=== PATIENT | female | born 1950 | race Caucasian/White ===

== ENCOUNTER 2019-10-08 04:27 | Inpatient (IN) ==
[2019-10-08] MEDS ORDERED: LORazepam 2 MG/ML VIAL (IM USE) ONE (04:35)
[2019-10-08] MEDS ORDERED: SODIUM CHLORIDE 0.9% 1000ML 1,000 ML IV ONE (04:39)
--- NOTE | 2019-10-08 04:45 | Emergency Department Note ---
Impression & Plan Breast cancer metastasized to brain, Complex partial status epilepticus, Brain edema ED Provider Note Name: SHERMAN LAND Age: 69 Sex: F Arrives Via: Ambulance Informant: Patient, EMS, Nursing ED Provider: Jv Florian MD Chief Complaint: Seizure Impression: Complex partial status epilepticus Breast Cancer Metastasized to brain Brain Edema Medical Decision Making: Very pleasant 69 yr old female arrives with several hours left leg seizing with mild headache. H/o breast CA with met to brain and resultant seizures. Brain radiation followed by keppra and decadron and seizures had stopped for the last month. They were attempting to wean down decadron over last week and she started having seizure last night. 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 She is completely A&O though clearly having partial complex seizure left leg. Given IV ativan with resolution of seizures. A bit somnolent following this but still interacting well. No evidence infection. CT head with improved size mass though some localized edema/mass effect. No midline shift. No neuro deficits. Reviewed with [facility] oncology who agree with IV steroids and monitoring here, possibly adding/changing Keppra. Hospitalist comfortable with this plan. Givne prolonged seizure she is status but she has completely resolved without further seizure at this time and I do not feel she needs emergent EEG monitoring. Prior Medical Record and Triage/Nursing Notes reviewed by Me Additional history obtained from EMS Differentials:Brain mass, Brain bleed, Edema, Infection, dehydration, metabolic abnormality, hypo/hyperglycemia, electrolyte disturbance, anemia, hypoxia, cardiac sources, intracerebral event, toxicologic, neurologic, as well as other pathologies. Vital Signs: reviewed and remarkable for wnl Interventions: saline lock, nss bolus 1 L IV, Ativan 2mg IV Labs:Reviewed and remarkable for no significant abnormalities Imaging:X ray results are stated below per my interpretation: Chest: 1 view: No infiltrate, no effusion, normal cardiac border. [facility] Radiologist interpretation reviewed by me: CT head wo con: improved size right brain mass with increased localized mass. no midline shift EKG:Per My Interpretation: Indication Seizure: AV Paced 67 bpm, qtc 511. No Ectopy. No Ischemia. Compared to EKG 08/04/19, no significant changes. Cardiac/Tele Monitoring: Cardiac Monitoring: An Order was placed for continuous cardiac monitoring. The monitor shows a rate of 60 with a normal sinus rhythm. Consults:Dr Aliya Gutierrez Oncology and Dr Nell Gutierrez Hospitalist Plan: Disposition:Hospitalization. Condition: Fair Blood pressure:Normal.No Referral necessary Prescriptions:none History of Present Illness:69 / F arrives for evaluation of seizure. Patient with history metastatic breast ca to brain with several focal seizures over last few months. Tonight with onset headache and left leg twitching at 1:30am. After 5 minutes she took extra dose of decadron and keppra and seizure seemed to ease up. However shaking has once again returned. She is now having continues left leg twitching for well over an hours associated with periodic twitching of left side, not involving left arm nor head/neck. She notes headache has improved. No vision changes nor other symptoms. Denies cp, sob, back pain, nausea, vomiting, nor other symptoms. Recent MRI brain revealed improving brain lesion and thus they have been decreasing her Decadron dose over last week. She denies change in appetite. No drugs, etoh, smoking. No falls nor head injuries. Deneis fevers, urinary symptoms, cough nor infectious symptoms. ROS: See above HPI for pertinent positives & negatives. A total of 10 systems reviewed and were otherwise negative. 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 EYES: No scleral icterus, unremarkable pupils. ENT: Mucous membranes dry, no nasal congestion. NECK: No masses appreciated, nomeningismus, trachea is midline. RESPIRATORY: No dyspnea. Clear to auscultation and equal bilaterally. No wheeze, no rhonchi. CARDIOVASCULAR: Regular rate and rhythm.No murmurs, rubs, gallops appreciated. GASTROINTESTINAL: Abdomen soft, non-tender, no peritonitis.Bowel sounds positive.No masses appreciated. BACK: No midline tenderness, no CVA tenderness EXTREMITIES: Normal motion all extremities, no cyanosis, no edema. NEUROLOGIC: focal seizing of left leg with periodic twitching of left flank. Leg extended and internally rotated with plantar flexed toes. Alert and oriented, no acute motor or sensory deficits, no focal weakness, cranial nerves grossly intact. SKIN: No rash, no jaundice, no diaphoresis. PSYCH: Appropriate GCS: 15 ED Course: Times/Reassessments: Multiple, resolution of seizure and no further headache. Neuro intact. Agrees to hospitalization Jv Florian MD Past Med/Surg History Medical History (Updated 10/09/19 @ 18:38 by Shakir Sosa MD) Breast cancer (Inactive) "s/p left mastectomy and chemotherapy" GERD (gastroesophageal reflux disease) (Inactive) H/O radioactive iodine thyroid ablation Hypothyroidism (Inactive) Pleural effusion Pneumothorax Second degree heart block Surgical History (Updated 07/25/19 @ 08:40 by Kristie Paz, MICHELLE) H/O left mastectomy (Inactive) "10/16/11 with sentinel lymph node bx" History of esophagogastroduodenoscopy (EGD) (Inactive) History of hysteroscopy (Inactive) S/P cholecystectomy (Inactive) Family History (Updated 07/25/19 @ 08:46 by Kristie Paz, MICHELLE) Mother , age 87 bowel blockage and heart diease No problems noted. Father , age 81 unknown type of cancer No problems noted. Brother No problems noted. Brother No problems noted. Sister No problems noted. Sister Cancer skin cancer Daughter No problems noted. Daughter No problems noted. 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 Other Information That Helps Us Care for You: No Feels Safe at Home: Yes Safety Concerns: Feels Safe At This Time Smoking Status: Never smoker Second Hand Exposure: No ; Hx Alcohol Use: No Hx Substance Use: No Childhood Exposure to Second-Hand Smoke: Yes caffeine: Yes (3 cups per day green tea 3 times per week) during the past year weight has: decreased > 10 lbs Dental Care, Regularly: Yes Physical Activity Frequency: Daily Physical Activity Frequency Comment: daily walks Seatbelt Use: always Sunscreen Use: Yes Allergies Allergies Allergy/AdvReac Type Severity Reaction Status Date / Time No Known Allergies Allergy Verified 10/08/19 05:38 Home Meds Home Medications Medication Instructions Recorded Confirmed calcium carbonate-vitamin D3 1 tab PO BID 07/10/19 10/08/19 [Calcium 500 With D] levothyroxine 100 mcg PO QAM 07/10/19 10/08/19 abemaciclib 150 mg tablet 150 mg PO BID 07/25/19 10/08/19 denosumab 120 mg/1.7 mL (70 mg/mL) 120 mg SQ MONTHLY ml 07/25/19 10/08/19 subcutaneous solution letrozole 2.5 mg tablet 2.5 mg PO DAILY 07/25/19 10/08/19 fluticasone propionate 50 1 sprays INTRANASAL DAILY ml 08/12/19 10/08/19 mcg/actuation nasal spray,suspension K-Phos Original 1,000 mg PO DAILY 10/08/19 10/08/19 Previous Rx's Medication Instructions Recorded dexamethasone 4 mg PO TID #60 tab 10/10/19 levetiracetam [Keppra] 1,500 mg PO BID #180 tab 10/10/19 pantoprazole [Protonix] 40 mg PO DAILY #30 tab 10/10/19 potassium chloride [Klor-Con M10] 20 meq PO DAILY #14 tab 10/10/19 Results & Data (ED) Vital Signs Vital Signs - 24 hr 10/08/19 04:36 10/08/19 05:12 Temperature 36.5 C Temperature Source Oral Pulse Rate 66 Pulse Rate [Apical] 96 H Respiratory Rate 18 18 Respiratory Effort / Characteristics Non-Labored Respiratory Depth Normal Normal Blood Pressure 148/79 H Blood Pressure [Right Arm] 124/79 Blood Pressure Mean 102 Blood Pressure Mean [Right Arm] 94 Pulse Oximetry 99 99 Oxygen Delivery Method Room Air Room Air Sepsis Recent Fever Within 48 Hours No Sepsis New/Unexplained Change in Mental Status No Sepsis Action Taken by Nursing No Action Required Laboratory Data Result diagrams: 10/09/19 05:30 10/10/19 08:55 Lab Results 10/08/19 10/08/19 Range/Units 04:40 04:40 WBC 7.01 (4.8-10.8) K/uL RBC 4.05 L (4.2-5.4) M/uL Hgb 12.9 (12.0-16.0) g/dL Hct 37.4 (37-47) % MCV 92.3 (80-100) fL MCH 31.9 (25-34) pg MCHC 34.5 (32-36) g/dL RDW Std Deviation 70.5 H (36.4-46.3) fL RDW Coeff of Mayuri 20.9 H (11.5-14.5) % Plt Count 201 (130-400) K/uL MPV 8.5 (7.4-10.4) fL Immature Gran % (Auto) 0.3 % Neut % (Auto) 72.8 % Lymph % (Auto) 19.8 % [place] % (Auto) 5.6 % Eos % (Auto) 1.1 % Baso % (Auto) 0.4 % Immature Gran # (Auto) 0.02 (0.00-0.02) K/uL Neut # (Auto) 5.10 (1.4-6.5) K/uL Lymph # (Auto) 1.39 (1.2-3.4) K/uL [place] # (Auto) 0.39 (0.11-0.59) K/uL Eos # (Auto) 0.08 (0-0.5) K/uL Baso # (Auto) 0.03 (0-0.2) K/uL Anisocytosis Present Sodium 137 (136-145) mmol/L Potassium 3.4 L (3.5-5.1) mmol/L Chloride 105 (98-107) mmol/L Carbon Dioxide 28 (21-32) mmol/L Anion Gap 4.0 (3-11) BUN 14 (7-18) mg/dl Creatinine 0.85 (0.6-1.2) mg/dl Est Cr Clr Drug Dosing 53.1 ml/min Est GFR ( Amer) 82.2 Est GFR (Non-Af Amer) 70.9 BUN/Creatinine Ratio 17.0 (10-20) Glucose 129 H (70-99) mg/dl Calcium 9.2 (8.5-10.1) mg/dl Magnesium 2.2 (1.8-2.4) mg/dl Total Creatine Kinase 75 (26-192) U/L Administered Medications Discontinued Medications Acetaminophen (Tylenol) 650 mg PO Q4H PRN PRN Reason: Pain or Fever Stop: 11/07/19 08:16 Last Admin: 10/09/19 15:21 Dose: 650 mg Documented by: [id number] Dexamethasone (Decadron) 4 mg PO Q8 SON Stop: 11/07/19 15:59 Last Admin: 10/10/19 14:28 Dose: 4 mg Documented by: [id number] Admin: 10/10/19 06:12 Dose: 4 mg Documented by: [id number] Admin: 10/09/19 21:25 Dose: 4 mg Documented by: [id number] Admin: 10/09/19 14:43 Dose: 4 mg Documented by: [id number] Admin: 10/09/19 05:39 Dose: 4 mg Documented by: [id number] Admin: 10/08/19 19:48 Dose: 4 mg Documented by: [id number] Admin: 10/08/19 16:16 Dose: 4 mg Documented by: [id number] Dexamethasone Sodium Phosphate (Decadron Pf) 10 mg IV NOW ONE Stop: 10/08/19 05:46 Last Admin: 10/08/19 05:57 Dose: 10 mg Documented by: [id number] Fluticasone Propionate (Flonase) 1 sprays NA DAILY [facility] Stop: 11/07/19 08:59 Last Admin: 10/10/19 08:01 Dose: 1 sprays Documented by: [id number] Admin: 10/09/19 09:10 Dose: 1 sprays Documented by: [id number] Admin: 10/08/19 08:58 Dose: 1 sprays Documented by: [id number] Sodium Chloride (Nss 1000ml) 1,000 mls @ 999 mls/hr IV .Q1H1M ONE Stop: 10/08/19 05:39 Last Infusion: 10/08/19 05:39 Dose: 0 mls/hr Documented by: [id number] Admin: 10/08/19 04:38 Dose: 999 mls/hr Documented by: [id number] Sodium Chloride (Nss 1000ml) 1,000 mls @ 80 mls/hr IV .[id number] SON Stop: 11/07/19 08:16 Last Infusion: 10/09/19 18:57 Dose: 0 mls/hr Documented by: [id number] Admin: 10/09/19 09:14 Dose: 80 mls/hr Documented by: [id number] Infusion: 10/09/19 08:20 Dose: 80 mls/hr Documented by: [id number] Admin: 10/08/19 19:50 Dose: 80 mls/hr Documented by: [id number] Infusion: 10/08/19 19:50 Dose: 80 mls/hr Documented by: [id number] Admin: 10/08/19 09:05 Dose: 80 mls/hr Documented by: [id number] Levetiracetam 1,000 mg/ Sodium (Chloride) 110 mls @ 440 mls/hr IV BID SON Stop: 11/07/19 08:44 Last Infusion: 10/08/19 10:07 Dose: 0 mls/hr Documented by: [id number] Admin: 10/08/19 09:18 Dose: 440 mls/hr Documented by: [id number] Dexamethasone Sodium Phosphate (4 mg/ Syringe) 1 mls @ 1 mls/min IV Q6H SON Stop: 11/07/19 08:59 Last Admin: 10/08/19 09:18 Dose: 1 mls/min Documented by: [id number] Potassium Chloride (K Leon / Wtr) 10 meq in 100 mls @ 100 mls/hr IV Q1H SON Stop: 10/08/19 10:59 Last Infusion: 10/08/19 13:19 Dose: 0 mls/hr Documented by: [id number] Admin: 10/08/19 11:10 Dose: 100 mls/hr Documented by: [id number] Infusion: 10/08/19 10:18 Dose: 100 mls/hr Documented by: [id number] Admin: 10/08/19 09:18 Dose: 100 mls/hr Documented by: [id number] Letrozole (Femara) 2.5 mg PO DAILY SON Stop: 11/07/19 08:59 Last Admin: 10/08/19 08:58 Dose: 2.5 mg Documented by: [id number] Cosigned by: [id number] Letrozole (Femara) 2.5 mg PO DAILY SON Stop: 11/07/19 08:59 Last Admin: 10/10/19 08:01 Dose: 2.5 mg Documented by: [id number] Cosigned by: [id number] Admin: 10/09/19 09:10 Dose: 2.5 mg Documented by: [id number] Cosigned by: [id number] Levetiracetam (Keppra) 1,500 mg PO BID SON Stop: 11/07/19 20:59 Last Admin: 10/10/19 08:01 Dose: 1,500 mg Documented by: [id number] Admin: 10/09/19 20:35 Dose: 1,500 mg Documented by: [id number] Admin: 10/09/19 09:10 Dose: 1,500 mg Documented by: [id number] Admin: 10/08/19 19:48 Dose: 1,500 mg Documented by: [id number] Levothyroxine Sodium (Synthroid) 100 mcg PO DAILYBB [facility] Stop: 11/07/19 08:59 Last Admin: 10/10/19 05:52 Dose: 100 mcg Documented by: [id number] Admin: 10/09/19 05:39 Dose: 100 mcg Documented by: [id number] Admin: 10/08/19 08:57 Dose: 100 mcg Documented by: [id number] Lorazepam (Ativan) Confirm Administered Dose 2 mg .ROUTE .STK-MED ONE Stop: 10/08/19 04:36 Last Admin: 10/08/19 04:36 Dose: 2 mg Documented by: [id number] Magnesium Oxide (Mag-Ox) 400 mg PO BID [facility] Stop: 11/08/19 12:59 Last Admin: 10/10/19 08:01 Dose: 400 mg Documented by: [id number] Admin: 10/09/19 20:35 Dose: 400 mg Documented by: [id number] Admin: 10/09/19 13:43 Dose: 400 mg Documented by: [id number] Miscellaneous (Order Awaiting Action) 1 ea N/A QS [facility] Stop: 11/07/19 08:34 Last Admin: 10/09/19 09:16 Dose: Not Given Documented by: [id number] Admin: 10/08/19 22:59 Dose: Not Given Documented by: [id number] Admin: 10/08/19 17:34 Dose: 1 ea Documented by: [id number] Admin: 10/08/19 13:43 Dose: Not Given Documented by: [id number] Miscellaneous (Order Awaiting Action) 1 ea N/A QS [facility] Stop: 11/07/19 08:59 Last Admin: 10/10/19 00:08 Dose: Not Given Documented by: [id number] Admin: 10/09/19 16:46 Dose: Not Given Documented by: [id number] Admin: 10/09/19 09:15 Dose: Not Given Documented by: [id number] Admin: 10/08/19 22:59 Dose: Not Given Documented by: [id number] Admin: 10/08/19 16:20 Dose: Not Given Documented by: [id number] Multivitamins/Minerals (Caltrate Plus) 1 tab PO BID SON; Protocol Stop: 11/07/19 08:59 Last Admin: 10/10/19 08:00 Dose: 1 tab Documented by: [id number] Admin: 10/09/19 20:35 Dose: 1 tab Documented by: [id number] Admin: 10/09/19 09:08 Dose: 1 tab Documented by: [id number] Admin: 10/08/19 19:48 Dose: 1 tab Documented by: [id number] Admin: 10/08/19 08:56 Dose: 1 tab Documented by: [id number] Verzenio ( Abemaciclib) 150mg - Patient's Own Med 1 ea PO BID SON; Protocol Stop: 11/07/19 12:44 Last Admin: 10/10/19 08:02 Dose: 150 mg Documented by: [id number] Admin: 10/09/19 20:35 Dose: 1 mg Documented by: [id number] Admin: 10/09/19 09:07 Dose: 150 mg Documented by: [id number] Admin: 10/08/19 17:35 Dose: Not Given Documented by: [id number] Admin: 10/08/19 13:21 Dose: 150 mg Documented by: [id number] K-Phos Original ~ Non-Formulary Patient's Own Med 2 ea PO DAILY SON Stop: 11/09/19 12:59 Last Admin: 10/10/19 14:28 Dose: 2 tabs Documented by: [id number] Potassium Chloride (Klor-Con M20) 40 meq PO ONE ONE Stop: 10/08/19 09:01 Last Admin: 10/08/19 09:17 Dose: 40 meq Documented by: [id number] Potassium Chloride (Klor-Con M20) 20 meq PO NOW STA Stop: 10/09/19 13:01 Last Admin: 10/09/19 13:43 Dose: 20 meq Documented by: [id number] Potassium Chloride (Klor-Con M20) 40 meq PO NOW STA Stop: 10/10/19 11:16 Last Admin: 10/10/19 12:47 Dose: 40 meq Documented by: [id number] Discharge Plan Visit Data *Final* Discharge Date/Time: 10/08/19 07:45 Chief Complaint: Seizure Stated Complaint: SEIZURES/HEADACHE ED Provider: Jv Florian Discharge Problem: Breast cancer metastasized to brain, Complex partial status epilepticus, Brain edema Patient Disposition: Admitted As Inpatient Discharge Instructions Interventions: ED Discharge Assessment Last Done: 10/08/19 07:45 Discharge Problem: Breast cancer metastasized to brain Qualifiers: Laterality: right Qualified Code(s): C50.911 - Malignant neoplasm of unspecified site of right female breast Complex partial status epilepticus Qualifiers: Epilepsy type: partial symptomatic Intractability: not intractable Qualified Code(s): G40.201 - Localization-related (focal) (partial) symptomatic epilepsy and epileptic syndromes with complex partial seizures, not intractable, with status epilepticus
[2019-10-08 04:54] LABS: Basophils # (auto) 0.03 K/uL (0-0.2); Basophils % (auto) 0.4 %; Eosinophils # (auto) 0.08 K/uL (0-0.5); Eosinophils % (auto) 1.1 %; Hematocrit (blood only) 37.4 % (37-47); Hemoglobin 12.9 g/dL (12.0-16.0); Immature Granulocytes # (auto) 0.02 K/uL (0.00-0.02); Immature Granulocytes % (auto) 0.3 %; Lymphocytes # (auto) 1.39 K/uL (1.2-3.4); Lymphocytes % (auto) 19.8 %; Mean Corpuscular Hemoglobin 31.9 pg (25-34); Mean Corpuscular Hgb Conc 34.5 g/dL (32-36); Mean Corpuscular Volume 92.3 fL (80-100); Mean Platelet Volume 8.5 fL (7.4-10.4); Monocytes # (auto) 0.39 K/uL (0.11-0.59); Monocytes % (auto) 5.6 %; Neutrophils % (auto) 72.8 %; Platelet Count 201 K/uL (130-400); RDW Coefficient of Variation 20.9 % (11.5-14.5); RDW Standard Deviation 70.5 fL (36.4-46.3); Red Blood Count 4.05 M/uL (4.2-5.4); White Blood Count 7.01 K/uL (4.8-10.8)
[2019-10-08 05:12] LABS: Calcium 9.2 mg/dl (8.5-10.1); Creatinine Clr Calc Pharmacy 53.1 ml/min; Est GFR (African American) 82.2; Est GFR (Non-African American) 70.9; Magnesium 2.2 mg/dl (1.8-2.4); Potassium 3.4 mmol/L (3.5-5.1)
[2019-10-08 05:29] LABS: Anisocytosis Present
[2019-10-08] MEDS ORDERED: DEXAMETHASONE **PF** INJ 10 MG/ML VIAL IV ONE (05:45)
--- NOTE | 2019-10-08 06:54 | CT Scan Report ---
CT head/brain wo con CLINICAL HISTORY: 69 years-old Female presenting with focal left leg seizure, headache, known brain m et. TECHNIQUE: Multidetector CT imaging of the head was performed without the use of intravenous contrast . IV contrast: None. One or more dose lowering techniques were used consistent with the principles of ALARA (as low as reasonably achievable), including automatic exposure control, mA or kV adjustment t o individual patient size, and/or use of iterative reconstruction. COMPARISON: MRI brain from 09/22/[address] from 07/10/2019. CT DOSE (mGy.cm): The estimated cumulative dose is 537.48 mGy.cm. FINDINGS: Motion [employer] Cartoonist topogram: Unremarkable. Ventricles and sulci normal in size. No hemorrhage. Heterogeneously hyperdense 22 mm lesion at the ri ght frontoparietal vertex with surrounding hypoattenuation within the white matter suggesting vasogen ic edema. The degree of vasogenic edema may be mildly increased. The lesion is essentially unchanged in size previously measuring 23 mm in July though possibly slightly less dense on the current exa m. Mild regional mass effect. No acute territorial infarct. No midline shift. No extra-axial fluid co llection. Paranasal sinuses and mastoid air cells clear. Calvarium intact. IMPRESSION: 1. Stable or near stable appearance of the right frontoparietal vertex hyperdense lesion with surrou nding vasogenic edema. Edema may be mildly increased. The density suggesting a hemorrhagic lesion. No new lesion. 2. No acute intracranial pathology. ACT 112: Negative or not required by law. Electronically signed by: Jacky Hernández M.D. 10/08/2019 6:53 AM
[2019-10-08] MEDS ORDERED: ACETAMINOPHEN 325 MG TAB PO PRN (08:17)
[2019-10-08] MEDS ORDERED: NITROGLYCERIN SL 0.4 MG/TAB TAB SL PRN (08:17)
[2019-10-08] MEDS ORDERED: DEXAMETHASONE SOD INJ 4 MG/ML VIAL IV SCH (08:17)
[2019-10-08] MEDS ORDERED: LORazepam 1 MG/2 ML VIAL IV PRN (08:17)
[2019-10-08] MEDS ORDERED: ONDANSETRON INJ 2 MG/ML 2 ML VIAL IV PRN (08:17)
[2019-10-08] MEDS ORDERED: POLYETHYLENE (MIRALAX) 17 GM PACK PO PRN (08:17)
[2019-10-08] MEDS ORDERED: levETIRAcetam 1,000 MG in 0.9 % SODIUM CHLORIDE 100 ML IV SCH (08:45)
[2019-10-08] MEDS: CALCIUM 600MG + VIT D 400 IU TAB PO SCH ×2 (08:56→19:48)
[2019-10-08] MEDS: LEVOTHYROXINE SODIUM 100 MCG TABLET PO SCH (08:57)
[2019-10-08] MEDS: FLUTICASONE PROPIONATE NA SPR 16 GM BTL SCH (08:58)
[2019-10-08] MEDS ORDERED: LETROZOLE 2.5 MG TAB PO SCH (09:00)
[2019-10-08] MEDS ORDERED: POTASSIUM CHLORIDE 20 MEQ TABCR PO ONE (09:00)
[2019-10-08] MEDS ORDERED: CALCIUM 600MG + VIT D 400 IU TAB PO SCH ×2 (09:00→13:00)
[2019-10-08] MEDS ORDERED: POTASSIUM PHOSPHATE MONOBASIC 500 MG TAB PO SCH (09:00)
[2019-10-08] MEDS ORDERED: DEXAMETHASONE SOD PHOSPHATE 4 MG in SYRINGE 0 ML IV SCH (09:00)
[2019-10-08] MEDS: SODIUM CHLORIDE 0.9% 1000ML 1,000 ML IV SCH ×2 (09:05→19:50)
[2019-10-08] MEDS: POTASSIUM CHLORIDE / WTR 10 MEQ/100 ML PLCT IV SCH ×2 (09:18→11:10)
--- NOTE | 2019-10-08 09:21 | History and Physical Report ---
DATE OF ADMISSION: 10/08/2019 CHIEF COMPLAINT: Seizures. HISTORY OF PRESENT ILLNESS: This is a 69-year-old female with past medical history significant for metastatic breast cancer, history of complete heart block status post pacemaker, history of angina, posterior vitreous detachment, pernicious anemia, who lives at home with , presents for focal seizures. The patient noticed in the night her left lower extremity was shaking for sometime, it stopped and again after sometime it restarted and seemed to go away, but again it started and continues to shake, which prompted her to come to the ER. She started with these seizures since July when they found her to have brain mets. She was treated with Decadron and when the Decadron was tapered down in September, again the seizures came back and she was back on Decadron 4 mg b.i.d., but recent MRI scan showed brain mass has decreased in size, so Decadron was cut back to 2 mg b.i.d., which caused again seizures today tonight. ER physician talked to environmental aid hematology/oncology and they recommended to give IV steroids and monitor her in the hospital. She received a dose of Decadron in the ER, currently resting comfortably. The patient denies any loss of consciousness. Denies any headache, no dizziness, no blurred vision, no earache, no runny nose, no sore throat, no difficulty swallowing. No cough, no chest pain or shortness of breath, no nausea, no abdominal pain. Normal bowel and bladder movements. Appetite is okay. Ambulates okay, otherwise. ALLERGIES: No known drug allergies. PAST MEDICAL HISTORY: As mentioned above. PAST SURGICAL HISTORY: Breast lesion excision, bunion correction, colonoscopy, coronary angiogram, hysteroscopy with biopsy, polypectomy, laser trabeculoplasty, left simple mastectomy, pacemaker insertion, cholecystectomy, left retinal treatment. MEDICATIONS: The patient is on abemaciclib 150 mg p.o. b.i.d., calcium with vitamin D 1 tablet b.i.d., dexamethasone 2 mg p.o. b.i.d., Flonase 1 spray intranasally daily, letrozole 2.5 mg p.o. daily, Keppra 1000 mg p.o. b.i.d., levothyroxine 100 mg p.o. a.m., potassium [id number] p.o. daily. FAMILY HISTORY: Significant for mother had cancer. Father had blood disorder, cancer, glaucoma. SOCIAL HISTORY: , lives with her . No smoking, alcohol rarely. No drug use. REVIEW OF SYMPTOMS: As per HPI. Rest of review of symptoms negative. PHYSICAL EXAMINATION: GENERAL: The patient is of moderate build, not in acute distress. VITAL SIGNS: Temperature 36.5, pulse 96, respiratory rate 18, blood pressure 124/79, oxygen 99% on room air. HEENT: No pallor, no icterus. Pupils equal, round, reactive to light. NECK: No JVD, no neck masses. CARDIOVASCULAR: S1, S2 heard, regular rate and rhythm, no murmur, no gallop. RESPIRATORY SYSTEM: Normal AP diameter. No accessory muscle use. No wheezing, no crackles. ABDOMEN: Soft, bowel sounds present, nontender. No distention. CENTRAL NERVOUS SYSTEM: Cranial nerves II-XII grossly intact. Nonfocal. EXTREMITIES: No edema, no erythema. LABORATORY DATA: WBC 7, hemoglobin 12.9, hematocrit 37.4, platelets 201. Sodium 137, potassium 3.4, chloride 105, bicarbonate 28, BUN 14, creatinine 0.8, serum glucose 129, calcium 9.2, magnesium 2.2, total creatine kinase 75. IMAGING: CT of the head, preliminary report shows 2.1 cm density in the superior right calvarium along the right frontal lobe cortex with surrounding edema, the tumor is smaller than previous when it measured 2.5 cm. The amount of surrounding edema is slightly increased. There is some local mass effect without midline shift, no hemorrhage and no lesion identified. ASSESSMENT AND PLAN: This is a 69-year-old female with metastatic breast cancer, presents with focal seizures. 1. Focal seizures secondary to brain metastasis and increased edema. Due to the size of the brain metastasis decreased recently based on the MRI finding, Decadron was decreased from 4 mg to 2 mg b.i.d. In September also when she was tapered off Decadron, she had a seizure. on Keppra 1000mg po bid t home. Currently, after receiving 10 mg of Decadron, the seizures stopped in the Emergency Room. We will place her on IV Decadron 4 mg every 6 hours, place her on IV Keppra 1000 mg b.i.d. Monitor in telemetry floor. IV Ativan for breakthrough seizures and consult neurology and radiation oncology. Closely monitor. 2. Breast cancer. Continue home medications. 3. Hypothyroidism. Continue Synthroid. 4. History of complete heart block status post pacemaker. 5. Deep venous thrombosis prophylaxis, sequential compression devices. DISPOSITION: Monitor in the tele floor. Expect discharge home and follow with family doctor. Level 1 full code. MTDD
--- NOTE | 2019-10-08 09:33 | Electrocardiogram Report ---
Test Reason : Blood Pressure : / mmHG Vent. Rate : 067 BPM Atrial Rate : 061 BPM P-R Int : 218 ms QRS Dur : 154 ms QT Int : 484 ms P-R-T Axes : 056 -59 086 degrees QTc Int : 511 ms Poor data quality, interpretation may be adversely affected AV dual-paced rhythm Abnormal ECG When compared with ECG of 10-JUL-2019 21:58, Vent. rate has decreased BY 38 BPM Confirmed by Panda Roberts ([id number]) on 10/08/2019 9:33:18 AM Referred By: REFERRED SELF Confirmed By:Panda Roberts
--- NOTE | 2019-10-08 09:38 | Communication Note ---
Date of Service: October 08, 2019 I have reviewed the chart the imaging studies and the history as outlined as I have just received a neurologic consultation on Mrs. Oswald who is 69 years old and has known metastatic breast CA with a frontal lesion with surrounding vasogenic edema that has been very sensitive to withdrawal from Decadron in the sense that attempts to withdraw at home uniformly produce breakthrough focal motor seizures and she now presents with a similar syndrome, has received high dose of Decadron at the suggestions of radiation oncology and is now seizure- free. She is on Keppra thousand milligrams twice a day and has normal renal function I would recommend that her Keppra dose be raised to 1250 mg twice a day after determining a Keppra level and that her Decadron dose be managed by radiation oncology I really do not think neurology needs to be involved in her inpatient management at this point but certainly could see her on an outpatient basis if radiation oncology would feel more comfortable with us doing this I would be happy to discuss this case further with her attending physician and will be in the hospital later this afternoon to make brief visits to other patients and will be willing to see her then r and discuss management if this is felt to be necessary on an acute basis There is no value in performing EEG at this time as diagnosis is straightforward and any findings on the EEG positive or negative would not change our approach Juventino Hill MD
--- NOTE | 2019-10-08 13:12 | Radiation OncologyConsultation ---
Date of Consultation October 08, 2019 Assessment & Plan (1) Breast cancer metastasized to brain: Assessment: Ms. Oswald is a 69-year-old female with a previous history of locally advanced left breast cancer treated with left mastectomy and axillary lymph node dissection (2011) followed by adjuvant chemotherapy and tamoxifen. The patient was found to have metastatic disease involving a solitary lesion in the brain. The patient underwent stereotactic radiosurgery which completed in August 2019. She received 2400 cGy in 3 fractions of 800 cGy per fraction. The patient is currently receiving letrozole and abemaciclib underneath the supervision of Dr. Vahe Kay. The patient has been having issues with seizures and has been on Keppra and Decadron in the outpatient setting. The patient has been following with neurology and medical oncology regarding this issue. The patient did suffer seizures and was admitted to the hospital. Neurology has given recommendations including increasing Keppra. I am now seeing the patient in consultation. Recommendation: 1. From radiation oncology perspective, continue routine imaging protocol of MRI of the brain every 3 months. I did review the imaging studies with radiology and there is no need for further scans to be done during this admission unless the patient's symptoms change dramatically and it is warranted by primary team. 2. Defer Keppra and dexamethasone to neurology in the outpatient setting. I spoke with Dr. Kay from medical oncology and the consensus is to allow 1 provider to manage both medications given the fact that the patient does have a history of seizure activity. Plan: 1. We will plan to coordinate MRI of the brain and follow-up on the patient's discharge from the hospital. It should be scheduled for mid December based on data from previous based on date from previous MRI. Please have the patient call our office when she is discharged. [phone]. 2. Recommend the primary team make sure the patient has follow-up with neurology in the outpatient setting. 3. Continue follow-up with medical oncology. 4. Continue follow-up with all the providers. 5. Patient and family encouraged to call us with any further questions or concerns. Laterality: right Qualified Code(s): C50.911 - Malignant neoplasm of unspecified site of right female breast; C79.31 - Secondary malignant neoplasm of brain Present on Admission?: Yes History of Present Illness Attending Physician: Shakir Sosa MD History of Present Illness 2012. Status post left mastectomy and left axillary lymph node dissection for breast cancer. Original pathology reveals 3 cm primary tumor, 3/8 lymph nodes positive for metastatic disease with close margins. Estrogen receptor positive, progesterone receptor positive and HER-2 negative. 2011. Status post 6 cycles of TAC chemotherapy. 2012. Status post tamoxifen for 5 years. 07/10/2019. Patient presents with seizure and emergency room department. Patient transferred to [facility] for further work-up and evaluation. 07/11/2019. MRI brain. IMPRESSION: 2.5 cm mass with surrounding edema in the right parietal lobe just behind the central sulcus. This is consistent with primary or metastatic neoplasm. Small foci of T2/FLAIR hyperintensity in the right frontal centrum semiovale and left periatrial white matter of unknown significance. Otherwise unremarkable MRI of brain with no additional lesions seen. 07/12/2019. Left pleural fluid. Metastatic carcinoma, compatible with breast primary. 07/18/2019. Medical oncology follow-up with Dr. Vahe Kay. Dr. Kay has recommended continuation of anti-hormonal therapy utilizing Femara and Abemaciclib. Dr. Kay is also recommended Xgeva. Dr. Kay is also recommended radiation oncology consultation for treatment for brain metastasis. The patient will remain on Decadron 4 mg p.o. twice daily. PET/CT also recommended. 07/21/2019. PET/CT. IMPRESSION: Hypermetabolic hypodense left upper lobe mass compatible with malignancy. Hypermetabolic bilateral mediastinal, supraclavicle and hilar lymph nodes are most suspicious for percy metastasis. Additional metastatic foci include multiple osseous lesions as described above and presumably hypermetabolic periportal lymph nodes. Moderate size left pleural effusion with component of loculation is suspicious for malignant effusion. 08/12/2019. Status post completion of radiation therapy to the brain with SBRT. She received 2400 cGy. 3 fractions, 800 cGy per fraction. 08/20/2019. Medical oncology follow-up with Dr. Kay. Dr. Kay has recommended a restaging PET/CT scan in October 2019 and a MRI brain in November 2019. Dr. Kay has recommended continuation of current medications including letrozole and abemaciclib. Has recommended the patient continue on Decadron and Keppra. 09/22/2019. MRI brain. IMPRESSION: 1. Slight interval decreased size of the intra-axial mass at the right frontoparietal vertex now measuring 21 x 19 x 22 mm. Persistent similar enhancement pattern suggests residual viable disease. No additional lesion. 09/23/2019. Neurology telemedicine visit with Dr. Dye. Dr. Dye has recommended Keppra 1000 mg twice daily and continuation of Decadron. 10/08/2019. Patient admitted to hospital due to seizures. 10/08/2019. CT of head without contrast. IMPRESSION: 1. Stable or near stable ap pearance of the right frontoparietal vertex hyperdense lesion with surrounding vasogenic edema. Edema may be mildly increased. The density suggesting a hemorrhagic lesion. No new lesion. 2. No acute intracranial pathology. 10/08/2019. Neurology communication from Dr. Hill. Dr. Hill has recommended outpatient neurology management and continuation of current medications and increasing Keppra to 1215 mg twice daily. Currently, the patient is doing better in the hospital. She does still have some tingling sensation in her left lower extremity but her seizures have resolved. Allergies Allergy/AdvReac Type Severity Reaction Status Date / Time No Known Allergies Allergy Verified 10/08/19 05:38 Home Medications Home Medications Medication Instructions Recorded Confirmed Type calcium carbonate-vitamin D3 1 tab PO BID 07/10/19 10/08/19 History [Calcium 500 With D] levothyroxine 100 mcg PO QAM 07/10/19 10/08/19 History abemaciclib 150 mg tablet 150 mg PO BID 07/25/19 10/08/19 History denosumab 120 mg/1.7 mL (70 mg/mL) 120 mg SQ MONTHLY ml 07/25/19 10/08/19 History subcutaneous solution letrozole 2.5 mg tablet 2.5 mg PO DAILY 07/25/19 10/08/19 History fluticasone propionate 50 1 sprays INTRANASAL DAILY ml 08/12/19 10/08/19 Histo ry mcg/actuation nasal spray,suspension dexamethasone 2 mg PO BID 10/08/19 10/08/19 History levetiracetam 1,000 mg PO BID 10/08/19 10/08/19 History potassium phosphate, monobasic 1,000 mg PO DAILY 10/08/19 10/08/19 History [K-Phos Original] Patient History Medical History (Updated 10/08/19 @ 05:58 by Jv Florian MD) Breast cancer (Inactive) "s/p left mastectomy and chemotherapy" GERD (gastroesophageal reflux disease) (Inactive) H/O radioactive iodine thyroid ablation Hypothyroidism (Inactive) Pleural effusion Pneumothorax Second degree heart block Surgical History (Updated 07/25/19 @ 08:40 by Kristie Paz, RN) H/O left mastectomy (Inactive) "10/16/11 with sentinel lymph node bx" History of esophagogastroduodenoscopy (EGD) (Inactive) History of hysteroscopy (Inactive) S/P cholecystectomy (Inactive) Family History (Updated 07/25/19 @ 08:46 by Kristie Paz, RN) Mother , age 87 bowel blockage and heart diease No problems noted. Father , age 81 unknown type of cancer No problems noted. Brother No problems noted. Brother No problems noted. Sister No problems noted. Sister Cancer skin cancer Daughter No problems noted. Daughter No problems noted. 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 Other Information That Helps Us Care for You: No Feels Safe at Home: Yes Safety Concerns: Feels Safe At This Time Smoking Status: Never smoker Second Hand Exposure: No ; Hx Alcohol Use: No Hx Substance Use: No Childhood Exposure to Second-Hand Smoke: Yes caffeine: Yes (3 cups per day green tea 3 times per week) during the past year weight has: decreased > 10 lbs Dental Care, Regularly: Yes Physical Activity Frequency: Daily Physical Activity Frequency Comment: daily walks Seatbelt Use: always Sunscreen Use: Yes Review of Systems Review of Systems: All systems reviewed & are unremarkable except as noted in HPI & below Physical Exam Constitutional: WD/WN, vitals as above well developed and well nourished Eyes: PERRL, conjunctivae normal, anicteric sclerae ENMT: external ear and nose normal, oropharynx normal Neck: trachea midline, no thyromegaly Respiratory: normal respiratory effort, lungs clear to auscultation Cardiovascular: RRR, no murmur, no edema Gastrointestinal (Abdomen): normal bowel sounds, soft, nontender, no hepatosplenomegaly Musculoskeletal: no cyanosis or clubbing, extremities motor strength 5/5 Skin: no rashes, warm and dry Neurologic: patellar DTR's 2+ bilat, sensation intact and PERRL, EOMI, accommodation nl, no face palsy, no dysarthria Psychiatric: A+Ox3, euthymic affect Time Spent Attending I spent 10 minutes in preparation for this consultation including reviewing all the clinical records, reviewing laboratory studies, pathology reports and imaging results. I spent 10 minutes with direct face to face interaction with the patient and/or family including performing a physical exam and answering all questions. I spent 5 minutes documenting this patient's visit. I spent 5 speaking with the following providers regarding this patient's care: Radiology, Dr. Hernández.
[2019-10-08] MEDS: VERZENIO 150 MG PO SCH ×2 (13:21→17:35)
[2019-10-08] MEDS: dexAMETHasone 4 MG TAB PO SCH ×2 (16:16→19:48)
--- NOTE | 2019-10-08 17:22 | Communication Note ---
Date of Service: October 08, 2019 I saw Kayli zuniga. She was eating supper was bright active alert talked about her left leg feeling a little unstable and describes some periodic tremulousness and it but no overt seizure activity. She has been evaluated by Dr. Sandra in our office by telephone recently and the recommendations were to bump the Keppra up to 1500 mg twice a day in the ev ent that she would have a breakthrough seizure as the Decadron was dropped and my recommendations to move up to 1250 mg twice a day on my prior note should be ignored and Dr. Sandra's recommendations followed She is being managed by radiation oncology and medical oncology for the Decadron and will be seeing Dr. Sandra in follow-up in several months time. I had suggested that we obtain a baseline Keppra level and this is been done and then I think we should have another Keppra level done in about 10 days and this sent off to Dr. Sandra for review just to be sure we do not push the Keppra into a more toxic range For now I am going to sign off the case as I suspect she will continue to improve and I hope she is ready for discharge tomorrow I have reviewed my recommendations several times today with Dr. Nikolai Hill MD
[2019-10-08] MEDS: levETIRAcetam 500 MG TAB PO SCH (19:48)
--- NOTE | 2019-10-08 19:52 | Communication Note ---
Date of Service: October 08, 2019 resting in bed, comfortable no recurrence of L LE focal seizure since admission communicated with Dr. Hill, recommend to increase Keppra to 1500mg BID discussed with Dr. Vickie Kay, will increase Decadron PO to 4mg q8h then taper weekly Shakir Sosa MD
[2019-10-09] MEDS: dexAMETHasone 4 MG TAB PO SCH ×3 (05:39→21:25)
[2019-10-09] MEDS: LEVOTHYROXINE SODIUM 100 MCG TABLET PO SCH (05:39)
[2019-10-09 05:50] LABS: Hematocrit (blood only) 35.9 % (37-47); Hemoglobin 12.2 g/dL (12.0-16.0); Immature Granulocytes # (auto) 0.03 K/uL (0.00-0.02); Immature Granulocytes % (auto) 0.4 %; Lymphocytes # (auto) 0.68 K/uL (1.2-3.4); Lymphocytes % (auto) 9.9 %; Mean Corpuscular Hemoglobin 31.5 pg (25-34); Mean Corpuscular Volume 92.8 fL (80-100); Mean Platelet Volume 8.5 fL (7.4-10.4); Monocytes # (auto) 0.32 K/uL (0.11-0.59); Monocytes % (auto) 4.6 %; Neutrophils # (auto) 5.86 K/uL (1.4-6.5); Neutrophils % (auto) 85.1 %; Platelet Count 213 K/uL (130-400); RDW Coefficient of Variation 21.2 % (11.5-14.5); RDW Standard Deviation 72.1 fL (36.4-46.3); Red Blood Count 3.87 M/uL (4.2-5.4); White Blood Count 6.89 K/uL (4.8-10.8)
[2019-10-09 06:16] LABS: Calcium 8.4 mg/dl (8.5-10.1); Creatinine Clr Calc Pharmacy 66.9 ml/min; Est GFR (African American) 104.4; Est GFR (Non-African American) 90.1; Magnesium 2.1 mg/dl (1.8-2.4); Potassium 3.6 mmol/L (3.5-5.1)
[2019-10-09 06:22] LABS: Polychromasia 1+
[2019-10-09] MEDS: VERZENIO 150 MG PO SCH ×2 (09:07→20:35)
[2019-10-09] MEDS: CALCIUM 600MG + VIT D 400 IU TAB PO SCH ×2 (09:08→20:35)
[2019-10-09] MEDS: LETROZOLE 2.5 MG TAB PO SCH (09:10)
[2019-10-09] MEDS: FLUTICASONE PROPIONATE NA SPR 16 GM BTL SCH (09:10)
[2019-10-09] MEDS: levETIRAcetam 500 MG TAB PO SCH ×2 (09:10→20:35)
[2019-10-09] MEDS: SODIUM CHLORIDE 0.9% 1000ML 1,000 ML IV SCH (09:14)
[2019-10-09 10:38] LABS: Estimated Average Glucose 120 mg/dl; Hemoglobin A1C 5.8 % (4.5-5.6)
--- NOTE | 2019-10-09 12:58 | Hospitalist Progress Note ---
Date of Service October 09, 2019 Assessment & Plan (1) Focal seizures: 69 year old female with Breast CA with Mets, Heart Block s/p PM, presenting with focal seizures. 1. Focal seizures secondary to brain metastasis and increased edema. CT head: IMPRESSION: 1. Stable or near stable appearance of the right frontoparietal vertex hyperdense lesion with surrounding vasogenic edema. Edema may be mildly increased. The density suggesting a hemorrhagic lesion. No new lesion. 2. No acute intracranial pathology. -- Keppra increased to 1500mg BID Decadron also increased to 4mg q8h -- (+) recurrences early AM discussed with Dr. Hill, maintain above doses for now will monitor closely s/p Mechanical Fall -- happened after standing up after using the toilet no LOC -- CT head: no acute injury -- denies any other pain her body -- PT/OT eval fall precautions 2. Breast cancer. Continue home medications. 3. Hypothyroidism. Continue Synthroid. 4. History of complete heart block status post pacemaker. 5. Deep venous thrombosis prophylaxis, sequential compression devices. PT/OT eval pending Admission and Anticipated Discharge Date Admission Date: October 08, 2019 Subjective ff up for focal seizures seen resting in bed, comfortable not in distress reports recurrence of LLE focal seizure at least 3x since early AM, lasted for about 3-5 minutes, less intense associated with mild headache- resolved denies other symptoms Review of Systems Review of Systems: All systems reviewed & are unremarkable except as noted in HPI & below Physical Exam Physical Exam: General- oriented x 3, not in distress, speaks in sentences with no effort or accessory muscle use Eyes- anicteric Neck- no JVD Lungs- clear breath sounds bilaterally, no rales/wheezes Heart- normal rate, regular rhythm; no murmurs Abdomen- normal bowel sounds, nondistended, soft, nontender Extremities- no pretibial edema, no calf tenderness Neuro- alert, oriented x 3; no gross focal neurologic deficits Skin- warm & dry Results & Data Results & Data ([facility]) Vital Signs (Past 12 Hours) Vital Signs Temp Pulse Resp BP Pulse Ox 10/09/19 11:11 36.8 C 81 17 131/84 98 10/09/19 07:08 36.6 C 86 18 140/80 97 10/09/19 03:26 36.5 C 77 16 127/78 97 Laboratory Results Laboratory Results - last 24 hr 10/09/19 10/09/19 10/09/19 05:30 05:30 05:30 WBC 6.89 RBC 3.87 L Hgb 12.2 Hct 35.9 L MCV 92.8 MCH 31.5 MCHC 34.0 RDW Std Deviation 72.1 H RDW Coeff of Mayuri 21.2 H Plt Count 213 MPV 8.5 Immature Gran % (Auto) 0.4 Neut % (Auto) 85.1 Lymph % (Auto) 9.9 Giles % (Auto) 4.6 Eos % (Auto) 0.0 Baso % (Auto) 0.0 Immature Gran # (Auto) 0.03 H Neut # (Auto) 5.86 Lymph # (Auto) 0.68 L Giles # (Auto) 0.32 Eos # (Auto) 0.00 Baso # (Auto) 0.00 Polychromasia 1+ Sodium 134 L Potassium 3.6 Chloride 107 Carbon Dioxide 21 Anion Gap 6.0 BUN 14 Creatinine 0.69 Est Cr Clr Drug Dosing 66.9 Est GFR ( Amer) 104.4 Est GFR (Non-Af Amer) 90.1 BUN/Creatinine Ratio 20.0 Glucose 132 H Estimat Average Glucose 120 Hemoglobin A1c 5.8 H Calcium 8.4 L Magnesium 2.1
[2019-10-09] MEDS ORDERED: POTASSIUM CHLORIDE 20 MEQ TABCR PO STA (13:00)
[2019-10-09] MEDS: MAGNESIUM OXIDE 400 MG TAB PO SCH ×2 (13:43→20:35)
--- NOTE | 2019-10-09 15:19 | CT Scan Report ---
CT head/brain wo con CLINICAL HISTORY: Head trauma. Head pain. NO INTRACRANIAL METASTASIS. COMPARISON STUDY: 10/08/2019 TECHNIQUE: Axial CT of the brain is performed from the vertex to the skull base. IV contrast was not administered for this examination. A dose lowering technique was utilized adhering to the principles of ALARA. CT DOSE: 537.48 mGy.cm FINDINGS: There is a 16 mm slightly hyperdense mass within the right frontoparietal vertex with surrounding vas ogenic edema. There is no evidence of acute hemorrhage. There is no midline shift. There is no CT bradly dence of acute cortical infarction. There are minimal white matter hypodensities likely on a small vessel basis. There is no evidence of pathologic ventricular dilatation. There is no evidence of acute sinusitis IMPRESSION: 1. No acute intracranial findings 2. Slight interval decrease in the size of the right frontal parietal vertex mass with surrounding va sogenic edema 3. No evidence of acute intracranial injury. ACT 112: Negative or not required by law. Electronically signed by: Melvin Butler M.D. 10/09/2019 3:17 PM
--- NOTE | 2019-10-09 18:35 | Communication Note ---
Date of Service: Oct 09 2019 informed me that Mrs. Oswald has had several brief focal motor seizures this morning and I suggested that he continue the Keppra 1500 mg twice a day for for another 24 hours. It may take some time for the Keppra level to reach an appropriate point and the effect of Decadron will need more time to combat the peritumoral edema and hopefully result in better seizure control. These type of focal seizures may prove to be very difficult to manage totally but if they continue in this particular case the choices are to either add another anticonvulsant or push monotherapy little harder and move the Keppra up to 1750 mg twice a day as Dr. Delgado will be assuming the neurology service tomorrow and I would suggest that if this focal motor seizure activity continues he be contacted for advice. HE may prefer to add a second anticonvulsant such as Depakote or even carbamazepine derivative or conceivably Vimpat rather than increasing the Keppra Juventino Hill MD
[2019-10-10] MEDS: LEVOTHYROXINE SODIUM 100 MCG TABLET PO SCH (05:52)
[2019-10-10] MEDS: dexAMETHasone 4 MG TAB PO SCH ×2 (06:12→14:28)
[2019-10-10] MEDS: CALCIUM 600MG + VIT D 400 IU TAB PO SCH (08:00)
[2019-10-10] MEDS: levETIRAcetam 500 MG TAB PO SCH (08:01)
[2019-10-10] MEDS: FLUTICASONE PROPIONATE NA SPR 16 GM BTL SCH (08:01)
[2019-10-10] MEDS: MAGNESIUM OXIDE 400 MG TAB PO SCH (08:01)
[2019-10-10] MEDS: LETROZOLE 2.5 MG TAB PO SCH (08:01)
[2019-10-10] MEDS: VERZENIO 150 MG PO SCH (08:02)
[2019-10-10 09:41] LABS: Potassium 3.4 mmol/L (3.5-5.1)
[2019-10-10 09:42] LABS: Magnesium 2.3 mg/dl (1.8-2.4)
[2019-10-10] MEDS ORDERED: POTASSIUM CHLORIDE 20 MEQ TABCR PO STA (11:15)
--- NOTE | 2019-10-10 11:59 | Hospitalist Progress Note ---
Date of Service October 10, 2019 Assessment & Plan (1) Focal seizures: 69 year old female with Breast CA with Mets, Heart Block s/p PM, presenting with focal seizures. 1. Focal seizures secondary to brain metastasis and increased edema. CT head: IMPRESSION: 1. Stable or near stable appearance of the right frontoparietal vertex hyperdense lesion with surrounding vasogenic edema. Edema may be mildly increased. The density suggesting a hemorrhagic lesion. No new lesion. 2. No acute intracranial pathology. -- Keppra increased to 1500mg BID Decadron also increased to 4mg q8h -- no recurrence since yesterday afternoon LLE with some numbness Neuro re-eval today pending s/p Mechanical Fall -- happened after standing up after using the toilet 10/09/19 no LOC -- CT head: no acute injury -- denies any other pain her body -- PT/OT eval: 25/12 care or Rehab- patient prefers to come home, very supportive fall precautions 2. Breast cancer. Continue home medications. 3. Hypothyroidism. Continue Synthroid. 4. History of complete heart block status post pacemaker. 5. Deep venous thrombosis prophylaxis, sequential compression devices. PT/OT eval: 25/12 care or Rehab- patient prefers to come home, very supportive Disposition possible d/c home today with home health services when cleared by Neuro Admission and Anticipated Discharge Date Admission Date: October 08, 2019 Subjective ff up for focal seizures seen resting in bed, sitting up comfortable, in good spirits states she feels better today no focal seizures since yesterday afternoon no headache does report some numbness and some loss of coordination with left lower leg no chest pain, dyspnea, dizziness ambulating to the bathroom ok as per patient no other symptoms would like to be discharged home today if possible Review of Systems Review of Systems: All systems reviewed & are unremarkable except as noted in HPI & below Physical Exam Physical Exam: General- oriented x 3, not in distress, speaks in sentences with no effort or accessory muscle use Eyes- anicteric Neck- no JVD Lungs- clear breath sounds bilaterally, no crackles no wheezing Heart- normal rate, regular rhythm; no murmurs Abdomen- normal bowel sounds, nondistended, soft, nontender Extremities- no pretibial edema, no calf tenderness Neuro- alert, oriented x 3; sensation on the left lower le%, no gross focal neurologic deficits Skin- warm & dry Results & Data Results & Data ([facility]) Vital Signs (Past 12 Hours) Vital Signs Temp Pulse Pulse Resp BP Pulse Ox 10/10/19 11:23 36.4 C L 76 18 129/81 97 10/10/19 07:11 36.9 C 77 18 143/85 H 97 10/10/19 07:04 77 10/10/19 04:01 36.5 C 68 18 133/84 97 Laboratory Results Laboratory Results - last 24 hr 10/10/19 08:55 Potassium 3.4 L Magnesium 2.3
[2019-10-10] MEDS ORDERED: [UNRECOGNIZED DRUG - OTHER] PO SCH (13:00)
[2019-10-10] MEDS ORDERED: POT PHOSPHATE MONOBASIC W/ SOD TAB PO SCH (13:00)
[2019-10-10 15:03] VITALS: BP 129/81; PULSE 93; TEMP 97.5; O2SAT 97
--- NOTE | 2019-10-10 16:17 | Discharge Summary ---
Date of Service October 10, 2019 Admission HPI Per Admitting Provider HISTORY OF PRESENT ILLNESS: This is a 69-year-old female with past medical history significant for metastatic breast cancer, history of complete heart block status post pacemaker, history of angina, posterior vitreous detachment, pernicious anemia, who lives at home with , presents for focal seizures. The patient noticed in the night her left lower extremity was shaking for sometime, it stopped and again after sometime it restarted and seemed to go away, but again it started and continues to shake, which prompted her to come to the ER. She started with these seizures since July when they found her to have brain mets. She was treated with Decadron and when the Decadron was tapered down in September, again the seizures came back and she was back on Decadron 4 mg b.i.d., but recent MRI scan showed brain mass has decreased in size, so Decadron was cut back to 2 mg b.i.d., which caused again seizures today tonight. 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 She received a dose of Decadron in the ER, currently resting comfortably. The patient denies any loss of consciousness. Denies any headache, no dizziness, no blurred vision, no earache, no runny nose, no sore throat, no difficulty swallowing. No cough, no chest pain or shortness of breath, no nausea, no abdominal pain. Normal bowel and bladder movements. Appetite is okay. Ambulates okay, otherwise. Admission Exam Per Admitting Provider GENERAL: The patient is of moderate build, not in acute distress. VITAL SIGNS: Temperature 36.5, pulse 96, respiratory rate 18, blood pressure 124/79, oxygen 99% on room air. HEENT: No pallor, no icterus. Pupils equal, round, reactive to light. NECK: No JVD, no neck masses. CARDIOVASCULAR: S1, S2 heard, regular rate and rhythm, no murmur, no gallop. RESPIRATORY SYSTEM: Normal AP diameter. No accessory muscle use. No wheezing, no crackles. ABDOMEN: Soft, bowel sounds present, nontender. No distention. CENTRAL NERVOUS SYSTEM: Cranial nerves II-XII grossly intact. Nonfocal. EXTREMITIES: No edema, no erythema. Principal Diagnosis BREAKTHROUGH FOCAL SEIZURES, BREAST CANCER WITH BRAIN METASTASES Discharge Exam General- oriented x 3, not in distress, speaks in sentences with no effort or accessory muscle use Eyes- anicteric Neck- no JVD Lungs- clear breath sounds bilaterally, no crackles no wheezing Heart- normal rate, regular rhythm; no murmurs Abdomen- normal bowel sounds, nondistended, soft, nontender Extremities- no pretibial edema, no calf tenderness Neuro- alert, oriented x 3; sensation on the left lower le%, no gross focal neurologic deficits Skin- warm & dry Discharge Data Allergies Allergy/AdvReac Type Severity Reaction Status Date / Time No Known Allergies Allergy Verified 10/08/19 05:38 Consultations 10/08/19 05:49 ED Decision to Admit Stat 10/08/19 08:17 Consult Case Management - Discharge Planning Routine Consult Neurology Routine Consult Radiation Oncology Routine Ordered Studies 10/08/19 04:38 CT head/brain wo con Urgent Ventricles and sulci normal in size. No hemorrhage. Heterogeneously hyperdense 22 mm lesion at the right frontoparietal vertex with surrounding hypoattenuation within the white matter suggesting vasogenic edema. The degree of vasogenic edema may be mildly increased. The lesion is essentially unchanged in size previously measuring 23 mm in July though possibly slightly less dense on the current exam. Mild regional mass effect. No acute territorial infarct. No midline shift. No extra-axial fluid collection. Paranasal sinuses and mastoid air cells clear. Calvarium intact. IMPRESSION: 1. Stable or near stable appearance of the right frontoparietal vertex hyperdense lesion with surrounding vasogenic edema. Edema may be mildly increased. The density suggesting a hemorrhagic lesion. No new lesion. 2. No acute intracranial pathology. 10/09/19 14:31 CT head/brain wo con Stat There is a 16 mm slightly hyperdense mass within the right frontoparietal vertex with surrounding vasogenic edema. There is no evidence of acute hemorrhage. There is no midline shift. There is no CT evidence of acute cortical infarction. There are minimal white matter hypodensities likely on a small vessel basis. There is no evidence of pathologic ventricular dilatation. There is no evidence of acute sinusitis IMPRESSION: 1. No acute intracranial findings 2. Slight interval decrease in the size of the right frontal parietal vertex mass with surrounding vasogenic edema 3. No evidence of acute intracranial injury. Hospital Course (1) Focal seizures: 69 year old female with Breast CA with Mets, Heart Block s/p PM, presenting with focal seizures. Focal seizures secondary to brain metastasis and increased edema. CT head: IMPRESSION: 1. Stable or near stable appearance of the right frontoparietal vertex hyperdense lesion with surrounding vasogenic edema. Edema may be mildly increased. The density suggesting a hemorrhagic lesion. No new lesion. 2. No acute intracranial pathology. -- evaluated by Neurologist Dr. Hill and Rad Onco Dr. Vickie Kay -- Keppra increased to 1500mg BID (from 1,000mg BID) Decadron also increased to 4mg q8h (from 2mg BID) -- focal seizures improved, then resolved during admission -- discharge on: Keppra 1,500mg BID, then ff up with Neuro via Telemedicine on 10/14/19 Decadron 4mg TID x 1 week, then 4mg BID, then further dosing per Dr. Carmen Kay on ff up within 1-2 weeks s/p Mechanical Fall -- happened after standing up after using the toilet 10/09/19 no loss of consciousness -- repeat CT head: no acute injury -- denies any other pain -- PT/OT eval: 25/12 care or Rehab- patient prefers to come home, very supportive discussed risks of not undergoing inpatient rehab or home PT/OT including injuries, falls, and she is understanding and accepting advised to always ambulate carefully, always use the walker, and continue PT/OT exercises at home Mild Hypokalemia -- K 3.4 -- K 20meq daily x 1 week repeat on ff up with PCP and monitor regularly -- also on K phos and Mg supplement Breast cancer. Continue home medications. Hypothyroidism. Continue Synthroid. History of complete heart block status post pacemaker. no issues Disposition d/c home ff up with PCP Dr. Katlin Kay next week 10/16/19 ff up with Neuro via Telemedicine 10/14/19 ff up with Oncologist Dr. Carmen Kay in 1-2 weeks Total Time Total Time Spent Total Time Spent (In Minutes): 65 minutes Discharge Plan Discharge Items Patient Disposition: Home - Self-Care Reason For Visit: SEIZURE Discharge Diagnosis: FOCAL SEIZURE Activity: Resume your previous activity Activity Comment: RESUME ACTIVITY GRADUALLY TOLERATED, ALWAYS AMBULATE CAREFULLY W/ WALKER Lifting: Wait until after follow-up appointment Exercise/Sports: Wait until after follow-up appointment Driving/Machine Use: NO DRIVING UNTIL RE-EVALUATED AND ALLOWED BY PRIMARY CARE PHYSICIAN NEXT WEEK Non-emergency contact: Primary Care Provider and Neurologist Call non-emergency contact if: you have any medication questions, your symptoms worsen and you have a fever Follow-up/Referrals: Katlin Kay MD [Primary Care Provider] - 10/16/19 8:20 am Kj Dey MD [Physician] - Diet: Heart Healthy Addtl Attending Provider Instructions: PLEASE REVIEW YOUR NEW MEDICATION LIST AND FOLLOW INSTRUCTIONS CAREFULLY. MEDICATION CHANGES: KEPPRA INCREASED TO 1,500MG TWICE A DAY DECADRON INCREASED TO 4MG THREE TIMES A DAY X 1 WEEK, THEN 4MG TWICE A DAY, FURTHER INSTRUCTIONS C/O NEUROLOGIST (ALWAYS TAKE DECADRON WITH A FULL STOMACH) START POTASSIUM SUPPLEMENT ONCE A DAY X 1 WEEK START PROTONIX ONCE A DAY TO PREVENT STOMACH ULCER/GASTRITIS INCLUDE FOOD HIGH IN POTASSIUM CONTENT IN YOUR DAILY DIET INCLUDING BANANAS, TOMATOES, ORANGES, ETC. CALL YOUR PRIMARY CARE PHYSICIAN OR NEUROLOGIST IF WITH RECURRENCE OF LEG SHAKING. IF LEG SHAKING IS SEVERE, RETURN TO ER IMMEDIATELY OR CALL 911. FOLLOW UP WITH PRIMARY CARE PROVIDER NEXT WEEK OUTLINED ABOVE. NEUROLOGY PA KJ KUHN WILL FOLLOW UP WITH YOU BY CALLING YOU ON OCTOBER 14, 2019 AT 1:00PM [facility] OF DR. CARMEN KAY (ONCOLOGIST) WILL CALL YOU FOR FOLLOW UP WITHIN 1-2 WEEKS. Pending Studies at Discharge: No Stand-Alone Forms: My [facility] French Girls, Smoking Cessation Medications and DC Order Prescriptions: New levetiracetam [Keppra] 500 mg Tablet 1,500 mg PO BID Qty: 180 RF: 2 dexamethasone 4 mg Tablet 4 mg PO TID Qty: 60 RF: 2 potassium chloride [Klor-Con M10] 10 mEq tablet,ER particles/crystals 20 meq PO DAILY Qty: 14 RF: 0 pantoprazole [Protonix] 40 mg tablet,delayed release (DR/EC) 40 mg PO DAILY Qty: 30 RF: 0 Continued letrozole 2.5 mg tablet 2.5 mg PO DAILY RF: 0 Verzenio 150 mg tablet 150 mg PO BID RF: 0 Xgeva 120 mg/1.7 mL (70 mg/mL) solution 120 mg SQ MONTHLY RF: 0 levothyroxine 100 mcg Tablet 100 mcg PO QAM RF: 0 calcium carbonate-vitamin D3 [Calcium 500 With D] 500 mg(1,250mg) -400 unit Tablet 1 tab PO BID RF: 0 fluticasone propionate 50 mcg/actuation spray,suspension 1 sprays INTRANASAL DAILY RF: 0 K-Phos Original 500 mg tablet,soluble 1,000 mg PO DAILY RF: 0 Discontinued dexamethasone 2 mg tablet 2 mg PO BID RF: 0 levetiracetam 1,000 mg tablet 1,000 mg PO BID RF: 0 Discharge Orders: Discharge Order (Routine); Ordered 10/10/19 Ordered By: Shakir Sosa Admission Data Admit Date/Time: 10/08/19 06:27 Attending Provider: Shakir Sosa Admit Provider: Dave Camejo Primary Care Provider: Katlin Kay Other Providers: Dave Camejo ; Kj Kuhn ; Juventino Hill ; Kj Dye ; Temo Delgado ; Vickie Kay ; Erik Jones Other Interventions: Discharge Summary Assessment (RN) Last Done: 10/10/19 15:00
== END 2019-10-10 16:19 | disposition home or self-care (01) | DRG 100 ==
LOC: ED 04:27 → 2S 06:27 → SUATTDRO 06:27 → 2S 07:45

== ENCOUNTER 2020-10-06 09:23 | Inpatient (IN) ==
--- NOTE | 2020-10-06 10:28 | Emergency Department Note ---
Impression & Plan SOB (shortness of breath), Breast cancer, Pleural effusion on left ED Provider Note INFORMANT: Patient ED PROVIDER(S): Juventino Clements MD CHIEF COMPLAINT: SOB PLAN: Disposition: admitted Condition: Good Outpatient prescription management: none Referral: None MEDICAL DECISION MAKING: Patient presented because of shortness of breath. She was concerned about a recurrent effusion. She has had pleural effusions drained on both sides. Chest x-ray shows a large left pleural effusion. The patient's blood work was unremarkable except she does have mild hyponatremia. The patient will need further management in hospital. [facility] The patient was evaluated in the ER admitted for further management. Triage Nursing notes reviewed and agree them. Vital Signs: reviewed and remarkable for no significant abnormalities Differential diagnosis: Recurrent effusion, Reactive airway disease, pneumonia, pneumothorax, COPD, CHF, infections, cardiac ischemia, pulmonary embolism, musculoskeletal, gastrointestinal, as well as other pathologies. Diagnostics interpreted by me: ECG: Atrial sensed V-paced rhythm at 90. Prolonged AV conduction. No ST elevation or depression. Cardiac Monitoring: Cardiac monitoring ordered by me: The patient was placed on continuous cardiac monitoring and observed. It revealed a paced rhythm at 98 BPM> Imaging studies: Chest x-ray reveals a large left-sided pleural effusion with white out of the left hemithorax. I refer you to the EMR for further details. HPI: The patient is a 70 year old female who presents to the Emergency Room with complaints of SOB. This started weeks ago and is worsening over the last 7 days or so. The patient also notes the following associated symptoms, slight cough. The patient has found no relieving factors. Current pain is rated as 0/10. Hx of thoracentesis and metastatic breast CA. Pt denies LOC, headache, fevers, chills, diaphoresis, visual changes, neck pain, chest pain, nausea, vomiting, abdominal pain, back pain, melena, hematochezia, urinary symptoms, numbness, weakness, lymphadenopathy, rash, or other complaints. ROS: See above HPI for pertinent positives & negatives. A total of 10 systems reviewed and were otherwise negative. PAST MEDICAL HISTORY:See Below , breast CA PAST SURGICAL HISTORY:See Below,pacer FAMILY HISTORY:See Below SOCIAL HISTORY:See Below, retired HOME MEDICATIONS:See Below ALLERGIES:See Below VITALS:See Below PHYSICAL EXAMINATION: GENERAL: Awake, alert, dyspneic-appearing, in no distress HENT: Normocephalic, atraumatic. Oropharynx unremarkable. EYES: Normal conjunctiva. Sclera non-icteric. NECK: Inspection normal. Non-tender. Supple. No nuchal rigidity. FROM. No masses. RESPIRATORY: Diminished on the left. No wheezes. No rales. Increased respiratory effort. CARDIAC: Normal rate. Normal rhythm. No murmurs. No rubs. Extremities warm and well perfused. Pulses equal. No JVD. GI: Soft, non-distended. No tenderness to palpation. No rebound or guarding. No masses. RECTAL: Deferred. MUSCULOSKELETAL: Atraumatic. Chest examination reveals no tenderness. The back is symmetrical on inspection without obvious abnormality. There is no CVA tenderness to palpation. No joint edema. LOWER EXTREMITIES: Calves are equal size bilaterally and non-tender. No edema. No discoloration. NEURO: Normal sensorium. No sensory or motor deficits noted. SKIN: No rash or jaundice noted. Juventino Clements MD Past Med/Surg History Medical History (Updated 10/06/20 @ 18:51 by Juventino Clements MD) Brain edema Breast cancer "s/p left mastectomy and chemotherapy" Complex partial status epilepticus Focal seizures GERD (gastroesophageal reflux disease) H/O radioactive iodine thyroid ablation Hypothyroidism Pacemaker Since 2014 Pleural effusion Pneumothorax Second degree heart block Surgical History H/O left mastectomy "10/16/11 with sentinel lymph node bx" History of esophagogastroduodenoscopy (EGD) History of hysteroscopy S/P cholecystectomy Family History Mother , age 87 bowel blockage and heart diease No problems noted. Father , age 81 unknown type of cancer No problems noted. Brother No problems noted. Brother No problems noted. Sister No problems noted. Sister Cancer skin cancer Daughter No problems noted. Daughter No problems noted. 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 Feels Safe at Home: Yes Childhood Exposure to Second-Hand Smoke: Yes caffeine: Yes (3 cups per day green tea 3 times per week) during the past year weight has: decreased > 10 lbs Dental Care, Regularly: Yes Physical Activity Frequency: Daily Physical Activity Frequency Comment: daily walks Seatbelt Use: always Sunscreen Use: Yes Assistive Devices: Glasses and Walker Allergies Allergies Allergy/AdvReac Type Severity Reaction Status Date / Time No Known Allergies Allergy Verified 10/06/20 12:18 Home Meds Home Medications Medication Instructions Recorded Confirmed calcium carbonate-vitamin D3 1 tab PO BID 07/10/19 10/06/20 [Calcium 500 With D] levothyroxine 100 mcg PO QAM 07/10/19 10/06/20 denosumab 120 mg/1.7 mL (70 mg/mL) 120 mg SQ MONTHLY ml 07/25/19 10/06/20 subcutaneous solution fluticasone propionate 50 1 sprays INTRANASAL QAM ml 08/12/19 10/06/20 mcg/actuation nasal spray,suspension lacosamide 100 mg tablet 200 mg PO BID 10/23/19 10/06/20 levetiracetam 1,000 mg tablet 1,000 mg PO BID 10/23/19 10/06/20 levetiracetam 750 mg tablet 750 mg PO BID tab 10/23/19 10/06/20 potassium phosphate, monobasic 500 500 mg PO BID tab 01/14/20 10/06/20 mg soluble tablet Results & Data (ED) Vital Signs Vital Signs - 24 hr 10/06/20 09:30 10/06/20 10:35 Temperature 37.0 C Temperature Source Skin Pulse Rate 60 Pulse Rhythm Regular Pulse Strength Normal Respiratory Rate 24 Respiratory Effort / Characteristics Non-Labored Respiratory Depth Normal Respiratory Pattern Regular Blood Pressure 149/91 H Blood Pressure Mean 110 Pulse Oximetry 100 96 Oxygen Delivery Method Room Air Room Air Sepsis Recent Fever Within 48 Hours No Sepsis New/Unexplained Change in Mental Status N/A Sepsis Action Taken by Nursing No Action Required Laboratory Data Result diagrams: 10/06/20 10:30 10/06/20 10:30 Lab Results 10/06/20 10/06/20 10/06/20 Range/Units 10:30 10:30 10:30 WBC 3.95 L (4.8-10.8) K/uL RBC 3.95 L (4.2-5.4) M/uL Hgb 12.4 (12.0-16.0) g/dL Hct 35.4 L (37-47) % MCV 89.6 (80-100) fL MCH 31.4 (25-34) pg MCHC 35.0 (32-36) g/dL RDW Std Deviation 43.5 (36.4-46.3) fL RDW Coeff of Mayuri 13.3 (11.5-14.5) % Plt Count 374 (130-400) K/uL MPV 8.6 (7.4-10.4) fL Immature Gran % (Auto) 0.3 % Neut % (Auto) 71.1 % Lymph % (Auto) 13.4 % [place] % (Auto) 12.7 % Eos % (Auto) 1.5 % Baso % (Auto) 1.0 % Neut # (Auto) 2.81 (1.4-6.5) K/uL Lymph # (Auto) 0.53 L (1.2-3.4) K/uL [place] # (Auto) 0.50 (0.11-0.59) K/uL Eos # (Auto) 0.06 (0-0.5) K/uL Baso # (Auto) 0.04 (0-0.2) K/uL Immature Gran # (Auto) 0.01 (0.00-0.02) K/uL PT (9.0-12.0) Seconds INR (0.9-1.1) Sodium 129 L (136-145) mmol/L Potassium 3.3 L (3.5-5.1) mmol/L Chloride 93 L (98-107) mmol/L Carbon Dioxide 27 (21-32) mmol/L Anion Gap 9.0 (3-11) BUN 7 (7-18) mg/dl Creatinine 0.51 L (0.6-1.2) mg/dl Est Cr Clr Drug Dosing 87.3 ml/min Est GFR ( Amer) 114.5 Est GFR (Non-Af Amer) 98.8 BUN/Creatinine Ratio 13.8 (10-20) Glucose 103 H (70-99) mg/dl Osmolality (280-300) mOsm/kg Calcium 9.4 (8.5-10.1) mg/dl Total Bilirubin 0.3 (0.2-1) mg/dl AST 27 (15-37) U/L ALT 19 (12-78) U/L Alkaline Phosphatase 92 (45-117) U/L Troponin I < 0.015 (0-0.045) ng/ml NT-Pro-B Natriuret Pep 264 (0-900) pg/ml Total Protein 7.6 (6.4-8.2) gm/dl Albumin 3.2 L (3.4-5.0) gm/dl Globulin 4.4 H (2.5-4.0) gm/dl Albumin/Globulin Ratio 0.7 L (0.9-2) COVID-19 Eval Order CovFluRsv at [facility] SARS-CoV-2 (PCR) (Negative) Influenza Type A (PCR) (Neg) Influenza Type B (PCR) (Neg) RSV (RT-PCR) (Neg) 10/06/20 10/06/20 10/06/20 Range/Units 10:30 10:30 10:30 WBC (4.8-10.8) K/uL RBC (4.2-5.4) M/uL Hgb (12.0-16.0) g/dL Hct (37-47) % MCV (80-100) fL MCH (25-34) pg MCHC (32-36) g/dL RDW Std Deviation (36.4-46.3) fL RDW Coeff of Mayuri (11.5-14.5) % Plt Count (130-400) K/uL MPV (7.4-10.4) fL Immature Gran % (Auto) % Neut % (Auto) % Lymph % (Auto) % [place] % (Auto) % Eos % (Auto) % Baso % (Auto) % Neut # (Auto) (1.4-6.5) K/uL Lymph # (Auto) (1.2-3.4) K/uL [place] # (Auto) (0.11-0.59) K/uL Eos # (Auto) (0-0.5) K/uL Baso # (Auto) (0-0.2) K/uL Immature Gran # (Auto) (0.00-0.02) K/uL PT 10.6 (9.0-12.0) Seconds INR 1.0 (0.9-1.1) Sodium (136-145) mmol/L Potassium (3.5-5.1) mmol/L Chloride (98-107) mmol/L Carbon Dioxide (21-32) mmol/L Anion Gap (3-11) BUN (7-18) mg/dl Creatinine (0.6-1.2) mg/dl Est Cr Clr Drug Dosing ml/min Est GFR ( Amer) Est GFR (Non-Af Amer) BUN/Creatinine Ratio (10-20) Glucose (70-99) mg/dl Osmolality 265 L (280-300) mOsm/kg Calcium (8.5-10.1) mg/dl Total Bilirubin (0.2-1) mg/dl AST (15-37) U/L ALT (12-78) U/L Alkaline Phosphatase (45-117) U/L Troponin I (0-0.045) ng/ml NT-Pro-B Natriuret Pep (0-900) pg/ml Total Protein (6.4-8.2) gm/dl Albumin (3.4-5.0) gm/dl Globulin (2.5-4.0) gm/dl Albumin/Globulin Ratio (0.9-2) COVID-19 Eval Order SARS-CoV-2 (PCR) NEGATIVE (Negative) Influenza Type A (PCR) Negative (Neg) Influenza Type B (PCR) Negative (Neg) RSV (RT-PCR) Negative (Neg) Administered Medications Discontinued Medications Ioversol (Optiray 350 500ml) 120 ml IV ONCE ONE Stop: 10/06/20 13:57 Last Admin: 10/06/20 13:57 Dose: 120 ml Documented by: [id number] Labetalol HCl (Labetalol Hcl Iv 5 Mg/Ml 20ml) 5 mg IV NOW STA Stop: 10/06/20 13:45 Last Admin: 10/06/20 14:11 Dose: 5 mg Documented by: [id number] Cosigned by: [id number] Potassium Chloride (Potassium Chloride Crtab 20 Meq Tabcr) 40 meq PO NOW STA Stop: 10/06/20 13:09 Last Admin: 10/06/20 13:34 Dose: 40 meq Documented by: [id number] Imaging Data Radiologist's Impression: Chest X-Ray 10/06/20 09:40 SINGLE VIEW CHEST CLINICAL HISTORY: Dyspnea. FINDINGS: 2 AP, portable, upright chest radiographs are compared to study dated 02/27/2016. Correlation is made with PET/CT dated 11/03/2019. A 2-lead cardiac pacemaker is unchanged in position. There is complete opacification of the left hemithorax, likely representing atelectasis of the left lung and pleural effusion. There is associated leftward shift of the mediastinum. The cardiomediastinal silhouette is obscured. There is trace pleural effusion at the right lung base with right basilar atelectasis. No pneumothorax is seen. The skeletal structures are osteopenic. There are healed bilateral rib fractures. IMPRESSION: 1. There is complete opacification of the left hemithorax. This likely represents atelectasis of the left lung and pleural effusion, and this has significantly progressed as compared to the 11/03/2019 PET examination. 2. There is a small right pleural effusion with right basilar atelectasis ACT 112: Negative or not required by law. Electronically signed by: Mitchel Keith M.D. 10/06/2020 10:56 AM Discharge Plan Visit Data Chief Complaint: Shortness of Breath/Dyspnea Stated Complaint: SOB ED Provider: Juventino Clements Discharge Problem: SOB (shortness of breath), Breast cancer, Pleural effusion on left Patient Disposition: Admitted As Inpatient Discharge Instructions Interventions: ED Discharge Assessment Last Done: 10/06/20 14:49
[2020-10-06 10:43] LABS: Basophils # (auto) 0.04 K/uL (0-0.2); Eosinophils # (auto) 0.06 K/uL (0-0.5); Eosinophils % (auto) 1.5 %; Hematocrit (blood only) 35.4 % (37-47); Hemoglobin 12.4 g/dL (12.0-16.0); Immature Granulocytes # (auto) 0.01 K/uL (0.00-0.02); Immature Granulocytes % (auto) 0.3 %; Lymphocytes # (auto) 0.53 K/uL (1.2-3.4); Lymphocytes % (auto) 13.4 %; Mean Corpuscular Hemoglobin 31.4 pg (25-34); Mean Corpuscular Volume 89.6 fL (80-100); Mean Platelet Volume 8.6 fL (7.4-10.4); Monocytes % (auto) 12.7 %; Neutrophils # (auto) 2.81 K/uL (1.4-6.5); Neutrophils % (auto) 71.1 %; Platelet Count 374 K/uL (130-400); RDW Coefficient of Variation 13.3 % (11.5-14.5); RDW Standard Deviation 43.5 fL (36.4-46.3); Red Blood Count 3.95 M/uL (4.2-5.4); White Blood Count 3.95 K/uL (4.8-10.8)
--- NOTE | 2020-10-06 10:57 | XRay Report ---
SINGLE VIEW CHEST CLINICAL HISTORY: Dyspnea. FINDINGS: 2 AP, portable, upright chest radiographs are compared to study dated 02/27/2016. Correlatio n is made with PET/CT dated 11/03/2019. A 2-lead cardiac pacemaker is unchanged in position. There is c omplete opacification of the left hemithorax, likely representing atelectasis of the left lung and pl eural effusion. There is associated leftward shift of the mediastinum. The cardiomediastinal silhouet te is obscured. There is trace pleural effusion at the right lung base with right basilar atelectasis . No pneumothorax is seen. The skeletal structures are osteopenic. There are healed bilateral rib fra ctures. IMPRESSION: 1. There is complete opacification of the left hemithorax. This likely represents atelectasis of the left lung and pleural effusion, and this has significantly progressed as compared to the 11/03/2019 PET examination. 2. There is a small right pleural effusion with right basilar atelectasis ACT 112: Negative or not required by law. Electronically signed by: Mitchel Keiht M.D. 10/06/2020 10:56 AM
[2020-10-06 11:00] LABS: Alanine Aminotransferase 19 U/L (12-78); Albumin Level 3.2 gm/dl (3.4-5.0); Aspartate Aminotransferase 27 U/L (15-37); BUN Creatinine Ratio 13.8 (10-20); Blood Urea Nitrogen 7 mg/dl (7-18); Calcium 9.4 mg/dl (8.5-10.1); Carbon Dioxide 27 mmol/L (21-32); Chloride 93 mmol/L (98-107); Creatinine Clr Calc Pharmacy 87.3 ml/min; Est GFR (African American) 114.5; Est GFR (Non-African American) 98.8; Glucose 103 mg/dl (70-99); Potassium 3.3 mmol/L (3.5-5.1); Sodium 129 mmol/L (136-145)
[2020-10-06 11:04] LABS: Albumin Globulin Ratio 0.7 (0.9-2); Alkaline Phosphatase 92 U/L (45-117); Bilirubin,Total 0.3 mg/dl (0.2-1); Globulin 4.4 gm/dl (2.5-4.0); NT Pro B Type Natriuretic Pept 264 pg/ml (0-900); Total Protein 7.6 gm/dl (6.4-8.2); Troponin I < 0.015 ng/ml (0-0.045)
--- NOTE | 2020-10-06 11:37 | Electrocardiogram Report ---
Test Reason : Blood Pressure : / mmHG Vent. Rate : 090 BPM Atrial Rate : 090 BPM P-R Int : 218 ms QRS Dur : 136 ms QT Int : 404 ms P-R-T Axes : 069 -56 104 degrees QTc Int : 494 ms Atrial-sensed ventricular-paced rhythm with prolonged AV conduction Abnormal ECG When compared with ECG of 08-OCT-2019 04:37, Vent. rate has increased BY 23 BPM Confirmed by Niko Sierra ([id number]) on 10/06/2020 11:37:19 AM Referred By: Confirmed By:Niko Sierra
[2020-10-06 12:00] LABS: Influenza A virus by PCR Negative (Neg); Influenza B virus by PCR Negative (Neg); RSV by PCR Negative (Neg); SARS CoV2 RNA(COVID-19) InHosp NEGATIVE (Negative)
--- NOTE | 2020-10-06 12:28 | History & Physical Report ---
Date of Service October 06, 2020 Assessment & Plan (1) SOB (shortness of breath): (2) Malignant pleural effusion: (3) Breast cancer: This is a 70-year-old female who has significant past medical history for left breast CA initially diagnosed in 2011 now with recurrence in 2019 bony metastasis and brain mets. She initially underwent adjuvant chemotherapy as well as 5 years of hormonal treatment with tamoxifen. In 07/2019 she had recurrent disease of right parietal region requiring SBRT. On 02/01/2020 she also had a recurrence with a malignant left pleural effusion requiring Pleurx catheter placement. This was removed on 05/2020. In 07/2020 she was found to have increased metastatic lesion of right frontoparietal region requiring neurosurgical intervention at [facility]. She follows with Dr. Kay hematology oncology. She is currently on treatment regimen of Xeloda and Xgeva. 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 She was seen and evaluated in clinic today and complained of increasing shortness of breath. On 09/02/2020 at [facility] she underwent right lung thoracentesis which was positive for malignant effusion as well. Due to concern for recurrence of effusion she was referred to ED. L Breast ca with mets to bone, brain and pleural with recurrent pleural effusions. Also pt with known mets to L lateral chest wall subcutaneous tissues. Most recent effusion on R s/p thoracentesis on 09/[address] Muhammad - graciela garcia. admit to PCU consult Pulm Dr Harvey for thoracentesis, pleurex placement pt will need close follow up with [facility] @ [facility] Dr. Muhammad obtain CTA chest given LUE r/o PE supplemental O2 as needed Hypokalemia replace with 40meq KCL Chronic Hyponatremia Na 129, at baseline 129-131 obtain serum/urine osm, na likely in setting of brain mets/SIADH consider FR Seizure d/o in setting of brain mets s/p neurosurgical intervention 07/25 to brain mets continue vimpat/keppra, no recent seizure follows [facility] Neurology (4) Edema of left upper extremity: obtain LUE doppler (5) Hypothyroidism: continue levothyroxine (6) Pacemaker: hx of CHB s/p ppm ecg paced rhythm recent interrogation 07/25 DVT ppx: SCD/TEDS for now, hold chemical prophylaxis in setting of likely thoracentesis Dispo: PCU PCP: Tawanna Kay FULL CODE Pt was seen and evaluated in collaboration with Dr. Estevez, please see addendum History of Present Illness Chief Complaint: SOB; referred by heme/onc. Primary Care Provider: Katlin Kay MD This is a 70-year-old female who has significant past medical history for left breast CA initially diagnosed in 2011 now with recurrence in 2019 bony metastasis and brain mets. She initially underwent adjuvant chemotherapy as well as 5 years of hormonal treatment with tamoxifen. In 07/2019 she had recurrent disease of right parietal region requiring SBRT. On 02/01/2020 she also had a recurrence with a malignant left pleural effusion requiring Pleurx catheter placement. This was removed on 05/2020. In 07/2020 she was found to have increased metastatic lesion of right frontoparietal region requiring neurosurgical intervention at [facility]. She follows with Dr. Kay hematology oncology. She is currently on treatment regimen of Xeloda and Xgeva. 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 She was seen and evaluated in clinic today and complained of increasing shortness of breath. On 09/02/2020 at [facility] she underwent right lung thoracentesis which was positive for malignant effusion as well. Due to concern for recurrence of effusion she was referred to ED. She also has new onset left upper extremity swelling. Patient complains of increasing shortness of breath over the past week. Because of prior pleural effusion she admits to chronic shortness of breath but this has significantly worsened. She complains of shortness of breath with exertion as well as conversation. At rest she has been more shortness of breath. She also complains of a moist cough and sinus drainage. She denies fever, chills, sweats, lightheadedness, dizziness, chest pain, palpitations, nausea, vomiting, abdominal pain, dysuria, increased urgency or frequency with urination, melena or hematochezia. She overall has decreased appetite and admits to approximately 5 pound weight loss. She lives at home with her . Her primary residential advisor is Dr. Muhammad of [place]. In ED patient made hemodynamically stable saturating 95% on room air. Lab work notable for hyponatremia 129, K3.3, BUN 7, creatinine 0.51, glucose 103. Her COVID-19 influenza swab was negative. Chest x-ray reveals complete opacification of left thorax. Allergies Allergy/AdvReac Type Severity Reaction Status Date / Time No Known Allergies Allergy Verified 10/06/20 12:18 Home Medications Medication Instructions Recorded Confirmed Type calcium carbonate-vitamin D3 1 tab PO BID 07/10/19 10/06/20 History [Calcium 500 With D] levothyroxine 100 mcg PO QAM 07/10/19 10/06/20 History denosumab 120 mg/1.7 mL (70 mg/mL) 120 mg SQ MONTHLY ml 07/25/19 10/06/20 History subcutaneous solution fluticasone propionate 50 1 sprays INTRANASAL QAM ml 08/12/19 10/06/20 History mcg/actuation nasal spray,suspension lacosamide 100 mg tablet 200 mg PO BID 10/23/19 10/06/20 History levetiracetam 1,000 mg tablet 1,000 mg PO BID 10/23/19 10/06/20 History levetiracetam 750 mg tablet 750 mg PO BID tab 10/23/19 10/06/20 History potassium phosphate, monobasic 500 500 mg PO BID tab 01/14/20 10/06/20 History mg soluble tablet Past Med/Surg History Medical History (Updated 10/08/20 @ 09:49 by Cyndi Gann MD, PhD) Brain edema Breast cancer "s/p left mastectomy and chemotherapy" Complex partial status epilepticus Focal seizures GERD (gastroesophageal reflux disease) H/O radioactive iodine thyroid ablation Hypothyroidism Pacemaker Since 2014 Pleural effusion Pneumothorax Second degree heart block Surgical History H/O left mastectomy "10/16/11 with sentinel lymph node bx" History of esophagogastroduodenoscopy (EGD) History of hysteroscopy S/P cholecystectomy Family History Mother , age 87 bowel blockage and heart diease No problems noted. Father , age 81 unknown type of cancer No problems noted. Brother No problems noted. Brother No problems noted. Sister No problems noted. Sister Cancer skin cancer Daughter No problems noted. Daughter No problems noted. 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 Feels Safe at Home: Yes Childhood Exposure to Second-Hand Smoke: Yes caffeine: Yes (3 cups per day green tea 3 times per week) during the past year weight has: decreased > 10 lbs Dental Care, Regularly: Yes Physical Activity Frequency: Daily Physical Activity Frequency Comment: daily walks Seatbelt Use: always Sunscreen Use: Yes Assistive Devices: None Review of Systems Review of Systems: All systems reviewed & are unremarkable except as noted in HPI & below Physical Exam Physical Exam: Constitutional: WD/WN, F, dyspneic with conversation, vitals as above, NAD, sitting up in bed, pleasant Head: Normocephalic, Atraumatic Eyes: PERRL, conjunctivae normal, anicteric sclerae ENMT: external ear and nose normal, oropharynx normal Neck: trachea midline, no thyromegaly normal visual inspection Respiratory: normal respiratory effort, lungs clear to auscultation, no wheeze, rales, rhonchi. Normal insp/exp effort, no accessory muscle use Cardiovascular: tachycardic rate or reg rhythm, no murmur, LUE edema Vessels: no JVD or carotid bruit Chest: normal inspection of chest Abdomen: normal bowel sounds, soft, nontender, no hepatosplenomegaly Musculoskeletal: no cyanosis or clubbing, extremities motor strength 5/5 Skin: no rashes, warm and dry normal turgor Neurologic: PERRL, EOMI, accommodation nl, no face palsy, no dysarthria CN's II-XI intact bilaterally and moves all extremities Psychiatric: A+Ox3, euthymic affect Lymphatic: no cervical or axillary lymphadenopathy : deferred Results & Data Results & Data ([facility]) Vital Signs (Past 12 Hours) Vital Signs Temp Pulse Resp BP Pulse Ox 10/06/20 10:35 96 10/06/20 09:30 37.0 C 60 24 149/91 H 100 Diagnostic Findings Chest X-Ray 10/06/20 09:40 SINGLE VIEW CHEST CLINICAL HISTORY: Dyspnea. FINDINGS: 2 AP, portable, upright chest radiographs are compared to study dated 02/27/2016. Correlation is made with PET/CT dated 11/03/2019. A 2-lead cardiac pacemaker is unchanged in position. There is complete opacification of the left hemithorax, likely representing atelectasis of the left lung and pleural effusion. There is associated leftward shift of the mediastinum. The cardiomediastinal silhouette is obscured. There is trace pleural effusion at the right lung base with right basilar atelectasis. No pneumothorax is seen. The skeletal structures are osteopenic. There are healed bilateral rib fractures. IMPRESSION: 1. There is complete opacification of the left hemithorax. This likely represents atelectasis of the left lung and pleural effusion, and this has significantly progressed as compared to the 11/03/2019 PET examination. 2. There is a small right pleural effusion with right basilar atelectasis ACT 112: Negative or not required by law. Electronically signed by: Mitchel Keith M.D. 10/06/2020 10:56 AM ECG Rate (beats per minute): 90 COVID-19 Results Results COVID-19 Adm Lab Results: RBC 3.89 M/uL (4.2-5.4) L 10/08/20 WBC 6.64 K/uL (4.8-10.8) 10/08/20 Hgb 12.2 g/dL (12.0-16.0) 10/08/20 Hct 35.1 % (37-47) L 10/08/20 Plt Count 414 K/uL (130-400) H 10/08/20 Neutrophils (%) (Auto) 69.3 % 10/07/20 Lymphocytes (%) (Auto) 9.6 % 10/07/20 Monocytes # (Auto) 0.85 K/uL (0.11-0.59) H 10/07/20 Eosinophils # (Auto) 0.07 K/uL (0-0.5) 10/07/20 Immature Granulocyte % (Auto) 0.2 % 10/07/20 Neutrophils # (Auto) 3.18 K/uL (1.4-6.5) 10/07/20 Lymphocytes # (Auto) 0.44 K/uL (1.2-3.4) L 10/07/20 Monocytes # (Auto) 0.85 K/uL (0.11-0.59) H 10/07/20 Eosinophils # (Auto) 0.07 K/uL (0-0.5) 10/07/20 Basophils # (Auto) 0.04 K/uL (0-0.2) 10/07/20 Immature Granulocyte # (Auto) 0.01 K/uL (0.00-0.02) 10/07/20 Na 132 mmol/L (136-145) L 10/08/20 K 3.4 mmol/L (3.5-5.1) L 10/08/20 Cl 99 mmol/L (98-107) 10/08/20 CO2 25 mmol/L (21-32) 10/08/20 Anion Gap 8.0 (3-11) 10/08/20 BUN 9 mg/dl (7-18) 10/08/20 Creatinine 0.53 mg/dl (0.6-1.2) L 10/08/20 BUN/Creatinine Ratio 16.3 (10-20) 10/08/20 Glucose Level 103 mg/dl (70-99) H 10/08/20 Ca 8.8 mg/dl (8.5-10.1) 10/08/20 Phosphorus Level 2.8 mg/dl (2.5-4.9) 10/07/20 Total Bilirubin 0.3 mg/dl (0.2-1) 10/06/20 AST/SGOT 27 U/L (15-37) 10/06/20 ALT/SGPT 19 U/L (12-78) 10/06/20 Alkaline Phosphatase 92 U/L (45-117) 10/06/20 Total Protein 7.6 gm/dl (6.4-8.2) 10/06/20 Albumin 3.2 gm/dl (3.4-5.0) L 10/06/20 Globulin 4.4 gm/dl (2.5-4.0) H 10/06/20 Albumin/Globulin Ratio 0.7 (0.9-2) L 10/06/20 Troponin I < 0.015 ng/ml (0-0.045) 10/06/20 TM-Wrl-O-Type Natriuretic Pep 264 pg/ml (0-900) 10/06/20 INR 1.0 (0.9-1.1) 10/06/20 COVID-19 PCR NEGATIVE (Negative) 10/06/20 Influenza Virus Type A (PCR) Negative (Neg) 10/06/20 Influenza Virus Type B (PCR) Negative (Neg) 10/06/20 Chest X-Ray 10/07/20 Code Status & VTE Plan Code Status Full Code VTE Prophylaxis Plan VTE Prophylaxis will be ordered: Yes Supervising Physician Co-Signing Physician Notes 70 yo unfortunate female with hx of metastatic breast ca -mets to brain , lungs , malignant pleural effusion -sent from Heme Onc office as pt was experiencing worsening of SOB Imaging of chest in ED shows -progression of pleural effusion with dense /complete etelactasis of left lung case D/w Pulm and heme onc : pt may benefit with Bronch to assess for extrinsic tumor compression causing L lung atelectasis over all prognosis remains very poor Palliative care consulted Hyponatremia : acute on chronic possible SIADH? metastatic CA ordered for fluid restriction follow BMP Nephrology consulted Jacquelin Estevez MD
[2020-10-06 13:05] LABS: Prothrombin Time 10.6 Seconds (9.0-12.0)
[2020-10-06] MEDS ORDERED: POTASSIUM CHLORIDE CRTAB 20 MEQ TABCR PO STA (13:08)
[2020-10-06] MEDS ORDERED: LABETALOL HCL IV 5 MG/ML 20ML IV STA (13:44)
[2020-10-06] MEDS ORDERED: OPTIRAY 350 500ml IV ONE (13:56)
--- NOTE | 2020-10-06 14:20 | CT Scan Report ---
CT ANGIOGRAPHY OF THE CHEST, PULMONARY EMBOLUS PROTOCOL CLINICAL HISTORY: Shortness of breath. Cough. Metastatic breast cancer. COMPARISON STUDY: Chest radiograph February 29, 2016 and October 06, 2020 at 10:36 AM. PET/CT November 02. TECHNIQUE: Following IV administration of 120 mL of Optiray, helical axial images of the chest were o btained utilizing the pulmonary embolus protocol. Maximal intensity projections and sagittal and cor onal reformats were viewed on an independent 3D workstation. IV contrast was administered without co mplication. Automated exposure control was utilized for the study. A dose lowering technique was ut ilized adhering to the principles of ALARA. CT DOSE: 331.51 mGy.cm FINDINGS: No pulmonary emboli are identified. A dual-lead left subclavian pacemaker is in place. Not e is made of complete atelectasis of the left lung, as shown on prior radiograph. This obscures the l eft upper lobe is a calcified mass-like lesion shown on PET/CT of November 03, 2019. A moderate left pleur al effusion is noted with pleural thickening. A large right pleural effusion is present. There is no pneumothorax. Mild ground glass opacities within the right lung are noted. There is no thoracic aorti c dissection. Numerous skeletal metastases are noted. These have progressed since PET/CT of November 02 020. There is anasarca. Patient is status post left mastectomy. IMPRESSION: 1. No pulmonary emboli identified. 2. Complete left lung atelectasis, significantly increased since PET/CT of November 03, 2019. Moderate lef t pleural effusion with pleural thickening which suggests a malignant effusion. 3. Large right pleural effusion. 4. Progression of multiple skeletal metastases since prior PET/CT. 5. Anasarca. Possible mild pulmonary edema within the right lung. ACT 112: Negative or not required by law. Electronically signed by: Kg Beth M.D. 10/06/2020 2:19 PM
--- NOTE | 2020-10-06 15:06 | Pulmonary Consultation ---
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 Her chest x-ray now demonstrates complete atelectasis of the left lung whereas prior imaging reports from [facility] indicate only partial atelectasis including the left upper lobe and portions of the left lower lobe. I suspect that the previously noted endobronchial abnormality described on bronchoscopy from [facility] 03/2020 has progressed and has now resulted in complete lung atelectasis. I performed a limited thoracic ultrasound in the emergency room which did not demonstrate a large amount of left-sided pleural fluid. However significant mediastinal shift was noted with cardiac structures being shifted into the pleural space. This was confirmed on the CT scan. She does have a right-sided effusion which is actually larger than the left however she did not achieve much in the way of symptomatic improvement when that was drained. I suspect that her shortness of breath is related to lung atelectasis with shunt physiology. Recommendations: 1. Left lung atelectasis: Suspect an endobronchial lesion. The small pleural effusion noted on the left is secondary to atelectasis of the lung and drainage of that would not likely offer her any clinical benefit as the lung is unable to expand. I am not sure that we have good treatment options for her lung atelectasis at this point in time. I offered her bronchoscopy to better assess the airways. We could consider focal radiation therapy however given the fact that portions of that long of been down for over 6 months, it is unlikely that we will be able to reaerated or make any significant improvement. Given the description of extrinsic compression, and the distal nature of the airways, I do not think she is a candidate for stenting or endobronchial therapy and regardless, those interventions are not available here and she would need to be transferred to [facility]. After careful consideration, the patient would like to hold off on bronchoscopy until she is able to speak with her oncologist. Given the fact that her CT scan currently shows progression of her skeletal metastases, palliative care consultation would be appropriate. 2. Right pleural effusion: I also offered the patient the opportunity to undergo Pleurx catheter placement on the right or repeat thoracentesis. I am not optimistic this will significantly improve her symptoms that she did not feel better after the thoracentesis on the last round. Again she would like to hold off on additional procedures until she has been able to visit with her medical oncologist. 3. Continue supplemental oxygen titrated to keep saturations at or above 88%. 4. The patient asked about whether or not she needs to be admitted to the hospital. If she would like to decline bronchoscopy or thoracentesis, I think it is reasonable to dismiss her and she can follow-up with her supervisor tumblers in [place]. If the patient elects to undergo procedures, I would be happy to schedule her for repeat bronchoscopy as well as a thoracentesis depending on her preference. The above recommendations and plan were extensively discussed with the patient as well as with the admitting service. At this point in time pulmonary will standby until the patient has an opportunity to discuss with her medical team and decide which interventions if any are appropriate. Feel free to contact us if we can be of additional assistance. History of Present Illness History of Present Illness Asked by hospitalist to evaluate this patient with an abnormal chest radiograph and shortness of breath. History is obtained from review the electronic medical record as well as discussion with the patient. The patient is a 70-year-old female with a history of metastatic breast cancer. She was diagnosed in October 2011 and unfortunately developed recurrent disease. In July 2019 she was noted to have a malignant left effusion as well as brain mets. She completed radiation therapy. She had a Pleurx catheter placed by the supervisor tumblers in [place] in January 2020. The catheter remained in place until May 2020 when it was removed due to decreasing effusion. The patient underwent bronchoscopy by the pulmonology group in [place] in March. She was found to have a partially obstructing left endobronchial lesion. This appeared to occlude the upper lobe as well as portions of the lower lobe. It does not appear that she received any radiation therapy at that time. Patient was seen back by the [place] supervisor tumblers about a month ago with a right pleural effusion which was sampled. She did not notice any significant improvement in her respiratory status after that effusion was sampled. Patient was reportedly seen in clinic with complaints of shortness of breath and referred to the emergency room for additional evaluation. Allergies Allergy/AdvReac Type Severity Reaction Status Date / Time No Known Allergies Allergy Verified 10/06/20 12:18 Home Medications Medication Instructions Recorded Confirmed Type calcium carbonate-vitamin D3 1 tab PO BID 07/10/19 10/06/20 History [Calcium 500 With D] levothyroxine 100 mcg PO QAM 07/10/19 10/06/20 History denosumab 120 mg/1.7 mL (70 mg/mL) 120 mg SQ MONTHLY ml 07/25/19 10/06/20 History subcutaneous solution fluticasone propionate 50 1 sprays INTRANASAL QAM ml 08/12/19 10/06/20 History mcg/actuation nasal spray,suspension lacosamide 100 mg tablet 200 mg PO BID 10/23/19 10/06/20 History levetiracetam 1,000 mg tablet 1,000 mg PO BID 10/23/19 10/06/20 History levetiracetam 750 mg tablet 750 mg PO BID tab 10/23/19 10/06/20 History potassium phosphate, monobasic 500 500 mg PO BID tab 01/14/20 10/06/20 History mg soluble tablet Patient History Medical History (Updated 10/06/20 @ 15:01 by Duane Harvey MD) Brain edema Breast cancer "s/p left mastectomy and chemotherapy" Complex partial status epilepticus Focal seizures GERD (gastroesophageal reflux disease) H/O radioactive iodine thyroid ablation Hypothyroidism Pacemaker Since 2014 Pleural effusion Pneumothorax Second degree heart block Surgical History H/O left mastectomy "10/16/11 with sentinel lymph node bx" History of esophagogastroduodenoscopy (EGD) History of hysteroscopy S/P cholecystectomy Family History Mother , age 87 bowel blockage and heart diease No problems noted. Father , age 81 unknown type of cancer No problems noted. Brother No problems noted. Brother No problems noted. Sister No problems noted. Sister Cancer skin cancer Daughter No problems noted. Daughter No problems noted. 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 I have no additions or deletions Physical Exam 2 Constitutional: + frail appearing Neck: trachea midline, no thyromegaly Respiratory: + labored breathing Decreased breath sounds at the bilateral lung bases, more prominent up on the left. No wheezing Cardiovascular: RRR, no murmur, no edema Gastrointestinal (Abdomen): normal bowel sounds, soft, nontender, no hepatosplenomegaly Musculoskeletal: Extremities: extremities normal to inspection Skin: no rashes, warm and dry Neurologic: Nonfocal exam Lymphatic: no cervical lymphadenopathy Results & Data Results & Data ([facility]) Vital Signs (Past 12 Hours) Vital Signs Temp Pulse Resp BP Pulse Ox 10/06/20 14:40 95 H 24 154/120 H 95 10/06/20 14:35 83 24 143/101 H 94 10/06/20 14:30 85 22 139/99 96 10/06/20 14:25 85 22 133/102 H 95 10/06/20 14:20 83 25 H 133/96 96 10/06/20 14:16 95 H 23 150/109 H 96 10/06/20 13:00 88 21 174/108 H 96 10/06/20 12:24 89 26 H 161/108 H 95 10/06/20 10:35 96 10/06/20 09:30 37.0 C 60 24 149/91 H 100 Laboratory Results 10/06/20 10:30 10/06/20 10:30 INR normal Diagnostic Findings CT imaging independently reviewed. CT ANGIOGRAPHY OF THE CHEST, PULMONARY EMBOLUS PROTOCOL CLINICAL HISTORY: Shortness of breath. Cough. Metastatic breast cancer. COMPARISON STUDY: Chest radiograph February 29, 2016 and October 06, 2020 at 10:36 AM. PET/CT November 03, 2019. TECHNIQUE: Following IV administration of 120 mL of Optiray, helical axial images of the chest were obtained utilizing the pulmonary embolus protocol. Maximal intensity projections and sagittal and coronal reformats were viewed on an independent 3D workstation. IV contrast was administered without complicatio n. Automated exposure control was utilized for the study. A dose lowering technique was utilized adhering to the principles of ALARA. CT DOSE: 331.51 mGy.cm FINDINGS: No pulmonary emboli are identified. A dual-lead left subclavian pacemaker is in place. Note is made of complete atelectasis of the left lung, as shown on prior radiograph. This obscures the left upper lobe is a calcified mass-like lesion shown on PET/CT of November 03, 2019. A moderate left pleural effusion is noted with pleural thickening. A large right pleural effusion is present. There is no pneumothorax. Mild ground glass opacities within the right lung are noted. There is no thoracic aortic dissection. Numerous skeletal metastases are noted. These have progressed since PET/CT of November 03, 2019. There is anasarca. Patient is status post left mastectomy. IMPRESSION: 1. No pulmonary emboli identified. 2. Complete left lung atelectasis, significantly increased since PET/CT of November 03, 2019. Moderate left pleural effusion with pleural thickening which suggests a malignant effusion. 3. Large right pleural effusion. 4. Progression of multiple skeletal metastases since prior PET/CT. 5. Anasarca. Possible mild pulmonary edema within the right lung. PG Care Time/CCT Total # of Minutes Spent Total Time Spent with Patient: Total time spent is greater than 50% in coordination of care (as documented) at patient's floor/unit and/or counseling patient: Coding Level of Care Code 22774 Inpt Consult Level 5 Diagnoses Malignant pleural effusion J91.0 Atelectasis of left lung J98.11 Hypoxemia R09.02 Time Spent (min) 65
--- NOTE | 2020-10-06 15:35 | Ultrasound Report ---
ULTRASOUND LEFT UPPER EXTREMITY VENOUS CLINICAL HISTORY: Left upper extremity swelling. COMPARISON STUDY: No priors.. TECHNIQUE: Real-time, grayscale, and color Doppler sonography of the deep veins of the left upper ext remity is performed. Compression and augmentation were utilized. FINDINGS: There is no sonographic evidence of deep venous thrombosis identified in the left upper ext remity. The left internal jugular, axillary, and brachial veins are patent and normally compressible. Normal venous waveforms and augmentation are seen within the left subclavian vein. The cephalic and basilic veins are clear. The visualized radial and ulnar veins are patent. IMPRESSION: There is no sonographic evidence of deep venous thrombosis identified in the left upper e xtremity. ACT 112: Negative or not required by law. Electronically signed by: Mitchel Keith M.D. 10/06/2020 3:33 PM
[2020-10-06] MEDS ORDERED: ALUMINUM/MAGNESIUM SUSP 30 ML UDC PO PRN (15:43)
[2020-10-06] MEDS ORDERED: ACETAMINOPHEN 325 MG TAB PO PRN (15:43)
[2020-10-06] MEDS ORDERED: MAGNESIUM HYDROXIDE SUSP 30 ML UDC PO PRN (15:43)
[2020-10-06] MEDS ORDERED: POLYETHYLENE (MIRALAX) 17 GM PACK PO PRN (15:43)
[2020-10-06] MEDS ORDERED: ONDANSETRON INJ 2 MG/ML 2 ML VIAL IV PRN (15:43)
[2020-10-06] MEDS ORDERED: Nursing to Pharmacy Communication SCH (18:45)
[2020-10-06] MEDS: levETIRAcetam 500 MG TAB PO SCH (19:48)
[2020-10-06] MEDS: LACOSAMIDE 50 MG TABLET PO SCH (19:48)
[2020-10-06] MEDS: levETIRAcetam 250 MG TAB PO SCH (19:48)
[2020-10-06 20:47] LABS: BUN Creatinine Ratio 12.6 (10-20); Calcium 8.6 mg/dl (8.5-10.1); Creatinine Clr Calc Pharmacy 76.8 ml/min; Est GFR (African American) 109.8; Est GFR (Non-African American) 94.7; Potassium 3.4 mmol/L (3.5-5.1)
[2020-10-06] MEDS: CALCIUM 600MG + VIT D 400 IU TAB PO SCH (20:57)
[2020-10-06] MEDS ORDERED: levETIRAcetam 500 MG TAB PO SCH (21:00)
[2020-10-06] MEDS ORDERED: LACOSAMIDE 50 MG TABLET PO SCH (21:00)
[2020-10-06] MEDS ORDERED: levETIRAcetam 250 MG TAB PO SCH (21:00)
[2020-10-06] MEDS ORDERED: POTASSIUM PHOSPHATE MONOBASIC 500 MG TAB PO SCH (21:00)
[2020-10-06] MEDS: ENOXAPARIN INJ 40 MG/0.4 ML SYR SQ SCH (23:25)
[2020-10-06] MEDS: POT PHOSPHATE MONOBASIC W/ SOD TAB PO SCH (23:26)
[2020-10-07] MEDS: LEVOTHYROXINE SODIUM 100 MCG TABLET PO SCH (05:14)
[2020-10-07 07:06] LABS: Basophils # (auto) 0.04 K/uL (0-0.2); Basophils % (auto) 0.9 %; Eosinophils # (auto) 0.07 K/uL (0-0.5); Eosinophils % (auto) 1.5 %; Hematocrit (blood only) 34.3 % (37-47); Hemoglobin 11.9 g/dL (12.0-16.0); Immature Granulocytes # (auto) 0.01 K/uL (0.00-0.02); Immature Granulocytes % (auto) 0.2 %; Lymphocytes # (auto) 0.44 K/uL (1.2-3.4); Lymphocytes % (auto) 9.6 %; Mean Corpuscular Hemoglobin 31.3 pg (25-34); Mean Corpuscular Hgb Conc 34.7 g/dL (32-36); Mean Corpuscular Volume 90.3 fL (80-100); Mean Platelet Volume 8.4 fL (7.4-10.4); Monocytes # (auto) 0.85 K/uL (0.11-0.59); Monocytes % (auto) 18.5 %; Neutrophils # (auto) 3.18 K/uL (1.4-6.5); Neutrophils % (auto) 69.3 %; Platelet Count 326 K/uL (130-400); RDW Coefficient of Variation 13.5 % (11.5-14.5); RDW Standard Deviation 43.4 fL (36.4-46.3); White Blood Count 4.59 K/uL (4.8-10.8)
[2020-10-07] MEDS: levETIRAcetam 500 MG TAB PO SCH ×2 (07:32→18:46)
[2020-10-07] MEDS: levETIRAcetam 250 MG TAB PO SCH ×2 (07:32→18:46)
--- NOTE | 2020-10-07 07:39 | XRay Report ---
SINGLE VIEW CHEST CLINICAL HISTORY: Malignant pleural effusion. FINDINGS: An AP, portable, upright chest radiograph is compared to chest x-ray and chest CT dated 10/06. A 2-lead cardiac pacemaker is unchanged in position. Again seen is complete opacification of the left hemithorax consistent with pleural effusion and atelectasis of the left lung. There is assoc iated leftward shift of the mediastinum. The cardiomediastinal silhouette is obscured. There is a sma ll right pleural effusion with right basilar atelectasis. No pneumothorax is seen. The skeletal struc tures are osteopenic. There are healed bilateral rib fractures. IMPRESSION: 1. Again seen is complete opacification of the left hemithorax consistent with atelectasis of the lef t lung and pleural effusion. This is unchanged from yesterday. 2. Persistent right right pleural effusion with right basilar atelectasis ACT 112: Negative or not required by law. Electronically signed by: Mitchel Keith M.D. 10/07/2020 7:37 AM
[2020-10-07 07:41] LABS: BUN Creatinine Ratio 15.1 (10-20); Calcium 8.3 mg/dl (8.5-10.1); Creatinine Clr Calc Pharmacy 103.6 ml/min; Est GFR (African American) 121.1; Est GFR (Non-African American) 104.5; Magnesium 2.4 mg/dl (1.8-2.4); Phosphorus 2.8 mg/dl (2.5-4.9); Potassium 3.3 mmol/L (3.5-5.1)
[2020-10-07] MEDS: LACOSAMIDE 50 MG TABLET PO SCH ×2 (07:52→18:46)
[2020-10-07] MEDS: POT PHOSPHATE MONOBASIC W/ SOD TAB PO SCH ×2 (07:53→21:00)
[2020-10-07] MEDS: CALCIUM 600MG + VIT D 400 IU TAB PO SCH ×2 (07:54→21:01)
[2020-10-07] MEDS: FLUTICASONE PROPIONATE NA SPR 16 GM BTL SCH (07:54)
[2020-10-07] MEDS ORDERED: POTASSIUM CHLORIDE CRTAB 20 MEQ TABCR PO ONE (09:45)
[2020-10-07] MEDS ORDERED: fentaNYL citrate 100 MCG/2 ML VIAL ONE (10:54)
[2020-10-07] MEDS ORDERED: MIDAZOLAM HCL 5 MG/ML 1 ML VIAL ONE (10:54)
--- NOTE | 2020-10-07 11:30 | Pre Anesthesia Assessment ---
Date of Service October 07, 2020 Pre Sedation Assessment Vital Signs Temp Pulse Pulse Resp BP BP Pulse Ox 10/07/20 07:20 36.5 C 91 H 17 129/83 95 10/07/20 03:26 36.2 C L 97 H 16 127/87 93 10/07/20 00:00 88 10/06/20 23:13 36.4 C L 97 H 19 148/94 H 96 10/06/20 19:24 36.3 C L 96 H 22 133/85 95 10/06/20 16:25 97 H 10/06/20 15:48 36.5 C 100 H 22 151/95 H 93 10/06/20 14:40 95 H 24 154/120 H 95 10/06/20 14:35 83 24 143/101 H 94 10/06/20 14:30 85 22 139/99 96 10/06/20 14:25 85 22 133/102 H 95 10/06/20 14:20 83 25 H 133/96 96 10/06/20 14:16 95 H 23 150/109 H 96 10/06/20 13:00 88 21 174/108 H 96 10/06/20 12:24 89 26 H 161/108 H 95 Pre-Sedation Airway Assessment Smoking Status: Never smoker Hx Sleep Apnea: No Short, Thick Neck: No Thyromental Distance: < 3.5 Finger Breadths Oral Cavity: + WNL Mallampati Class: II ASA: ASA3 NPO Status Date of Last Intake of Fluids: 10/07/20 Time of Last Intake of Fluids: 00:00 Last Oral Intake of Fluids Comment: atleast since midnight, sips with meds this am Date of Last Intake of Solid Food: 10/07/20 Time of Last Intake of Solid Foods: 00:00 Last Intake of Solids Comment: atleast since midnight, dinner last night Notes The planned sedation has been discussed with the patient. Informed Consent was obtained. I have identified the patient, determined the appropriateness of sedation and have assessed the patient immediately prior to the procedure. All medicine(s) and interventions are by my order.
--- NOTE | 2020-10-07 11:34 | Pulmonology Progress Note ---
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 Her chest x-ray now demonstrates complete atelectasis of the left lung whereas prior imaging reports from [facility] indicate only partial atelectasis including the left upper lobe and portions of the left lower lobe. I suspect that the previously noted endobronchial abnormality described on bronchoscopy from [facility] 03/2020 has progressed and has now resulted in complete lung atelectasis. I performed a limited thoracic ultrasound in the emergency room which did not demonstrate a large amount of left-sided pleural fluid. However significant mediastinal shift was noted with cardiac structures being shifted i nto the pleural space. This was confirmed on the CT scan. She does have a right-sided effusion which is actually larger than the left however she did not achieve much in the way of symptomatic improvement when that was drained. I suspect that her shortness of breath is related to lung atelectasis with shunt physiology. Recommendations: 1. Left lung atelectasis: Suspect an endobronchial lesion. The patient has elected to pursue a bronchoscopy to further evaluate her patency of her airway. I think this is reasonable. I did briefly review her films with radiation oncology and given the chronicity of her atelectasis, it is unlikely that we will have significant radiation oncology interventions. If the airway is patent, could consider brachytherapy. 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 2. Right pleural effusion: Patient did not have significant benefit from thoracentesis previously however her respiratory status has declined. We will repeat thoracentesis on the right to see if it offers her a clinical benefit. Depending on clinical response, consideration for placement of an indwelling tunneled Pleurx catheter may be appropriate. 3. Continue supplemental oxygen titrated to keep saturations at or above 88%. 4. Consultation with palliative care medicine is appropriate given the progression of the patient's disease. She would benefit from palliation of symptoms. We will follow up with patient's clinical response to thoracentesis and results of bronchoscopy. Additional management per primary admitting service Admission and Anticipated Discharge Date Admission Date: October 06, 2020 Subjective Patient seen and examined. Discussed with admitting hospitalist and with the patient at bedside. After careful consideration, she has elected to undergo additional investigative procedures including bronchoscopy and thoracentesis. She is n.p.o. She does not report any significant changes in her respiratory complaints. She continues to feel short of breath with any significant physical activity. She has persistent chest tightness in her left chest. No significant syncope presyncope or palpitations. Review of Systems Review of Systems: Unchanged from prior Physical Exam Constitutional: + frail appearing ENMT: Mallampati Class: II Neck: trachea midline, no thyromegaly Respiratory: + labored breathing Cardiovascular: RRR, no murmur, no edema Gastrointestinal (Abdomen): normal bowel sounds, soft, nontender, no hepatosplenomegaly Musculoskeletal: Extremities: extremities normal to inspection Skin: no rashes, warm and dry Lymphatic: no cervical lymphadenopathy Results & Data Results & Data ([facility]) Vital Signs (Past 12 Hours) Vital Signs Temp Pulse Pulse Resp BP Pulse Ox 10/07/20 07:20 36.5 C 91 H 17 129/83 95 10/07/20 03:26 36.2 C L 97 H 16 127/87 93 10/07/20 00:00 88 Laboratory Results 10/07/20 06:58 10/07/20 06:58 Diagnostic Findings No new imaging studies PG Care Time/CCT Total # of Minutes Spent Total Time Spent with Patient: Total time spent is greater than 50% in coordination of care (as documented) at patient's floor/unit and/or counseling patient: Coding Level of Care Code 35697 Subseq Hosp Care Lvl 3 Diagnoses Malignant pleural effusion J91.0 Atelectasis of left lung J98.11 Hypoxemia R09.02
--- NOTE | 2020-10-07 12:21 | Post Anesthesia Assessment ---
Date of Service October 07, 2020 Post Sedation Assessment Vital Signs Temp Pulse Pulse Resp BP BP Pulse Ox 10/07/20 12:00 114 H 18 154/94 H 96 10/07/20 11:55 104 H 18 154/100 H 96 10/07/20 11:50 110 H 18 164/102 H 99 10/07/20 11:45 98 H 18 136/85 100 10/07/20 11:40 103 H 18 138/86 100 10/07/20 11:35 105 H 18 137/90 100 10/07/20 11:30 108 H 18 148/88 H 100 10/07/20 07:20 36.5 C 91 H 17 129/83 95 10/07/20 03:26 36.2 C L 97 H 16 127/87 93 10/07/20 00:00 88 10/06/20 23:13 36.4 C L 97 H 19 148/94 H 96 10/06/20 19:24 36.3 C L 96 H 22 133/85 95 10/06/20 16:25 97 H 10/06/20 15:48 36.5 C 100 H 22 151/95 H 93 10/06/20 14:40 95 H 24 154/120 H 95 10/06/20 14:35 83 24 143/101 H 94 10/06/20 14:30 85 22 139/99 96 10/06/20 14:25 85 22 133/102 H 95 10/06/20 14:20 83 25 H 133/96 96 10/06/20 14:16 95 H 23 150/109 H 96 10/06/20 13:00 88 21 174/108 H 96 10/06/20 12:24 89 26 H 161/108 H 95 Discharge Sedation Level of Care: Fast Track Phase II Post Sedation Plan On clinical assessment, the patient appears to have tolerated the sedation without complications. Patient is recovering as anticipated. Patient will continue to be monitored by nursing and may be discharged when sedation discharge criteria are met per below protocol. Upon Completions of procedure up to 15 minutes continue every 5 minute vital signs and the P.A.R. score; then discharge to a Phase I or Fast Track to Phase II per the following guidelines: * Discharge Patient to appropriate Phase II area if PAR is 8 or greater or return to pre- procedure baseline. The post - procedure orders will be as directed. * If PAR score is less than 8 or not return to pre-procedure baseline then patient will follow Phase I monitoring till PAR is reached for Phase II. The Phase I may be done in procedure room or may call to secure a Phase I area. * If naloxone or flumazenil are used for reversal, hold in Phase I for continued monitoring from when last reversal dose was given for a minimum of 60 minutes or longer pending the nurse and/or physician discretion of patient condition before discharge to Phase II. Please call the Sedation Physician to re-evaluate and complete post-note for discharge to Phase II area. Do NOT discharge from procedure sedation or Phase 1 until post- sedation evaluation note is complete by procedure /sedation MD Sedation Discharge Instructions to be given to the patient at discharge to home.
--- NOTE | 2020-10-07 12:40 | Procedure Note ---
Procedure Note Date of Service October 07, 2020 Procedure: Fiberoptic bronchoscopy Conscious sedation Provider: Duane Harvey MD Consent: Signed by patient and timeout verified prior to procedure. Sedation start: 1138 Sedation end: 1225 Conscious sedation: 87.5 mcg fentanyl, 2.5 mg Versed, topical lidocaine per RT per Procedure: Patient was brought to the bronchoscopy suite. Consent was verified. Appropriate radiographic studies had been reviewed prior to the procedure. Standard monitoring was applied. Oxygen was administered. After topical anesthesia of the airways per respiratory therapy protocol, the fiberoptic scope was advanced through the right nares. Oropharynx was unremarkable. Vocal cords were visualized and were normal in function and appearance. Topical anesthesia of the cords was achieved with instillation of lidocaine through the scope. Scope was then passed through the vocal cords. The trachea was midline. Main james was splayed. Anesthesia of the lower airways was achieved with instillation of lidocaine through the scope. A sequential and systematic examination of the lower airways was conducted. The right-sided airways were widely patent and the mucosa appeared normal. The left mainstem bronchus had a significant clear secretions present which were aspirated free. Once I was able to see into the airway the left mainstem bronchus appeared patent however there was significant submucosal tram tracking evident extending down into the lower airways. The mucosa had a very nodular de nsity within about 1 cm of the takeoff to the left mainstem. The left upper lobe was significantly friable and submucosally occluded without evidence of a clear endobronchial lesion. The mucosal abnormality extended into the left lower lobe as well. The mucosa was easily friable and bled with any significant manipulation. With saline injection, we were able to slightly open up the left lower lobe bronchus however I was unable to pass the scope distally. As the patient has known widely metastatic cancer and the mucosa was extremely friable, biopsies were not conducted. The bronchoscope was then removed from the airways. The patient tolerated the procedure well without obvious complication. Patient was returned to the recovery room. Impression: 1. Left upper lobe and left lower lobe occlusion secondary to extrinsic submucosal compression. No clear endobronchial lesion identified. This is consistent with prior bronchoscopy which demonstrated malignancy. It has progressed based on review of prior report. 2. Right-sided airways were unremarkable. Coding CPT Codes Pulmonary/Thoracic - Pulmonary and Thoracic: 50981 Dx bronchoscopy/wash ([id number]) Sedation/Anesthesia - Sedation/Anesthesia: 37336 Mod Sedation by the same physician;Init15 Min Child Age 5 & Up ([id number]) Sedation/Anesthesia - Sedation/Anesthesia: 40098 Mod Sedation by the same physician; Ea [id number] Minutes ([id number]) [facility] [place] Codes (Charges) Pulmonary/Thoracic Procedure 1: Pulmonary and Thoracic: 35889 Dx bronchoscopy/wash Sedation/Anesthesia Procedure 2: Sedation/Anesthesia: 23666 Mod Sedation by the same physician;Init15 Min Child Age 5 & Up Total Sedation Time (minutes): 42 Procedure 3: Sedation/Anesthesia: 05793 Mod Sedation by the same physician; Ea [id number] Minutes Total Sedation Time (minutes): 42
--- NOTE | 2020-10-07 12:41 | Procedure Note ---
Procedure Note Date of Service October 07, 2020 Procedure: therapeutic ultrasound-guided catheter thoracentesis Speech Language Pathologist: Dr. Duane Harvey Indication: Pleural effusion Consent: Signed by patient and verified with timeout prior to procedure Anesthesia: 8 mL's 1% lidocaine without epinephrine local. Procedure: Consent was verified and timeout performed. Appropriate imaging studies were reviewed prior to the procedure. Patient was placed in a seated position and limited thoracic ultrasound was performed of the right chest. See separate imaging. Site appropriate for thoracentesis was selected. The skin was prepped and draped in normal sterile fashion. Lidocaine was used for local analgesia. Fluid was aspirated via the finder needle. A small skin kenrick was made with the scalpel and the catheter over the needle apparatus was advanced over the rib into the pleural space. Using the syringe one-way valve system, a total of 1600 mL's of clear yellow fluid was removed. Procedure was terminated due to inability to withdraw any additional fluid. The catheter was removed and observed to be intact. A sterile dressing was applied. Post procedure chest x- ray was ordered. Follow-up ultrasound after conclusion of the procedure demonstrated trivial residual pleural fluid with persistent lung sliding noted Fluid was not sent as previous samples have demonstrated malignancy and the procedure was performed for therapeutic intervention only The patient tolerated the procedure well without obvious complication Coding CPT Codes Pulmonary/Thoracic - Pulmonary and Thoracic: 60842 Thoracentesis w imaging ([id number]) [facility] [place] Procedure Codes (Charges) Pulmonary/Thoracic Procedure 1: Pulmonary and Thoracic: 95686 Thoracentesis w imaging
--- NOTE | 2020-10-07 12:51 | XRay Report ---
XR chest 1V portable CLINICAL HISTORY: S/P Thoracentesis COMPARISON STUDY: 10/07/2020 FINDINGS: There is persistent complete opacification of left hemithorax suggesting complete left lung atelectasis. There may be associated pleural effusion. There is interval decrease in the size the ri ght pleural effusion status post thoracentesis. There is no pneumothorax. There is no focal parenchym al consolidation the right. There is an old right-sided rib deformity. This may be pathologic.[ IMPRESSION: 1. Persistent complete opacification of left hemithorax with cardiomediastinal shift to the left 2. Marked interval decrease in the size of the right pleural effusion. No evidence of pneumothorax ACT 112: Negative or not required by law. Electronically signed by: Melvin Butler M.D. 10/07/2020 12:49 PM
--- NOTE | 2020-10-07 17:09 | Hospitalist Progress Note ---
Date of Service October 07, 2020 Assessment & Plan (1) SOB (shortness of breath): (2) Malignant pleural effusion: (3) Breast cancer: Patient is a 70 yr female with H/O Left breast CA initially diagnosed in 2011 now with recurrence in 2019 bony metastasis and brain mets, recurrent malignant pleural effusion, presents with history of worsening dyspnea on minimal exertion. Malignant pleural effusion Left lung atelectasis Hypoxia secondary to above CXR:Persistent complete opacification of left hemithorax with cardiomediastinal shift to the left. Marked interval decrease in the size of the right pleural effusion. No evidence of pneumothorax 10/07/20: S/P Bronchoscopy:Left upper lobe and left lower lobe occlusion secondary to extrinsic submucosal compression. No clear endobronchial lesion identified. This is consistent with prior bronchoscopy which demonstrated malignancy. It has progressed based on review of prior report. Right-sided airways were unremarkable. 10/07/20:thoracentesis: 1600ml of clear yellow fluid was removed. Appreciate Pulmonology Help Continue supplemental oxygen to maintain sats >88% May need 2 Step prior to discharge Consider palliative care evaluation if patient agrees Hypokalemia Replace electrolytes as needed Chronic Hyponatremia Sodium:129>133>135 Continue fluid restriction Seizure disorder In setting of brain mets s/p neurosurgical intervention 07/25 to brain mets continue vimpat/keppra Follows with [facility] Neurology Metastatic Breast Cancer Left breast CA initially diagnosed in 2011 Recurrence in 2019 bony metastasis and brain mets. Completed Adjuvant chemotherapy and 5 yr hormonal treatment with tamoxifen S/P SBRT in 07/2019Jan 2020: Malignant left pleural effusion requiring Pleurx catheter placement. 07/2020: Increased metastatic lesion of right frontoparietal region requiring neurosurgical intervention at [facility] Follows with [facility] Oncology Currently on Xeloda and Xgeva Continue Keppra and Vimpat for seizure prophylaxis (4) Edema of left upper extremity: Doppler: There is no sonographic evidence of deep venous thrombosis identified in the left upper extremity. (5) Hypothyroidism: continue levothyroxine (6) Pacemaker: s/p ppm recent interrogation 07/25 DVT Px: Lovenox SQ CODE STATUS l FULL CODE Admission and Anticipated Discharge Date Admission Date: October 06, 2020 Subjective Patient is seen and examined at bedside States having dyspnea on minimal exertion Offers no other complaints Denies chest pain, dizziness, nausea, abdominal pain Review of Systems Review of Systems: All systems reviewed & are unremarkable except as noted in HPI & below Physical Exam Physical Exam: Physical Exam: Vitals signs as noted above General Appearance:Thin, frail, chronically ill-appearing Head: normocephalic, Atraumatic Eyes: normal inspection, EOMI Neck: supple, Trachea midline Respiratory/Chest:Absent breath sounds on left, Right CTA Cardiovascular: S1, S2, No murmur Abdomen/GI:Soft, Non tender, Bowel sounds present Extremities/Musculoskeletal:normal inspection, LUE edema Neurologic/Psych:AAOX3, grossly no focal neurological deficits Skin: normal color, warm Results & Data Results & Data ([facility]) Vital Signs (Past 12 Hours) Vital Signs Temp Pulse Pulse Resp BP Pulse Ox 10/07/20 16:34 85 10/07/20 14:30 91 H 113/74 95 10/07/20 14:00 84 107/71 95 10/07/20 13:30 85 105/71 100 10/07/20 13:00 36.9 C 92 H 18 100/67 98 10/07/20 12:45 83 18 99/69 L 100 10/07/20 12:40 100 H 18 97/65 L 100 10/07/20 12:35 90 18 104/65 100 10/07/20 12:30 93 H 18 101/62 100 10/07/20 12:25 95 H 18 101/64 100 10/07/20 12:20 114 H 18 103/71 98 10/07/20 12:15 102 H 18 106/65 99 10/07/20 12:10 101 H 18 129/70 97 10/07/20 12:05 105 H 18 138/82 96 10/07/20 12:00 114 H 18 154/94 H 96 10/07/20 11:55 104 H 18 154/100 H 96 10/07/20 11:50 110 H 18 164/102 H 99 10/07/20 11:45 98 H 18 136/85 100 10/07/20 11:40 103 H 18 138/86 100 10/07/20 11:35 105 H 18 137/90 100 10/07/20 11:30 108 H 18 148/88 H 100 10/07/20 07:20 36.5 C 91 H 17 129/83 95 Laboratory Results Short CBC 10/07/20 Range/Units 06:58 WBC 4.59 L (4.8-10.8) K/uL Hgb 11.9 L (12.0-16.0) g/dL Hct 34.3 L (37-47) % Plt Count 326 (130-400) K/uL BMP 10/06/20 10/07/20 20:18 06:58 Sodium 133 L 135 L Potassium 3.4 L 3.3 L Chloride 100 101 Carbon Dioxide 26 26 BUN 7 6 L Creatinine 0.58 L 0.43 L Glucose 126 H 101 H Calcium 8.6 8.3 L
--- NOTE | 2020-10-07 17:25 | Consultation Report ---
DATE OF CONSULTATION: 10/07/2020 NEPHROLOGY CONSULTATION NOTE REASON FOR CONSULT: Hyponatremia. HISTORY OF PRESENT ILLNESS: The patient is a 70-year-old female with metastatic breast cancer with mets to brain as well as lung, was admitted yesterday after she presented with shortness of breath. The patient has known mild hyponatremia and gets checked frequently by Dr. Kay, her oncologist. She had initial left breast cancer diagnosed in 2011 with recurrence in 2019 with bony metastasis as well as brain metastasis. She underwent bronchoscopy earlier today to have a definitive diagnosis of the pulmonary findings. Serum sodium was 129 on admission and she was kept on 1500 mL fluid restriction and with that serum sodium now is 135. Renal function is normal. She does not have any edema. Urine osmolality was 267, urine sodium 39. ALLERGIES: None. HOME MEDICATIONS: List was reviewed and includes calcium, thyroid medicine, Prolia subQ injection, fluticasone, lacosamide, Keppra, potassium phosphate. PAST MEDICAL AND SURGICAL HISTORY: History of breast cancer 2011 with metastasis to brain, bones and lung, status post pacemaker, hypothyroidism, history of radioactive iodine thyroid ablation, pleural effusion, pneumothorax, second-degree heart block. PAST SURGICAL HISTORY: Mastectomy, esophagogastroduodenoscopy, hysteroscopy, cholecystectomy. FAMILY HISTORY: Negative for renal disease or dialysis. SOCIAL HISTORY: She never smoked. She is . 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 She lives with her . No supplemental oxygen. REVIEW OF SYSTEMS: As detailed in HPI. Unless stated otherwise, 12 systems reviewed and negative. Positive review of system includes increasing weakness, fatigue, shortness of breath; however, no extra nausea, vomiting, diarrhea, chest pain. PHYSICAL EXAMINATION: GENERAL: Middle-aged white female who is not in any overt respiratory distress at this time. She is awake, alert, oriented x3. VITAL SIGNS: Blood pressure 113/74, pulse rate 91, temperature 36.9, 95% on room air. HEENT: Mucous membranes moist. NECK: Supple. CHEST: Bilateral clear to auscultation. Decreased breath sounds at the bases. CARDIOVASCULAR: S1, S2 regular. ABDOMEN: Soft, nontender. EXTREMITIES: Shows no edema. LABORATORY TESTS: Shows serum sodium 129 at the time of admission. This morning sodium is already up to 135, BUN is 6, creatinine 0.43. Serum osmolality 265. Urine osmolality 267, urine sodium 39. Chest x-ray, CT scan was reviewed in detail and shows some degree of pulmonary congestion as well as pleural effusion with possible metastatic lesions. ASSESSMENT AND PLAN: A 70-year-old female who appears to have metastatic breast cancer with metastasis to bones, brain and now lung, presenting with chronic hyponatremia. I have been consulted for hyponatremia. Hyponatremia. This is predominantly chronic as even as outpatient, she had somewhat low serum sodium. Given the current diagnosis of metastatic cancer, this has to be related with the diagnosis. Her urine osmolality is not super high, but it is still high for the context of hyponatremia. Regardless of the cause, serum sodium did improve with the fluid restriction and is now almost normal at 135. I would continue with the fluid restriction. She says it is very difficult to be on a 1500 mL fluid restriction and given her advanced nature of cancer, I think it is reasonable to be slightly more liberal. I would have no problem changing the fluid restriction to 1800 mL per day. Her oral intake of solid food is also low as signified by very low BUN, and somewhat low urine osmolality, so the etiology is a combination of syndrome of inappropriate antidiuretic hormone with low solute diet. Did advise her to have higher protein intake, but the hyponatremia problem is really not that severe in the big picture of her current situation, which seems very problematic with advanced metastatic cancer. At this point, there is no need to do frequent labs. We will do once daily labs and increase the fluid restriction to 1800 mL per day.
[2020-10-07] MEDS: ENOXAPARIN INJ 40 MG/0.4 ML SYR SQ SCH (21:01)
[2020-10-08] MEDS: LEVOTHYROXINE SODIUM 100 MCG TABLET PO SCH (06:01)
[2020-10-08 07:07] LABS: Hematocrit (blood only) 35.1 % (37-47); Hemoglobin 12.2 g/dL (12.0-16.0); Mean Corpuscular Hemoglobin 31.4 pg (25-34); Mean Corpuscular Hgb Conc 34.8 g/dL (32-36); Mean Corpuscular Volume 90.2 fL (80-100); Mean Platelet Volume 8.7 fL (7.4-10.4); Platelet Count 414 K/uL (130-400); RDW Coefficient of Variation 13.5 % (11.5-14.5); RDW Standard Deviation 43.5 fL (36.4-46.3); Red Blood Count 3.89 M/uL (4.2-5.4); White Blood Count 6.64 K/uL (4.8-10.8)
[2020-10-08 07:31] LABS: BUN Creatinine Ratio 16.3 (10-20); Calcium 8.8 mg/dl (8.5-10.1); Est GFR (African American) 113.1; Est GFR (Non-African American) 97.6; Potassium 3.4 mmol/L (3.5-5.1)
[2020-10-08 07:59] VITALS: O2SAT 96
[2020-10-08] MEDS: LACOSAMIDE 50 MG TABLET PO SCH (08:04)
[2020-10-08] MEDS: levETIRAcetam 250 MG TAB PO SCH (08:04)
[2020-10-08] MEDS: FLUTICASONE PROPIONATE NA SPR 16 GM BTL SCH (08:05)
[2020-10-08] MEDS: levETIRAcetam 500 MG TAB PO SCH (08:05)
[2020-10-08] MEDS: CALCIUM 600MG + VIT D 400 IU TAB PO SCH (08:05)
[2020-10-08] MEDS: POT PHOSPHATE MONOBASIC W/ SOD TAB PO SCH (08:06)
--- NOTE | 2020-10-08 09:29 | Pulmonology Progress Note ---
Date of Service October 08, 2020 Assessment & Plan (1) Malignant pleural effusion: (2) Atelectasis of left lung: (3) Hypoxemia: Impression: 70-year-old female with history of metastatic breast cancer involving bones of brain and lung now with progressive shortness of breath. Her chest x-ray now demonstrates complete atelectasis of the left lung whereas prior imaging reports from [facility] indicate only partial atelectasis including the left upper lobe and portions of the left lower lobe. I suspect that the previously noted endobronchial abnormality described on bronchoscopy from [facility] 03/2020 has progressed and has now resulted in complete lung atelectasis. I performed a limited thoracic ultrasound in the emergency room which did not demonstrate a large amount of left-sided pleural fluid. However significant mediastinal shift was noted with cardiac structures being shifted i nto the pleural space. This was confirmed on the CT scan. She does have a right-sided effusion which is actually larger than the left however she did not achieve much in the way of symptomatic improvement when that was drained. I suspect that her shortness of breath is related to lung atelectasis with shunt physiology. Recommendations: 1. Left lung atelectasis: Bronchoscopy reviewed with the patient. The left lung demonstrated significant extrinsic compression with submucosal involvement of likely tumor. It is not amenable to stenting or endobronchial therapies. If an updated PET scan shows a significant lesion which is PET avid, radiation therapy could be directed towards that lesion however given the chronicity of the atelectasis, it is unlikely that the lung will open back up at this point in time and likely represents drowned lung. Additional management per medical oncology and consideration for radiation oncology consultation if felt to be appropriate. 2. Right pleural effusion: Patient is clinically improved after drainage of the pleural fluid on the right. Would follow clinically at this point time. Long- term options would include serial thoracentesis or placement of a Pleurx catheter on that side. Rate of fluid reaccumulation would dictate interventions at this point time. She can follow-up with her women's swim coach in [facility] or if she elects to have the procedure done here, will be happy to accommodate her. 3. Continue supplemental oxygen titrated to keep saturations at or above 88%. 4. Consultation with palliative care medicine is appropriate given the progression of the patient's disease. She would benefit from palliation of symptoms. Patient can be dismissed from the hospital from a pulmonary perspective. Feel free to contact us if we can be of additional assistance. Admission and Anticipated Discharge Date Admission Date: October 06, 2020 Physical Exam Constitutional: no acute distress and not ill appearing ENMT: Mallampati Class: II Neck: trachea midline, no thyromegaly Respiratory: normal respiratory effort Absent breath sounds on the left. Thoracentesis site looks good Cardiovascular: RRR, no murmur, no edema Gastrointestinal (Abdomen): normal bowel sounds, soft, nontender, no hepatosplenomegaly Musculoskeletal: Extremities: extremities normal to inspection Skin: no rashes, warm and dry Lymphatic: no cervical lymphadenopathy Results & Data Results & Data ([facility]) Vital Signs (Past 12 Hours) Vital Signs Temp Pulse Resp BP Pulse Ox 10/08/20 07:59 37.2 C 104 H 18 121/75 96 10/08/20 03:17 36.5 C 102 H 14 131/81 97 10/07/20 23:08 36.7 C 107 H 18 123/78 98 Diagnostic Findings Post thoracentesis x-ray was reviewed. Resolution of the subpulmonic effusion on the right. No pneumothorax. Left lung remains atelectatic PG Care Time/CCT Total # of Minutes Spent Total Time Spent with Patient: Total time spent is greater than 50% in coordination of care (as documented) at patient's floor/unit and/or counseling patient: Coding Level of Care Code 43758 Subseq Hosp Care Lvl 2 Diagnoses Malignant pleural effusion J91.0 Atelectasis of left lung J98.11 Hypoxemia R09.02
--- NOTE | 2020-10-08 09:52 | Nephrology Progress Note ---
Date of Service October 08, 2020 Assessment & Plan (1) Chronic hyponatremia: chronic hyponatremia w/ SNa in 130s. doubt this has a role in her seizures. -maintain eukalemia >> gave 40 po K today -daily bmp while in house -continue FR 1.8L -no need for renal follow up in this context unless pt desires, so long as sodium is consistently > 130 Will sign off; pls call if ? Present on Admission?: Yes Admission and Anticipated Discharge Date Admission Date: October 06, 2020 Results & Data ([facility]) Vital Signs (Past 12 Hours) Vital Signs Temp Pulse Resp BP Pulse Ox 10/08/20 07:59 37.2 C 104 H 18 121/75 96 10/08/20 03:17 36.5 C 102 H 14 131/81 97 10/07/20 23:08 36.7 C 107 H 18 123/78 98 Laboratory Results 10/08/20 06:46 10/08/20 06:46
[2020-10-08] MEDS ORDERED: POTASSIUM CHLORIDE PWD 20 MEQ PACK PO ONE (10:14)
[2020-10-08 12:13] VITALS: BP 114/71; PULSE 80; TEMP 97.7
--- NOTE | 2020-10-08 13:12 | Hospitalist Progress Note ---
Date of Service October 08, 2020 Assessment & Plan (1) SOB (shortness of breath): (2) Malignant pleural effusion: (3) Breast cancer: Patient is a 70 yr female with H/O Left breast CA initially diagnosed in 2011 now with recurrence in 2019 bony metastasis and brain mets, recurrent malignant pleural effusion, presents with history of worsening dyspnea on minimal exertion. Malignant pleural effusion Left lung atelectasis Hypoxia secondary to above CXR:Persistent complete opacification of left hemithorax with cardiomediastinal shift to the left. Marked interval decrease in the size of the right pleural effusion. No evidence of pneumothorax 10/07/20: S/P Bronchoscopy:Left upper lobe and left lower lobe occlusion secondary to extrinsic submucosal compression. No clear endobronchial lesion identified. This is consistent with prior bronchoscopy which demonstrated malignancy. It has progressed based on review of prior report. Right-sided airways were unremarkable. 10/07/20:thoracentesis: 1600ml of clear yellow fluid was removed. Appreciate Pulmonology Help Saturating well on room air Patient prefers to have Pleurx catheter placed as outpatient Discussed with Oncology Patient currently not interested in getting palliative care involved. Advised to follow-up with oncology upon discharge. Chronic Hypokalemia Replace electrolytes as needed Chronic Hyponatremia Sodium:129>133>135 Continue fluid restriction Seizure disorder In setting of brain mets s/p neurosurgical intervention 07/25 to brain mets continue vimpat/keppra Follows with [facility] Neurology Metastatic Breast Cancer Left breast CA initially diagnosed in 2011 Recurrence in 2019 bony metastasis and brain mets. Completed Adjuvant chemotherapy and 5 yr hormonal treatment with tamoxifen S/P SBRT in 07/2019Jan 2020: Malignant left pleural effusion requiring Pleurx catheter placement. 07/2020: Increased metastatic lesion of right frontoparietal region requiring neurosurgical intervention at [facility] Follows with [facility] Oncology Currently on Xeloda and Xgeva Continue Keppra and Vimpat for seizure prophylaxis (4) Edema of left upper extremity: Doppler: There is no sonographic evidence of deep venous thrombosis identified in the left upper extremity. (5) Hypothyroidism: continue levothyroxine (6) Pacemaker: s/p ppm recent interrogation 07/25 DVT Px: Lovenox SQ CODE STATUS FULL CODE Disposition Plan to discharge home today. Admission and Anticipated Discharge Date Admission Date: October 06, 2020 Subjective Patient is seen and examined at bedside Denies any Dyspnea today Minimal discomfort at site of thoracentesis No other complaints Discussed with Pulmonology and Oncology today Denies chest pain, dizziness, nausea, abdominal pain Review of Systems Review of Systems: All systems reviewed & are unremarkable except as noted in HPI & below Physical Exam Physical Exam: Physical Exam: Vitals signs as noted above General Appearance:Thin, frail, chronically ill-appearing Head: normocephalic, Atraumatic Eyes: normal inspection, EOMI Neck: supple, Trachea midline Respiratory/Chest:Absent breath sounds on left, Right minimal crackles Cardiovascular: S1, S2, No murmur Abdomen/GI:Soft, Non tender, Bowel sounds present Extremities/Musculoskeletal:normal inspection, LUE edema Neurologic/Psych:AAOX3, grossly no focal neurological deficits Skin: normal color, warm Results & Data Results & Data ([facility]) Vital Signs (Past 12 Hours) Vital Signs Temp Pulse Resp BP Pulse Ox 10/08/20 12:00 36.5 C 80 16 114/71 96 10/08/20 07:59 37.2 C 104 H 18 121/75 96 10/08/20 03:17 36.5 C 102 H 14 131/81 97 Laboratory Results Short CBC 10/08/20 Range/Units 06:46 WBC 6.64 (4.8-10.8) K/uL Hgb 12.2 (12.0-16.0) g/dL Hct 35.1 L (37-47) % Plt Count 414 H (130-400) K/uL BMP 10/08/20 06:46 Sodium 132 L Potassium 3.4 L Chloride 99 Carbon Dioxide 25 BUN 9 Creatinine 0.53 L Glucose 103 H Calcium 8.8
--- NOTE | 2020-10-08 13:17 | Discharge Summary ---
Date of Service October 08, 2020 Admission HPI Per Admitting Provider This is a 70-year-old female who has significant past medical history for left breast CA initially diagnosed in 2011 now with recurrence in 2019 bony metastasis and brain mets. She initially underwent adjuvant chemotherapy as well as 5 years of hormonal treatment with tamoxifen. In 07/2019 she had recurrent disease of right parietal region requiring SBRT. On 02/01/2020 she also had a recurrence with a malignant left pleural effusion requiring Pleurx catheter placement. This was removed on 05/2020. In 07/2020 she was found to have increased metastatic lesion of right frontoparietal region requiring neurosurgical intervention at [facility]. She follows with Dr. Kay hematology oncology. She is currently on treatment regimen of Xeloda and Xgeva. 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 She was seen and evaluated in clinic today and complained of increasing shortness of breath. On 09/02/2020 at [facility] she underwent right lung thoracentesis which was positive for malignant effusion as well. Due to concern for recurrence of effusion she was referred to ED. She also has new onset left upper extremity swelling. Patient complains of increasing shortness of breath over the past week. Because of prior pleural effusion she admits to chronic shortness of breath but this has significantly worsened. She complains of shortness of breath with exertion as well as conversation. At rest she has been more shortness of breath. She also complains of a moist cough and sinus drainage. She denies fever, chills, sweats, lightheadedness, dizziness, chest pain, palpitations, nausea, vomiting, abdominal pain, dysuria, increased urgency or frequency with urination, melena or hematochezia. She overall has decreased appetite and admits to approximately 5 pound weight loss. She lives at home with her . Her primary rn rehab is Dr. Muhammad of [place]. In ED patient made hemodynamically stable saturating 95% on room air. Lab work notable for hyponatremia 129, K3.3, BUN 7, creatinine 0.51, glucose 103. Her COVID-19 influenza swab was negative. Chest x-ray reveals complete opacification of left thorax. Admission Exam Per Admitting Provider Physical Exam Physical Exam: Constitutional: WD/WN, F, dyspneic with conversation, vitals as above, NAD, sitting up in bed, pleasant Head: Normocephalic, Atraumatic Eyes: PERRL, conjunctivae normal, anicteric sclerae ENMT: external ear and nose normal, oropharynx normal Neck: trachea midline, no thyromegaly normal visual inspection Respiratory: normal respiratory effort, lungs clear to auscultation, no wheeze, rales, rhonchi. Normal insp/exp effort, no accessory muscle use Cardiovascular: tachycardic rate or reg rhythm, no murmur, LUE edema Vessels: no JVD or carotid bruit Chest: normal inspection of chest Abdomen: normal bowel sounds, soft, nontender, no hepatosplenomegaly Musculoskeletal: no cyanosis or clubbing, extremities motor strength 5/5 Skin: no rashes, warm and dry normal turgor Neurologic: PERRL, EOMI, accommodation nl, no face palsy, no dysarthria CN's II-XI intact bilaterally and moves all extremities Psychiatric: A+Ox3, euthymic affect Lymphatic: no cervical or axillary lymphadenopathy : deferred Principal Diagnosis Malignant pleural effusion Left lung atelectasis Hypoxia Hypokalemia Hyponatremia Discharge Data Allergies Allergy/AdvReac Type Severity Reaction Status Date / Time No Known Allergies Allergy Verified 10/06/20 12:18 Consultations 10/06/20 12:01 ED Decision to Admit Stat 10/06/20 12:24 Consult Pulmonology Routine 10/06/20 15:43 Consult Nephrology Routine Procedures Performed Operation Date: 10/07/20 11:30 <No data on this case meets the specified criteria> Operation Date: 10/07/20 12:00 Actual Procedures p Bronchoscopy(Bilateral) - Duane Harvey MD s Thoracentesis(Right) - Duane Harvey MD CXR:Persistent complete opacification of left hemithorax with cardiomediastinal shift to the left. Marked interval decrease in the size of the right pleural effusion. No evidence of pneumothorax 10/07/20: S/P Bronchoscopy:Left upper lobe and left lower lobe occlusion secondary to extrinsic submucosal compression. No clear endobronchial lesion identified. This is consistent with prior bronchoscopy which demonstrated malignancy. It has progressed based on review of prior report. Right-sided airways were unremarkable. 10/07/20:thoracentesis: 1600ml of clear yellow fluid was removed. Ordered Studies 10/06/20 12:51 CT angio chest PE protocol Stat US venous doppler UE LT Stat Hospital Course (1) SOB (shortness of breath): (2) Malignant pleural effusion: (3) Breast cancer: Patient is a 70 yr female with H/O Left breast CA initially diagnosed in 2011 now with recurrence in 2019 bony metastasis and brain mets, recurrent malignant pleural effusion, presents with history of worsening dyspnea on minimal exertion. Malignant pleural effusion Left lung atelectasis Hypoxia secondary to above CXR:Persistent complete opacification of left hemithorax with cardiomediastinal shift to the left. Marked interval decrease in the size of the right pleural effusion. No evidence of pneumothorax 10/07/20: S/P Bronchoscopy:Left upper lobe and left lower lobe occlusion secondary to extrinsic submucosal compression. No clear endobronchial lesion identified. This is consistent with prior bronchoscopy which demonstrated malignancy. It has progressed based on review of prior report. Right-sided airways were unremarkable. 10/07/20:thoracentesis: 1600ml of clear yellow fluid was removed. Appreciate Pulmonology Help Saturating well on room air Patient prefers to have Pleurx catheter placed as outpatient Discussed with Oncology Patient currently not interested in getting palliative care involved. Advised to follow-up with oncology upon discharge. Chronic Hypokalemia Replace electrolytes as needed Chronic Hyponatremia Sodium:129>133>135 Continue fluid restriction Seizure disorder In setting of brain mets s/p neurosurgical intervention 07/25 to brain mets continue vimpat/keppra Follows with [facility] Neurology Metastatic Breast Cancer Left breast CA initially diagnosed in 2011 Recurrence in 2019 bony metastasis and brain mets. Completed Adjuvant chemotherapy and 5 yr hormonal treatment with tamoxifen S/P SBRT in 07/2019Jan 2020: Malignant left pleural effusion requiring Pleurx catheter placement. 07/2020: Increased metastatic lesion of right frontoparietal region requiring neurosurgical intervention at [facility] Follows with [facility] Oncology Currently on Xeloda and Xgeva Continue Keppra and Vimpat for seizure prophylaxis (4) Edema of left upper extremity: Doppler: There is no sonographic evidence of deep venous thrombosis identified in the left upper extremity. (5) Hypothyroidism: continue levothyroxine (6) Pacemaker: s/p ppm recent interrogation 07/25 DVT Px: Lovenox SQ CODE STATUS FULL CODE Disposition Plan to discharge home today. Total Time Total Time Spent Total Time Spent (In Minutes): 43 minutes Total Time Includes: Examination of the Patient, Discharge Planning, Medication Reconciliation, Communication With Other Providers and Other Discharge Plan Discharge Items Patient Disposition: Home - Self-Care Reason For Visit: MALIGNANT L PLEURAL EFFUSION Discharge Diagnosis: Malignant pleural effusion Left lung atelectasis Hypoxia Hypokalemia Hyponatremia Activity: Per Instructions section Exercise/Sports: Wait until after follow-up appointment Non-emergency contact: Primary Care Provider, Oncologist and Quality Control Engineer Call non-emergency contact if: you have any medication questions, your symptoms worsen, your pain is not controlled, your pain is concerning for you and you have a fever Follow-up/Referrals: Ktalin Kay MD [Primary Care Provider] - Diet: Regular Fluids: 1800ml (7 cups) Addtl Attending Provider Instructions: Follow-up with your primary care physician Dr. Katlin Kay in 1 week Follow-up with your rn rehab in 2-3 weeks as advised for possible placement of Pleurx catheter Follow-up with your oncologist Dr. Vahe Kay as advised Seek immediate medical attention if your symptoms reoccur or worsen Please call if you have any questions or problems. You can reach a [facility] hospitalist on duty at [facility] 24 hours a day by calling [phone] Pending Studies at Discharge: No Stand-Alone Forms: My [facility], Smoking Cessation Medications and DC Order Prescriptions: Continued Xgeva 120 mg/1.7 mL (70 mg/mL) solution 120 mg SQ MONTHLY RF: 0 levetiracetam [Keppra] 1,000 mg tablet 1,000 mg PO BID RF: 0 levetiracetam [Keppra] 750 mg tablet 750 mg PO BID RF: 0 Vimpat 100 mg tablet 200 mg PO BID RF: 0 levothyroxine 100 mcg Tablet 100 mcg PO QAM RF: 0 calcium carbonate-vitamin D3 [Calcium 500 With D] 500 mg(1,250mg) -400 unit Tablet 1 tab PO BID RF: 0 fluticasone propionate 50 mcg/actuation spray,suspension 1 sprays INTRANASAL QAM RF: 0 K-Phos Original 500 mg tablet,soluble 500 mg PO BID RF: 0 Discharge Orders: Discharge Order (Routine); Ordered 10/08/20 Ordered By: Christiano Rose Admission Data Admit Date/Time: 10/06/20 12:24 Attending Provider: Christiano Rose Admit Provider: Jacquelin Estevez Primary Care Provider: Katlin Kay Other Providers: Duane Harvey ; Jacquelin Estevez ; Cyndi Gann ; Dhruv Gonzalez ; Paulette Lovett ; Anamika Timmons ; eGne Clayton ; Annalise Abreu Other Interventions: Discharge Summary Assessment (RN) Last Done: 10/08/20 13:18
== END 2020-10-08 13:50 | disposition home or self-care (01) | DRG 598 ==
LOC: ED 09:23 → 2S 12:24 → SUATTDRO 12:24 → 2S 14:49

== ENCOUNTER 2020-12-11 15:27 | Inpatient (IN) ==
--- NOTE | 2020-12-11 16:20 | Emergency Department Note ---
Impression & Plan Chronic hyponatremia, Breast cancer metastasized to brain, Atelectasis of left lung, Malignant pleural effusion ED Provider Note NAME: SHERMAN LAND AGE: 70 SEX: F ARRIVES VIA: Ambulance INFORMANT: Patient, ED PROVIDER(S): Chace Caldera MD CHIEF COMPLAINT: Hyponatremia. PLAN: Disposition: Admit MEDICAL DECISION MAKING: The patient is a pleasant 70-year-old woman with a past medical history of metastatic breast cancer with history of brain metastases, chronic hyponatremia, chronic malignant pleural effusion with indwelling right right Pleurx catheter for periodic drainage who presents emergency department referred by her outpatient providers after outpatient labs today showed severe hyponatremia with sodium of 111 which was decreased from 127 approximately 3 weeks ago. During this time, the patient reports she has felt fatigued weak and intermittently dizzy which they had attributed to the patient's Vimpat which the patient had re cently started for seizure prevention in setting of her brain metastases. The patient and her deny any acute confusion, vomiting, diarrhea or urinary symptoms. On arrival the patient is chronically ill-appearing but no acute distress, afebrile stable vital signs. She is alert and oriented and exhibits no focal neurologic deficits. She has generalized weakness in all extremities. She has dry cracked mucous membranes but does also exhibit evidence of third spacing with 2+ bilateral lower extremity pitting edema. Chest x-ray demonstrates right pleural effusion and chronic opacification of left lung field. WBC, hemoglobin within normal limits. Platelets 400K. Chemistry without m etabolic acidosis. Serum sodium was 113. Osmolality decreased at 237. Phosphorus 1.6 and electrolytes otherwise unremarkable. LFTs without significant abnormality. TSH is elevated at 38 however free T4 within normal limits. COVID-19 PCR was negative. The patient's profound hyponatremia she was ordered for initial treatment with 100 cc 3% normal saline. Given the patient is mentating at her baseline will defer repeat dosing pending trending sodium and per admitting team. The patient and her at bedside are in agreement with plan for admission. Case was discussed with Genie Nicholas, Matt PAC, with Dr. Herb Gutierrez hospitalist who will evaluate the patient for admission. Triage Nursing notes reviewed and agree them. Prior medical records reviewed Vital Signs: reviewed and remarkable for no significant abnormalities Differential diagnosis: Infection, dehydration, metabolic abnormality, hypo/hyperglycemia, electrolyte disturbance, anemia, hypoxia, cardiac sources, intracerebral event, toxicologic, neurologic, as well as other pathologies. ER treatment provided: See below. Diagnostics interpreted by me: ECG: Atrial sensed ventricular paced rhythm, no ectopy, 89 bpm, no overt acute ischemia. Cardiac Monitoring: An order for continuous cardiac monitoring was placed and demonstrated atrial sensed ventricular paced rhythm, 89 bpm, no ectopy. Laboratory studies: See below Imaging studies: See below Consultation(s): Case was discussed with Genie Nicholas, Matt PAC, with Dr. Herb Gutierrez hospitalist who will evaluate the patient for admission. HPI: The patient is a pleasant 70-year-old woman with a past medical history of metastatic breast cancer with history of brain metastases, chronic hyponatremia, chronic malignant pleural effusion with indwelling right right Pleurx catheter for periodic drainage who presents emergency department referred by her ou tpatient providers after outpatient labs today showed severe hyponatremia with sodium of 111 which was decreased from 127 approximately 3 weeks ago. During this time, the patient reports she has felt fatigued weak and intermittently dizzy which they had attributed to the patient's Vimpat which the patient had recently started for seizure prevention in setting of her brain metastases. The patient and her deny any acute confusion, vomiting, diarrhea or urinary symptoms. ROS: See above HPI for pertinent positives & negatives. A total of 10 systems reviewed and were otherwise negative. PAST MEDICAL HISTORY:See Below PAST SURGICAL HISTORY:See Below FAMILY HISTORY:See Below SOCIAL HISTORY:See Below HOME MEDICATIONS:See Below ALLERGIES:See Below VITALS:See Below PHYSICAL EXAMINATION: GENERAL: Awake, alert, fatigued, chronically ill-appearing, in no distress HENT: Normocephalic, atraumatic. Oropharynx with dry mucous membranes and otherwise unremarkable. EYES: Normal conjunctiva. Sclera non-icteric. NECK: Supple. No nuchal rigidity. FROM. No JVD. RESPIRATORY: Clear to auscultation. CARDIAC: Regular rate, normal rhythm. Extremities warm and well perfused. Pulses equal. ABDOMEN: Soft, non-distended. No tenderness to palpation. No rebound or guarding. No masses. RECTAL: Deferred. MUSCULOSKELETAL: Chest examination reveals no tenderness. The back is symmetrical on inspection without obvious abnormality. There is no CVA tenderness to palpation. No joint edema. LOWER EXTREMITIES: Calves are equal size bilaterally and non-tender. 2+ bilat eral lower extremity pitting edema. No discoloration. NEURO: Normal sensorium. No sensory or motor deficits noted. SKIN: No rash or jaundice noted. ED COURSE: Critical Care: I have personally spent greater than 35 minutes of critical care time in the direct management of this patient. This includes bedside care, interpretation of diagnostic studies, and testing, discussion with consultants, patient, and family members, and other required patient management activities. This 35 minutes is in excess of all separately billable procedures. Chace Caldera MD Past Med/Surg History Medical History Brain edema Breast cancer "s/p left mastectomy and chemotherapy" Complex partial status epilepticus Extremity edema Focal seizures GERD (gastroesophageal reflux disease) H/O radioactive iodine thyroid ablation Hypothyroidism Pacemaker Since 2014 Pleural effusion Pneumothorax Second degree heart block Surgical History H/O left mastectomy "10/16/11 with sentinel lymph node bx" History of esophagogastroduodenoscopy (EGD) History of hysteroscopy S/P cholecystectomy Family History Mother , age 87 bowel blockage and heart diease No problems noted. Father , age 81 unknown type of cancer No problems noted. Brother No problems noted. Brother No problems noted. Sister No problems noted. Sister Cancer skin cancer Daughter No problems noted. Daughter No problems noted. 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 Feels Safe at Home: Yes Childhood Exposure to Second-Hand Smoke: Yes caffeine: Yes (3 cups per day green tea 3 times per week) during the past year weight has: decreased > 10 lbs Dental Care, Regularly: Yes Physical Activity Frequency: Daily Physical Activity Frequency Comment: daily walks Seatbelt Use: always Sunscreen Use: Yes Assistive Devices: Walker Allergies Allergies Allergy/AdvReac Type Severity Reaction Status Date / Time No Known Allergies Allergy Verified 12/11/20 17:11 Home Meds Home Medications Medication Instructions Recorded Confirmed levothyroxine 100 mcg PO QAM 07/10/19 12/11/20 denosumab 120 mg/1.7 mL (70 mg/mL) 120 mg SQ MONTHLY ml 07/25/19 12/11/20 subcutaneous solution fluticasone propionate 50 1 sprays INTRANASAL QAM ml 08/12/19 12/11/20 mcg/actuation nasal spray,suspension potassium phosphate, monobasic 500 500 mg PO BID tab 01/14/20 12/11/20 mg soluble tablet capecitabine 500 mg tablet 500 mg PO BID tab 11/03/20 12/11/20 lacosamide [Vimpat] 150 mg PO QAM 12/11/20 12/11/20 lacosamide [Vimpat] 200 mg PO QPM 12/11/20 12/11/20 levetiracetam 1,700 mg PO BID 12/11/20 12/11/20 ondansetron 8 mg TRANSLINGUAL Q8H PRN 12/11/20 12/11/20 urea 1 applic TOPICAL BID 12/11/20 12/11/20 Results & Data (ED) Vital Signs Vital Signs - 24 hr 12/11/20 15:34 12/11/20 16:00 12/11/20 17:02 Temperature 36.5 C Temperature Source Oral Pulse Rate 88 89 89 Pulse Rate from SpO2 Sensor 89 90 88 Pulse Rhythm Regular Regular Pulse Strength Normal Respiratory Rate 18 15 20 Respiratory Effort / Characteristics Non-Labored Spontaneous Respiratory Depth Normal Respiratory Pattern Regular Blood Pressure 116/77 119/75 Blood Pressure Mean 90 89 Blood Pressure Position Sitting Pulse Oximetry 96 96 96 Oxygen Delivery Method Room Air Room Air Sepsis Recent Fever Within 48 Hours No Sepsis New/Unexplained Change in Mental Status No Sepsis Action Taken by Nursing No Action Required 12/11/20 17:10 12/11/20 17:20 12/11/20 17:30 Temperature Temperature Source Pulse Rate 92 H 91 H 89 Pulse Rate from SpO2 Sensor 92 H 91 H 89 Pulse Rhythm Pulse Strength Respiratory Rate 20 20 17 Respiratory Effort / Characteristics Respiratory Depth Respiratory Pattern Blood Pressure Blood Pressure Mean Blood Pressure Position Pulse Oximetry 96 96 96 Oxygen Delivery Method Sepsis Recent Fever Within 48 Hours Sepsis New/Unexplained Change in Mental Status Sepsis Action Taken by Nursing 12/11/20 17:40 12/11/20 17:50 12/11/20 18:00 Temperature Temperature Source Pulse Rate 88 90 91 H Pulse Rate from SpO2 Sensor 88 90 91 H Pulse Rhythm Pulse Strength Respiratory Rate 16 20 18 Respiratory Effort / Characteristics Respiratory Depth Respiratory Pattern Blood Pressure 118/72 Blood Pressure Mean 87 Blood Pressure Position Pulse Oximetry 96 97 96 Oxygen Delivery Method Sepsis Recent Fever Within 48 Hours Sepsis New/Unexplained Change in Mental Status Sepsis Action Taken by Nursing Laboratory Data Attestation: I reviewed the patient's lab results. Result diagrams: 12/11/20 16:47 12/12/20 00:42 Lab Results 12/11/20 12/11/20 12/11/20 Range/Units 16:47 16:47 16:55 WBC 6.76 (4.8-10.8) K/uL RBC 4.06 L (4.2-5.4) M/uL Hgb 12.0 (12.0-16.0) g/dL Hct 34.0 L (37-47) % MCV 83.7 (80-100) fL MCH 29.6 (25-34) pg MCHC 35.3 (32-36) g/dL RDW Std Deviation 55.8 H (36.4-46.3) fL RDW Coeff of Mayuri 19.2 H (11.5-14.5) % Plt Count 411 H (130-400) K/uL MPV 8.3 (7.4-10.4) fL Immature Gran % (Auto) 0.4 % Neut % (Auto) 83.2 % Lymph % (Auto) 5.8 % [place] % (Auto) 9.9 % Eos % (Auto) 0.6 % Baso % (Auto) 0.1 % Neut # (Auto) 5.62 (1.4-6.5) K/uL Lymph # (Auto) 0.39 L (1.2-3.4) K/uL [place] # (Auto) 0.67 H (0.11-0.59) K/uL Eos # (Auto) 0.04 (0-0.5) K/uL Baso # (Auto) 0.01 (0-0.2) K/uL Immature Gran # (Auto) 0.03 H (0.00-0.02) K/uL Sodium 113 L* (136-145) mmol/L Potassium 4.1 (3.5-5.1) mmol/L Chloride 78 L (98-107) mmol/L Carbon Dioxide 27 (21-32) mmol/L Anion Gap 9.0 (3-11) BUN 11 (7-18) mg/dl Creatinine 0.45 L (0.6-1.2) mg/dl Est Cr Clr Drug Dosing 99.0 ml/min Est GFR ( Amer) 119.3 ml/min Est GFR (Non-Af Amer) 103.0 ml/min BUN/Creatinine Ratio 25.3 H (10-20) Glucose 118 H (70-99) mg/dl Osmolality 237 L* (280-300) mOsm/kg Calcium 8.5 (8.5-10.1) mg/dl Phosphorus 1.6 L (2.5-4.9) mg/dl Magnesium 2.2 (1.8-2.4) mg/dl Total Bilirubin 0.3 (0.2-1) mg/dl Direct Bilirubin 0.1 (0-0.2) mg/dl AST 27 (15-37) U/L ALT 15 (12-78) U/L Alkaline Phosphatase 138 H (45-117) U/L Total Protein 6.5 (6.4-8.2) gm/dl Albumin 2.3 L (3.4-5.0) gm/dl Globulin 4.2 H (2.5-4.0) gm/dl Albumin/Globulin Ratio 0.5 L (0.9-2) Lipase 61 L (73-393) U/L TSH 38.300 H (0.300-4.500) uIu/ml Free T4 1.31 (0.8-1.6) ng/dl COVID-19 Eval Order SARS-CoV-2 (PCR) (Negative) 12/11/20 12/11/20 Range/Units 17:08 17:08 WBC (4.8-10.8) K/uL RBC (4.2-5.4) M/uL Hgb (12.0-16.0) g/dL Hct (37-47) % MCV (80-100) fL MCH (25-34) pg MCHC (32-36) g/dL RDW Std Deviation (36.4-46.3) fL RDW Coeff of Mayuri (11.5-14.5) % Plt Count (130-400) K/uL MPV (7.4-10.4) fL Immature Gran % (Auto) % Neut % (Auto) % Lymph % (Auto) % [place] % (Auto) % Eos % (Auto) % Baso % (Auto) % Neut # (Auto) (1.4-6.5) K/uL Lymph # (Auto) (1.2-3.4) K/uL [place] # (Auto) (0.11-0.59) K/uL Eos # (Auto) (0-0.5) K/uL Baso # (Auto) (0-0.2) K/uL Immature Gran # (Auto) (0.00-0.02) K/uL Sodium (136-145) mmol/L Potassium (3.5-5.1) mmol/L Chloride (98-107) mmol/L Carbon Dioxide (21-32) mmol/L Anion Gap (3-11) BUN (7-18) mg/dl Creatinine (0.6-1.2) mg/dl Est Cr Clr Drug Dosing ml/min Est GFR ( Amer) ml/min Est GFR (Non-Af Amer) ml/min BUN/Creatinine Ratio (10-20) Glucose (70-99) mg/dl Osmolality (280-300) mOsm/kg Calcium (8.5-10.1) mg/dl Phosphorus (2.5-4.9) mg/dl Magnesium (1.8-2.4) mg/dl Total Bilirubin (0.2-1) mg/dl Direct Bilirubin (0-0.2) mg/dl AST (15-37) U/L ALT (12-78) U/L Alkaline Phosphatase (45-117) U/L Total Protein (6.4-8.2) gm/dl Albumin (3.4-5.0) gm/dl Globulin (2.5-4.0) gm/dl Albumin/Globulin Ratio (0.9-2) Lipase (73-393) U/L TSH (0.300-4.500) uIu/ml Free T4 (0.8-1.6) ng/dl COVID-19 Eval Order Covid19 at [facility] SARS-CoV-2 (PCR) NEGATIVE (Negative) Administered Medications Lacosamide (Lacosamide 50 Mg Tablet) 200 mg PO QPM SON Stop: 01/10/21 20:59 Last Admin: 12/11/20 21:57 Dose: 200 mg Documented by: [id number] Levetiracetam (Levetiracetam Oral Soln 100mg/Ml) 1,700 mg PO BID SON Stop: 01/10/21 20:59 Last Admin: 12/11/20 21:55 Dose: 1,700 mg Documented by: [id number] Miscellaneous (*Urea 20% Cream*Order Awaiting Action) 1 ea N/A QS SON Stop: 01/11/21 00:00 Last Admin: 12/12/20 00:07 Dose: Not Given Documented by: [id number] Morphine Sulfate (Morphine Sulfate 4 Mg/Ml 1 Ml Carp\\Vial) 3 mg IV Q4H PRN PRN Reason: Pain Stop: 12/25/20 21:44 Last Admin: 12/11/20 21:54 Dose: 3 mg Documented by: [id number] Potassium Phosphate (Pot Phosphate Monobasic W/ Sod Tab) 2 tab PO BID SON Stop: 01/10/21 20:59 Last Admin: 12/11/20 21:58 Dose: 2 tab Documented by: [id number] Discontinued Medications Sodium Chloride (Hypertonic Saline 3%) 100 mls @ 600 mls/hr IV .Q10M ONE; Aryan col Stop: 12/11/20 17:54 Last Infusion: 12/11/20 18:05 Dose: 0 mls/hr Documented by: [id number] Cosigned by: [id number] Admin: 12/11/20 17:54 Dose: 600 mls/hr Documented by: [id number] Cosigned by: [id number] Sodium Chloride (Hypertonic Saline 3%) 150 mls @ 30 mls/hr IV .Q5H SON; Protocol Stop: 12/12/20 02:15 Last Admin: 12/12/20 03:04 Dose: Not Given Documented by: [id number] Infusion: 12/12/20 02:45 Dose: 0 mls/hr Documented by: [id number] Cosigned by: [id number] Admin: 12/11/20 22:38 Dose: 30 mls/hr Documented by: [id number] Cosigned by: [id number] Miscellaneous (Stop Order) 1 ea N/A TODAY@0215 ONE Stop: 12/12/20 02:16 Last Admin: 12/12/20 03:05 Dose: 1 ea Documented by: [id number] Morphine Sulfate (Morphine Sulfate 4 Mg/Ml 1 Ml Carp\\Vial) Confirm Administered Dose 4 mg .ROUTE .STK-MED ONE Stop: 12/11/20 21:50 Last Admin: 12/11/20 21:59 Dose: Not Given Documented by: [id number] Imaging Data Radiologist's Impression: Chest X-Ray 12/11/20 16:32 XR chest 1V portable CLINICAL HISTORY: weakness COMPARISON STUDY: October 07, 2020 FINDINGS: No pneumothorax. Stable complete opacification of the left hemithorax. Interval development of moderate right pleural effusion. Stable midline shift to the left. Atelectasis or infiltrate are seen at the right base and new since prior study. Cardiomediastinal silhouette is obscured. No significant pulmonary vascular congestion.. Osseous structures: unremarkable Stable position of left-sided sided double lead pacemaker. IMPRESSION: 1. Interval development of moderate right pleural effusion associated with atelectasis or infiltrate at the right base. 2. Redemonstration of complete opacification of the left hemithorax. ACT 112: Negative or not required by law. The above report was generated using voice recognition software. It may contain grammatical, syntax or spelling errors. Electronically signed by: Fiona Conner DO 12/11/2020 5:24 PM Discharge Plan Visit Data Chief Complaint: Abnormal Labs/Diagnostic Testing Stated Complaint: Abnormal labs ED Provider: Chace Caldera Discharge Problem: Chronic hyponatremia, Breast cancer metastasized to brain, Atelectasis of left lung, Malignant pleural effusion Patient Disposition: Admitted As Inpatient Discharge Instructions Interventions: ED Discharge Assessment Last Done: 12/11/20 19:58
[2020-12-11 17:05] LABS: Basophils # (auto) 0.01 K/uL (0-0.2); Basophils % (auto) 0.1 %; Eosinophils # (auto) 0.04 K/uL (0-0.5); Eosinophils % (auto) 0.6 %; Immature Granulocytes # (auto) 0.03 K/uL (0.00-0.02); Immature Granulocytes % (auto) 0.4 %; Lymphocytes # (auto) 0.39 K/uL (1.2-3.4); Lymphocytes % (auto) 5.8 %; Mean Corpuscular Hemoglobin 29.6 pg (25-34); Mean Corpuscular Hgb Conc 35.3 g/dL (32-36); Mean Corpuscular Volume 83.7 fL (80-100); Mean Platelet Volume 8.3 fL (7.4-10.4); Monocytes # (auto) 0.67 K/uL (0.11-0.59); Monocytes % (auto) 9.9 %; Neutrophils # (auto) 5.62 K/uL (1.4-6.5); Neutrophils % (auto) 83.2 %; Platelet Count 411 K/uL (130-400); RDW Coefficient of Variation 19.2 % (11.5-14.5); RDW Standard Deviation 55.8 fL (36.4-46.3); Red Blood Count 4.06 M/uL (4.2-5.4); White Blood Count 6.76 K/uL (4.8-10.8)
--- NOTE | 2020-12-11 17:26 | XRay Report ---
XR chest 1V portable CLINICAL HISTORY: weakness COMPARISON STUDY: October 07, 2020 FINDINGS: No pneumothorax. Stable complete opacification of the left hemithorax. Interval development of moderate right pleural effusion. Stable midline shift to the left. Atelectasis or infiltrate are seen at the right base and new since prior study. Cardiomediastinal silhouette is obscured. No significant pulmonary vascular congestion.. Osseous structures: unremarkable Stable position of left-sided sided double lead pacemaker. IMPRESSION: 1. Interval development of moderate right pleural effusion associated with atelectasis or infiltrate at the right base. 2. Redemonstration of complete opacification of the left hemithorax. ACT 112: Negative or not required by law. The above report was generated using voice recognition software. It may contain grammatical, syntax o r spelling errors. Electronically signed by: Fiona Conner DO 12/11/2020 5:24 PM
[2020-12-11 17:28] LABS: Albumin Level 2.3 gm/dl (3.4-5.0); BUN Creatinine Ratio 25.3 (10-20); Bilirubin Direct 0.1 mg/dl (0-0.2); Calcium 8.5 mg/dl (8.5-10.1); Est GFR (African American) 119.3 ml/min; Magnesium 2.2 mg/dl (1.8-2.4); Potassium 4.1 mmol/L (3.5-5.1)
[2020-12-11 17:34] LABS: Albumin Globulin Ratio 0.5 (0.9-2); Bilirubin,Total 0.3 mg/dl (0.2-1); Globulin 4.2 gm/dl (2.5-4.0); Phosphorus 1.6 mg/dl (2.5-4.9); Thyroid Stimulating Hormone 38.3 uIu/ml (0.300-4.500); Total Protein 6.5 gm/dl (6.4-8.2)
[2020-12-11] MEDS ORDERED: SODIUM CHLORIDE 3 % 100mL BOLUS (from 3% 500mL bag) IV ONE (17:45)
[2020-12-11 17:48] LABS: T4 Free Thyroxine 1.31 ng/dl (0.8-1.6)
[2020-12-11] MEDS ORDERED: MAGNESIUM HYDROXIDE SUSP 30 ML UDC PO PRN (18:40)
[2020-12-11] MEDS ORDERED: ONDANSETRON INJ 2 MG/ML 2 ML VIAL IV PRN (18:40)
[2020-12-11] MEDS ORDERED: POLYETHYLENE (MIRALAX) 17 GM PACK PO PRN (18:40)
[2020-12-11] MEDS ORDERED: ALUMINUM/MAGNESIUM SUSP 30 ML UDC PO PRN (18:40)
[2020-12-11] MEDS ORDERED: ACETAMINOPHEN 325 MG TAB PO PRN (18:40)
[2020-12-11] MEDS ORDERED: ENOXAPARIN INJ 30 MG/0.3 ML SYR SQ SCH (18:45)
--- NOTE | 2020-12-11 19:02 | Communication Note ---
Date of Service: December 11, 2020 Patient seen and examined care coordinated with Claudia Nicholas PA-C Is a 70-year-old female with past medical history of left breast cancer with metastatic disease to bone/brain and lung. Status post chemo and radiation treatment She has complete white out of her left lung for metastatic disease, Has a Pleurx catheter on the right lung, which at home been draining every other day, Came to ER with complaint of worsening of fatigue weakness, shortness of breath, Lab work shows severe hyponatremia with sodium of 113 Physical exam: Brief General: Chronically ill-appearing female currently no apparent distress HEENT anicteric sclera Lungs: Diminished breath sound on left, Rales noted on the right as Pleurx catheter on the right Extremity, trace bilateral edema: Patient also has swelling/lymphedema of left upper arm Neuro: Awake and alert, no focal deficit noted Assessment and plan: Hyponatremia: 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 Patient reports of drinking approximately 2 L of fluid at home to keep herself hydrated Sodium 113, with no confusion or obtundation Patient given hypertonic saline 3% 600 mL in ER We will continue fluid restriction 1500 mL a day Follow BMP every 4 hours, to monitor slow correction of hyponatremia Nephrology consult requested Metastatic pleural effusion Continue to drainage Pleurx catheter on right side daily do not drain more than 400 cc We will consult pulmonology if there is issue with Pleurx catheter and drainage CODE STATUS: Full code discussed with patient DVT prophylaxis: SCD and teds, avoid pharmacological anticoagulation as patient has metastatic brain lesion Disposition: Expected to be discharged home when medically stable, plan of care discussed with patient Please refer to further documentation by Merry Nicholas PA-C for discussion of other medical issues Jacquelin Estevez MD
--- NOTE | 2020-12-11 19:18 | History & Physical Report ---
Date of Service December 11, 2020 Assessment & Plan (1) Hyponatremia: Acute on Chronic hyponatremia Pt is 70 y/o F with PMH left breast CA initially diagnosed in 2011 now with recurrence in 2020 with bony metastasis and brain mets, recurrent pleural effusion, current Pleurx catheter to right draining every other day presented to ER for abnormal labs-hyponatremia. Patient had outpatient labs today and was found to have sodium of 111 (sodium in 11/2020 was 127) In ER patient afebrile, vitals stable. 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 Muhammad. Follows with oncology-Dr. Kay Has Pleurx catheter in place. Currently drains every 2 days. Has been getting 400 mL drainage -We will drain daily for now, no more than 400 mL -Monitor closely, if no improvement or worsening consider pulmonology consult Seizure d/o in setting of brain mets s/p neurosurgical intervention 07/25 to brain mets -continue vimpat/keppra, no recent seizure -follows [facility] Neurology (5) Hypothyroidism: -Continue levothyroxine (6) Extremity edema: Chronic left upper extremity edema, chronic bilateral lower extremity edema No increased edema, no erythema or discomfort -Monitor (7) Pacemaker: EKG paced rhythm DVT Prophylaxis -SCDs for now Full Code as per discussion with pt and pt's Follows with Dr Kay for routine care Pt was seen and care coordinated with Dr Estevez. See addendum History of Present Illness Chief Complaint: Abnormal labs Primary Care Provider: Katlin Kay MD Pt is 70 y/o F with PMH left breast CA initially diagnosed in 2011 now with recurrence in 2020 with bony metastasis and brain mets, recurrent pleural effusion, current Pleurx catheter to right draining every other day presented to ER for abnormal labs-hyponatremia. Patient had outpatient labs today and was found to have sodium of 111 (sodium in 11/2020 was 127) and patient was referred to ER. Patient reports chronic shortness of breath, chronic back pain, chronic progressive weakness. Reports poor appetite at baseline. Drinks 2 L water a day, cup of tea. states patient mental status seems to be at baseline, sometimes has forgetfulness and he needs to help her with her pills. Has chronic left upper extremity edema, bilateral lower extremity edema with left lower extremity with worse edema. Denies any increased edema, redness, extremity pain. Has started seeing physical therapist for lymphedema therapy. Patient states today she vomited once and had a loose bowel movement. She was having constipation and took milk of magnesia. Patient Xeloda has been on hold for 2 weeks, is supposed to restart on 12/15 per oncology. She reports difficulty with swallowing and is to see speech therapy. Denies fever/chills, diaphoresis, hematemesis, melena, hematochezia, ST[place], syncope, vision changes, neck pain, CP, palpitations, cough, sore throat, otalgia, rhinorrhea, abdominal pain, paresthesias new rashes, hematuria, dysuria. Allergies Allergy/AdvReac Type Severity Reaction Status Date / Time No Known Allergies Allergy Verified 12/11/20 17:11 Home Medications Medication Instructions Recorded Confirmed Type levothyroxine 100 mcg PO QAM 07/10/19 12/11/20 History denosumab 120 mg/1.7 mL (70 mg/mL) 120 mg SQ MONTHLY ml 07/25/19 12/11/20 History subcutaneous solution fluticasone propionate 50 1 sprays INTRANASAL QAM ml 08/12/19 12/11/20 History mcg/actuation nasal spray,suspension potassium phosphate, monobasic 500 500 mg PO BID tab 01/14/20 12/11/20 History mg soluble tablet capecitabine 500 mg tablet 500 mg PO BID tab 11/03/20 12/11/20 History lacosamide [Vimpat] 150 mg PO QAM 12/11/20 12/11/20 History lacosamide [Vimpat] 200 mg PO QPM 12/11/20 12/11/20 History levetiracetam 1,700 mg PO BID 12/11/20 12/11/20 History ondansetron 8 mg TRANSLINGUAL Q8H PRN 12/11/20 12/11/20 History urea 1 applic TOPICAL BID 12/11/20 12/11/20 History Past Med/Surg History Medical History (Updated 12/11/20 @ 19:47 by Merry Nicholas PA-C) Brain edema Breast cancer "s/p left mastectomy and chemotherapy" Complex partial status epilepticus Extremity edema Focal seizures GERD (gastroesophageal reflux disease) H/O radioactive iodine thyroid ablation Hypothyroidism Pacemaker Since 2014 Pleural effusion Pneumothorax Second degree heart block Surgical History H/O left mastectomy "10/16/11 with sentinel lymph node bx" History of esophagogastroduodenoscopy (EGD) History of hysteroscopy S/P cholecystectomy Family History Mother , age 87 bowel blockage and heart diease No problems noted. Father , age 81 unknown type of cancer No problems noted. Brother No problems noted. Brother No problems noted. Sister No problems noted. Sister Cancer skin cancer Daughter No problems noted. Daughter No problems noted. 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 Feels Safe at Home: Yes Childhood Exposure to Second-Hand Smoke: Yes caffeine: Yes (3 cups per day green tea 3 times per week) during the past year weight has: decreased > 10 lbs Dental Care, Regularly: Yes Physical Activity Frequency: Daily Physical Activity Frequency Comment: daily walks Seatbelt Use: always Sunscreen Use: Yes Assistive Devices: None Review of Systems Review of Systems: All systems reviewed & are unremarkable except as noted in HPI & below Physical Exam Physical Exam: General: no acute distress, thin chronically ill appearing fem davie Head: normocephalic, atraumatic Eyes: PERRL, EOM's intact, conjunctiva non-injected, anicteric ENT: normal inspection external ears, nose, mucous membranes moist Neck: supple, trachea midline Lungs: diminished to no breath sounds left lung, right lung diminished breath sounds base, otherwise clear CV: RRR, no murmur, no pretibial edema Abd: normal BS, soft, non-tender Ext: no cyanosis, no erythema, no calf tenderness, no upper extremity tenderness. LUE + edema. BLE 3+edema Neuro: A&O x 3, no focal deficits noted, normal affect Skin: warm, dry Results & Data Results & Data ([facility]) Vital Signs (Past 12 Hours) Vital Signs Temp Pulse Resp BP Pulse Ox 12/11/20 19:00 89 21 107/71 97 12/11/20 18:00 91 H 18 118/72 96 12/11/20 17:50 90 20 97 12/11/20 17:40 88 16 96 12/11/20 17:30 89 17 96 12/11/20 17:20 91 H 20 96 12/11/20 17:10 92 H 20 96 12/11/20 17:02 89 20 96 12/11/20 16:00 89 15 119/75 96 12/11/20 15:34 36.5 C 88 18 116/77 96 Laboratory Results Short CBC 12/11/20 Range/Units 16:47 WBC 6.76 (4.8-10.8) K/uL Hgb 12.0 (12.0-16.0) g/dL Hct 34.0 L (37-47) % Plt Count 411 H (130-400) K/uL BMP 12/11/20 16:47 Sodium 113 L* Potassium 4.1 Chloride 78 L Carbon Dioxide 27 BUN 11 Creatinine 0.45 L Glucose 118 H Calcium 8.5 Liver Function 12/11/20 Range/Units 16:47 Total Bilirubin 0.3 (0.2-1) mg/dl Direct Bilirubin 0.1 (0-0.2) mg/dl AST 27 (15-37) U/L ALT 15 (12-78) U/L Alkaline Phosphatase 138 H (45-117) U/L Albumin 2.3 L (3.4-5.0) gm/dl Diagnostic Findings Chest X-Ray 12/11/20 16:32 XR chest 1V portable CLINICAL HISTORY: weakness COMPARISON STUDY: October 07, 2020 FINDINGS: No pneumothorax. Stable complete opacification of the left hemithorax. Interval development of moderate right pleural effusion. Stable midline shift to the left. Atelectasis or infiltrate are seen at the right base and new since prior study. Cardiomediastinal silhouette is obscured. No significant pulmonary vascular congestion.. Osseous structures: unremarkable Stable position of left-sided sided double lead pacemaker. IMPRESSION: 1. Interval development of moderate right pleural effusion associated with atelectasis or infiltrate at the right base. 2. Redemonstration of complete opacification of the left hemithorax. ACT 112: Negative or not required by law. The above report was generated using voice recognition software. It may contain grammatical, syntax or spelling errors. Electronically signed by: Fiona Conner DO 12/11/2020 5:24 PM Code Status & VTE Plan VTE Prophylaxis Plan VTE Prophylaxis will be ordered: Yes Supervising Physician Co-Signing Physician Notes Date of Service: December 11, 2020 Patient seen and examined care coordinated with Claudia Nicholas PA-C Is a 70-year-old female with past medical history of left breast cancer with metastatic disease to bone/brain and lung. Status post chemo and radiation treatment She has complete white out of her left lung for metastatic disease, Has a Pleurx catheter on the right lung, which at home been draining every other day, Came to ER with complaint of worsening of fatigue weakness, shortness of breath, Lab work shows severe hyponatremia with sodium of 113 Physical exam: Brief General: Chronically ill-appearing female currently no apparent distress HEENT anicteric sclera Lungs: Diminished breath sound on left, Rales noted on the right as Pleurx catheter on the right Extremity, trace bilateral edema: Patient also has swelling/lymphedema of left upper arm Neuro: Awake and alert, no focal deficit noted Assessment and plan: Hyponatremia: 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 Patient reports of drinking approximately 2 L of fluid at home to keep herself hydrated Sodium 113, with no confusion or obtundation Patient given hypertonic saline 3% 600 mL in ER We will continue fluid restriction 1500 mL a day Follow BMP every 4 hours, to monitor slow correction of hyponatremia Nephrology consult requested Metastatic pleural effusion Continue to drainage Pleurx catheter on right side daily do not drain more than 400 cc We will consult pulmonology if there is issue with Pleurx catheter and drainage CODE STATUS: Full code discussed with patient DVT prophylaxis: SCD and teds, avoid pharmacological anticoagulation as patient has metastatic brain lesion Disposition: Expected to be discharged home when medically stable, plan of care discussed with patient Please refer to further documentation by Merry Nicholas PA-C for discussion of other medical issues Jacquelin Estevez MD (1) Breast cancer metastasized to brain Laterality: right Qualified Code(s): C50.911 - Malignant neoplasm of unspecified site of right female breast; C79.31 - Secondary malignant neoplasm of brain
[2020-12-11 20:53] LABS: BUN Creatinine Ratio 28.1 (10-20); Calcium 8.2 mg/dl (8.5-10.1); Creatinine Clr Calc Pharmacy 123.7 ml/min; Est GFR (African American) 128.4 ml/min; Est GFR (Non-African American) 110.8 ml/min; Potassium 4.1 mmol/L (3.5-5.1)
[2020-12-11] MEDS ORDERED: LACOSAMIDE 50 MG TABLET PO SCH (21:00)
[2020-12-11] MEDS ORDERED: MoRPHine SULFATE 4 MG/ML 1 ML CARP\\VIAL ONE (21:49)
[2020-12-11] MEDS: MoRPHine SULFATE 4 MG/ML 1 ML CARP\\VIAL IV PRN (21:54)
[2020-12-11] MEDS: levETIRAcetam ORAL SOLN 100MG/ML PO SCH (21:55)
[2020-12-11] MEDS: POT PHOSPHATE MONOBASIC W/ SOD TAB PO SCH (21:58)
[2020-12-11] MEDS: SODIUM CHLORIDE 3 % 150 ML IV SCH (22:38)
[2020-12-12 00:39] LABS: BUN Creatinine Ratio 22.9 (10-20); Calcium 7.8 mg/dl (8.5-10.1); Creatinine Clr Calc Pharmacy 101.2 ml/min; Est GFR (African American) 120.2 ml/min; Est GFR (Non-African American) 103.7 ml/min; Potassium 3.6 mmol/L (3.5-5.1)
[2020-12-12 01:26] LABS: BUN Creatinine Ratio 23.7 (10-20); Creatinine Clr Calc Pharmacy 103.6 ml/min; Est GFR (African American) 121.1 ml/min; Est GFR (Non-African American) 104.5 ml/min; Potassium 3.8 mmol/L (3.5-5.1)
[2020-12-12] MEDS: SODIUM CHLORIDE 3 % 150 ML IV SCH (03:04)
[2020-12-12 05:12] LABS: Appearance Urine Clear (Clear); Bacteria Urine Automated 3+ (Negative); Bilirubin Urine Negative (Negative); Blood Urine Negative (Negative); Color Urine Yellow; Epithelial Cell Urine Auto 0-5 /lpf (0-5); Glucose Urine UA Negative (Negative); Ketones Urine Negative (Negative); Leukocyte Esterase Urine 1+ (Negative); Nitrite Urine Negative (Negative); Protein Urine Negative (Negative); RBC Urine Automated 0-4 /hpf (0-4); Specific Gravity Urine 1.018 (1.000-1.030); Urobilinogen Urine Negative (Negative); pH Urine 5.5 (4.5-7.5)
[2020-12-12] MEDS: LEVOTHYROXINE SODIUM 100 MCG TABLET PO SCH (06:19)
[2020-12-12 06:21] LABS: Hematocrit (blood only) 34.7 % (37-47); Hemoglobin 12.2 g/dL (12.0-16.0); Mean Corpuscular Hemoglobin 30.2 pg (25-34); Mean Corpuscular Hgb Conc 35.2 g/dL (32-36); Mean Corpuscular Volume 85.9 fL (80-100); Mean Platelet Volume 9.5 fL (7.4-10.4); Platelet Count 309 K/uL (130-400); RDW Coefficient of Variation 19.3 % (11.5-14.5); RDW Standard Deviation 59.1 fL (36.4-46.3); Red Blood Count 4.04 M/uL (4.2-5.4)
[2020-12-12 06:41] LABS: BUN Creatinine Ratio 30.2 (10-20); Creatinine Clr Calc Pharmacy 128.8 ml/min; Est GFR (African American) 132.1 ml/min; Potassium 3.9 mmol/L (3.5-5.1)
--- NOTE | 2020-12-12 07:36 | Electrocardiogram Report ---
Test Reason : Blood Pressure : / mmHG Vent. Rate : 089 BPM Atrial Rate : 089 BPM P-R Int : 222 ms QRS Dur : 148 ms QT Int : 410 ms P-R-T Axes : 037 -48 115 degrees QTc Int : 498 ms Atrial-sensed ventricular-paced rhythm with prolonged AV conduction Abnormal ECG When compared with ECG of 06-OCT-2020 10:15, No significant change was found Confirmed by Placido Workman ([id number]) on 12/12/2020 7:36:09 AM Referred By: Katlin Kay Confirmed By:Dharmesh Workman
[2020-12-12] MEDS: levETIRAcetam ORAL SOLN 100MG/ML PO SCH ×2 (08:15→21:34)
[2020-12-12] MEDS: FLUTICASONE PROPIONATE NA SPR 16 GM BTL NAE SCH (08:15)
[2020-12-12] MEDS: POT PHOSPHATE MONOBASIC W/ SOD TAB PO SCH ×2 (08:16→21:36)
[2020-12-12] MEDS ORDERED: LACOSAMIDE 50 MG TABLET PO SCH (09:00)
[2020-12-12 09:23] LABS: BUN Creatinine Ratio 23.6 (10-20); Calcium 8.1 mg/dl (8.5-10.1); Creatinine Clr Calc Pharmacy 106.3 ml/min; Potassium 3.8 mmol/L (3.5-5.1)
[2020-12-12] MEDS ORDERED: SODIUM CHLORIDE 3 % 500 ML IV SCH (09:45)
[2020-12-12] MEDS ORDERED: SODIUM CHLORIDE 3 % 100mL BOLUS (from 3% 500mL bag) IV ONE (09:45)
--- NOTE | 2020-12-12 09:49 | Hospitalist Progress Note ---
Date of Service December 12, 2020 Assessment & Plan (1) Hyponatremia: Acute on Chronic hyponatremia History of metastatic breast cancer with mets to brain, recurrent malignant pleural effusion Pt is 70 y/o F with PMH left breast CA initially diagnosed in 2011 now with recurrence in 2019 with bony metastasis and brain mets, recurrent pleural effusion, current Pleurx catheter to right draining every other day presented to ER for abnormal labs-hyponatremia. Patient had outpatient labs today and was found to have sodium of 111 (sodium in 11/2020 was 127) On admission. Na: 113, serum osmolality: 237 Hyponatremia likely due to brain mets/SIADH and possible combination of dehydra tion -Patient was given 3% normal saline Appreciate input from nephrology, Continue 3% normal saline at the rate of 30 mL/h currently ordered for 500 cc Check BMP every 2 hours, goal of correction 45 mmol in next 24 hours This morning sodium 115 Goal of sodium increment 119 120 end of the day Hypertonic sodium will be discontinued if rapid correction noted -Continue fluid restriction 1500 mL (2) Breast cancer metastasized to brain: Has chronic diplopia, denies of any headache, does not have any dizzy spell or lightheadedness at present (3) Malignant pleural effusion: (4) Atelectasis of left lung: Follows with Septic Tank Installer @ [facility] Dr. Muhammad. Follows with oncology-Dr. Kay Has Pleurx catheter in place. Currently drains every 2 days. Has been getting 400 mL drainage Continue Pleurx catheter drainage as per home schedule -Monitor closely, -Patient was seen by Dr. Harvey pulmonology in the past for thoracic centesis Currently follows with pulmonology at [facility] Any symptom of worsening of shortness of breath, or respiratory distress consider pulmonology consult Seizure d/o in setting of brain mets s/p neurosurgical intervention 07/25 to brain mets -continue vimpat/keppra, no recent seizure -follows [facility] Neurology -Chronic diplopia with stable symptoms (5) Hypothyroidism: -Continue levothyroxine (6) Extremity edema: Chronic left upper extremity edema, chronic bilateral lower extremity edema No increased edema, no erythema or discomfort -Monitor (7) Pacemaker: EKG paced rhythm DVT Prophylaxis -SCDs for now Full Code as per discussion with pt and pt's Disposition: Expected to be discharged home when medically stable, PT OT evaluation requested prior to discharge will be updated over phone. Admission and Anticipated Discharge Date Admission Date: December 11, 2020 Subjective Patient seen in room 288 bed 2: Follow-up visit for hyponatremia, metastatic breast cancer, metastatic pleural effusion. Patient appears to be much more spirited today, Had an uneventful night, Denies of any headache, has chronic blurred vision from the brain mets, Offers no new complaints, no cough no shortness of breath, no chest pain or dyspnea on exertion No hypoxia remains in room air Denies of any abdominal pain, no weakness or paresthesia in extremities, Reports of having fatigue, weakness which has been chronic has not noticed much improvement on that symptom since yesterday No confusion or sedation, patient is awake alert appropriately, very pleasant Review of Systems Review of Systems: All systems reviewed & are unremarkable except as noted in Subjective Physical Exam Constitutional: WD/WN, vitals as above + ill appearing (Very pleasant, conversing); no acute distress Eyes: + anicteric sclerae (Chronic blurred vision secondary to brain mets) ENMT: external ear and nose normal, oropharynx normal Neck: trachea midline, no thyromegaly Respiratory: Auscultation: + diminished lung sounds, + crackles (Mostly on right side, has right sided Pleurx catheter) and + rales Cardiovascular: Rate/Rhythm: regular rate and regular rhythm Extremities: + edema (Bilateral +1/2 pitting edema no calf tenderness) Gastrointestinal (Abdomen): Inspection/Auscultation: normal bowel sounds Percussion/Palpation: abdomen soft; abdomen nontender Musculoskeletal: Generalized weakness. Skin: no rashes, warm and dry Neurologic: PERRL, EOMI, accommodation nl, no face palsy, no dysarthria (Chronic blurred vision for metastatic brain mets, generalized weakness) Psychiatric: A+Ox3, euthymic affect Results & Data Results & Data ([facility]) Vital Signs (Past 12 Hours) Vital Signs Temp Pulse Pulse Resp BP Pulse Ox 12/12/20 07:45 91 H 12/12/20 07:42 36.6 C 87 18 100/67 95 12/12/20 04:01 36.5 C 85 18 92/62 L 92 12/12/20 01:53 105 H 12/11/20 23:46 36.3 C L 86 16 103/67 97 12/11/20 23:32 91 H
--- NOTE | 2020-12-12 10:23 | Nephrology Consultation ---
Date of Consultation December 12, 2020 Assessment & Plan (1) Hyponatremia: Patient with hyponatremia likely due to hypovolemia. Serum osmolality of 237. Urine osmolality 429 and urine sodium less than 5. 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 Admission sodium was 113. It has improved to 115 this morning. Rate of correction is 6 per 24 hours. -3% saline at 30 mL/h for about 6 hours. -Check sodium every 2 hours, goal is 119 x 4 p.m. today and 125 x 4 p.m. tomorrow (2) Breast cancer metastasized to brain: Patient with metastatic breast cancer to brain, bones and malignant pleura l effusion. Patient has seizures on Keppra. She has somnolence but this could also be due to medications. I do not think hyponatremia is a major contributor to neuro changes. We will continue slow correction of the sodium and monitor mental status. History of Present Illness Reason for Consultation: Hyponatremia Requesting Physician: Jacquelin Estevez MD Attending Physician: Jacquelin Estevez MD History of Present Illness This is 70-year-old female with history of metastatic breast cancer to brain and bones initially diagnosed in 2011, then recurrence in 2019 status post chemo and radiation also with malignant pleural effusion with a Pleurx catheter who was admitted on 12/11/2020 with sodium of 111 checked outpatient. Patient reports weakness for about 2 weeks. She has had intermittent vomiting and constipation. She was reportedly drinking about 1.5 L of fluids daily. In the emergency room sodium was 113. Overnight she received 3% saline and sodium this morning is 115. Her breathing is labored but that is baseline. She has complete whiteout of the left lung on chest x-ray. She is not requiring oxygen. Serum osmolality was 237, urine osmolality 429. Urine sodium this morning less than 5. Her left side of the body is edematous chronically. She complains of daytime sleepiness which she attributes to Keppra Allergies Allergy/AdvReac Type Severity Reaction Status Date / Time No Known Allergies Allergy Verified 12/11/20 17:11 Home Medications Medication Instructions Recorded Confirmed Type levothyroxine 100 mcg PO QAM 07/10/19 12/11/20 History denosumab 120 mg/1.7 mL (70 mg/mL) 120 mg SQ MONTHLY ml 07/25/19 12/11/20 History subcutaneous solution fluticasone propionate 50 1 sprays INTRANASAL QAM ml 08/12/19 12/11/20 History mcg/actuation nasal spray,suspension potassium phosphate, monobasic 500 500 mg PO BID tab 01/14/20 12/11/20 History mg soluble tablet capecitabine 500 mg tablet 500 mg PO BID tab 11/03/20 12/11/20 History lacosamide [Vimpat] 150 mg PO QAM 12/11/20 12/11/20 History lacosamide [Vimpat] 200 mg PO QPM 12/11/20 12/11/20 History levetiracetam 1,700 mg PO BID 12/11/20 12/11/20 History ondansetron 8 mg TRANSLINGUAL Q8H PRN 12/11/20 12/11/20 History urea 1 applic TOPICAL BID 12/11/20 12/11/20 History Patient History Medical History Brain edema Breast cancer "s/p left mastectomy and chemotherapy" Complex partial status epilepticus Extremity edema Focal seizures GERD (gastroesophageal reflux disease) H/O radioactive iodine thyroid ablation Hypothyroidism Pacemaker Since 2014 Pleural effusion Pneumothorax Second degree heart block Surgical History H/O left mastectomy "10/16/11 with sentinel lymph node bx" History of esophagogastroduodenoscopy (EGD) History of hysteroscopy S/P cholecystectomy Family History Mother , age 87 bowel blockage and heart diease No problems noted. Father , age 81 unknown type of cancer No problems noted. Brother No problems noted. Brother No problems noted. Sister No problems noted. Sister Cancer skin cancer Daughter No problems noted. Daughter No problems noted. 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 Feels Safe at Home: Yes Childhood Exposure to Second-Hand Smoke: Yes caffeine: Yes (3 cups per day green tea 3 times per week) during the past year weight has: decreased > 10 lbs Dental Care, Regularly: Yes Physical Activity Frequency: Daily Physical Activity Frequency Comment: daily walks Seatbelt Use: always Sunscreen Use: Yes Assistive Devices: Walker Review of Systems Review of Systems: All systems reviewed & are unremarkable except as noted in HPI & below Physical Exam Physical Exam: General exam: Appears comfortable, no acute distress HEENT: Pupils are equal and reactive to light Neck: No JVD, neck is supple trachea is midline Respiratory system: Clear breath sounds bilaterally. Gastrointestinal: Abdomen is soft, non distended, non tender, bowel sounds are present CVS: Regular rate and rhythm. No murmurs, rubs or gallops Musculoskeletal: No joint or muscle tenderness Extremities: Non tender, 1+ edema left greater than right, peripheral pulses are present Neuro: Oriented, no tremors, no focal neurological deficits Skin: No rashes Results & Data ([facility]) Vital Signs (Past 12 Hours) Vital Signs Temp Pulse Pulse Resp BP Pulse Ox 12/12/20 07:45 91 H 12/12/20 07:42 36.6 C 87 18 100/67 95 12/12/20 04:01 36.5 C 85 18 92/62 L 92 12/12/20 01:53 105 H 12/11/20 23:46 36.3 C L 86 16 103/67 97 12/11/20 23:32 91 H Laboratory Results 12/12/20 08:40 12/11/20 12/11/20 12/12/20 16:47 16:47 06:03 WBC 6.76 6.10 RBC 4.06 L 4.04 L MCV 83.7 85.9 MCH 29.6 30.2 MCHC 35.3 35.2 RDW Std Deviation 55.8 H 59.1 H RDW Coeff of Mayuri 19.2 H 19.3 H Plt Count 411 H 309 MPV 8.3 9.5 Phosphorus 1.6 L Albumin 2.3 L
[2020-12-12] MEDS ORDERED: SODIUM PHOSPHATE 3 MMOL/1 ML INFUSION IV STA (10:31)
[2020-12-12] MEDS ORDERED: SODIUM PHOSPHATE 6 MMOL in SODIUM CHLORIDE 0.9% 250 ML IV ONE (11:00)
[2020-12-12 13:12] LABS: BUN Creatinine Ratio 26.5 (10-20); Calcium 7.6 mg/dl (8.5-10.1); Est GFR (African American) 130.9 ml/min; Est GFR (Non-African American) 112.9 ml/min; Potassium 3.9 mmol/L (3.5-5.1)
--- NOTE | 2020-12-12 15:34 | Communication Note ---
Date of Service: December 12, 2020 Lab reviewed Na 124 on 14: 44 lab ordered to DC hypertonic Saline ( 3% NSS) nephrology updated continue to monitor BMP q4 hrs Jacquelin estrada MD
[2020-12-12 17:20] LABS: BUN Creatinine Ratio 25.1 (10-20); Calcium 7.7 mg/dl (8.5-10.1); Creatinine Clr Calc Pharmacy 114.9 ml/min; Est GFR (African American) 127.3 ml/min; Est GFR (Non-African American) 109.8 ml/min; Potassium 3.7 mmol/L (3.5-5.1)
[2020-12-12] MEDS ORDERED: SENNA 8.6 MG TAB PO STA (19:56)
[2020-12-12 21:36] LABS: BUN Creatinine Ratio 26.2 (10-20); Calcium 7.6 mg/dl (8.5-10.1); Est GFR (African American) 130.9 ml/min; Est GFR (Non-African American) 112.9 ml/min; Potassium 3.6 mmol/L (3.5-5.1)
[2020-12-12] MEDS: VIMPAT 200 MG PO SCH (21:51)
[2020-12-13 01:08] LABS: BUN Creatinine Ratio 25.4 (10-20); Calcium 7.4 mg/dl (8.5-10.1); Creatinine Clr Calc Pharmacy 132.9 ml/min; Est GFR (African American) 133.5 ml/min; Est GFR (Non-African American) 115.2 ml/min; Potassium 3.8 mmol/L (3.5-5.1)
[2020-12-13] MEDS: LEVOTHYROXINE SODIUM 100 MCG TABLET PO SCH (06:39)
[2020-12-13 08:17] LABS: Magnesium 2.3 mg/dl (1.8-2.4); Phosphorus 2.1 mg/dl (2.5-4.9)
[2020-12-13] MEDS: POT PHOSPHATE MONOBASIC W/ SOD TAB PO SCH ×2 (10:01→21:12)
[2020-12-13] MEDS: FLUTICASONE PROPIONATE NA SPR 16 GM BTL NAE SCH (10:02)
[2020-12-13] MEDS: levETIRAcetam ORAL SOLN 100MG/ML PO SCH ×2 (10:02→21:11)
[2020-12-13] MEDS ORDERED: SODIUM CHLORIDE 3 % 500 ML IV SCH (10:45)
--- NOTE | 2020-12-13 11:04 | Nephrology Progress Note ---
Date of Service December 13, 2020 Assessment & Plan (1) Hyponatremia: Patient with hypovolemic hyponatremia. Serum osmolality of 237. Urine osmolality 429 and urine sodium less than 5. 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 Admission sodium was 113; initially improvement stalled; then improved to 124 yesterday afternoon on 3% saline; 3% infusion stopped 1500 yesterday. Today AM serum sodium has dropped back down to 118. -resumed 3% soldium with q4h bmp and hold parameter to a) stop infusion if sNa > 123 and b) contact covering hospitalist and stop infusion if q4h bmp no longer ordered -goal sNa is 124 by tomorrow AM -maintain K of about 4 -continue FR 1.5L (2) Breast cancer metastasized to brain: Patient with metastatic breast cancer to brain, bones and malignant pleural effusion. Patient has seizures on Keppra. Somnolence improved today. initial impression that hyponatremia not a major contributor to neuro changes. We will continue slow correction of the sodium and monitor mental status. Admission and Anticipated Discharge Date Admission Date: December 11, 2020 Subjective sNa dropped quickly w/o 3% saline which was restarted w/ hold parameters, freque nt labs this am after stopping yesterday pM. pt with fatigue; poor po b/c food tastes bad to her; no sob; no change in chronic L sided edema Review of Systems Review of Systems: All systems reviewed & are unremarkable except as noted in Subjective Physical Exam Constitutional: well developed, + frail appearing and cooperative; no acute distress Eyes: EOM intact bilaterally ENMT: Ears: no external ear abnormality Nose: no external nose abnormality Mouth: + dry oral mucous membranes Neck: no nuchal rigidity Respiratory: normal respiratory effort Auscultation: lungs clear to auscultation bilaterally (on RA) and + diminished lung sounds Cardiovascular: Rate/Rhythm: regular rate and regular rhythm Extremities: + edema (LLE and LUE edema > RLE ) Gastrointestinal (Abdomen): Inspection/Auscultation: normal bowel sounds Percussion/Palpation: abdomen soft; abdomen nontender and no guarding Musculoskeletal: Extremities: strength 5/5 throughout Skin: no rashes, warm and dry Neurologic: lopez, fluent speech, no tremor; generalized weakness Psychiatric: Orientation: alert and oriented x 3 Speech: normal rate/rhythm/volume of speech Affect: + flat affect Results & Data ([facility]) Vital Signs (Past 12 Hours) Vital Signs Temp Pulse Pulse Resp BP Pulse Ox 12/13/20 07:42 36.3 C L 99 H 16 135/92 95 12/13/20 03:38 36.4 C L 89 18 120/82 95 12/13/20 01:06 87 12/12/20 23:52 36.5 C 90 18 120/81 96 Laboratory Results 12/12/20 06:03 12/13/20 16:13
[2020-12-13] MEDS: VIMPAT 150 MG PO SCH (11:09)
[2020-12-13 13:36] LABS: BUN Creatinine Ratio 22.6 (10-20); Calcium 7.5 mg/dl (8.5-10.1); Creatinine Clr Calc Pharmacy 121.7 ml/min; Est GFR (African American) 129.6 ml/min; Est GFR (Non-African American) 111.8 ml/min; Potassium 3.7 mmol/L (3.5-5.1)
[2020-12-13 16:59] LABS: BUN Creatinine Ratio 25.1 (10-20); Calcium 7.1 mg/dl (8.5-10.1); Creatinine Clr Calc Pharmacy 101.4 ml/min; Est GFR (African American) 122.1 ml/min; Est GFR (Non-African American) 105.3 ml/min; Potassium 4.3 mmol/L (3.5-5.1)
--- NOTE | 2020-12-13 18:00 | Hospitalist Progress Note ---
Date of Service December 13, 2020 Assessment & Plan (1) Hyponatremia: Acute on Chronic hyponatremia History of metastatic breast cancer with mets to brain, recurrent malignant pleural effusion Pt is 70 y/o F with PMH left breast CA initially diagnosed in 2011 now with recurrence in 2019 with bony metastasis and brain mets, recurrent pleural effusion, current Pleurx catheter to right draining every other day presented to ER for abnormal labs-hyponatremia. Patient had outpatient labs today and was found to have sodium of 111 (sodium in 11/2020 was 127) On admission. Na: 113, serum osmolality: 237 Hyponatremia likely due to brain mets/SIADH and possible combination of dehydra tion -Patient was given 3% normal saline Appreciate input from nephrology, given 3% IV NSS slow infusion 30 ml /hr Na level gradually increased to 124 in afternoon hypertonic Na solution discontinued overnight Na level decreased to 118 3% NSS IV restarted this AM , cont to monitor BMP , goal Na 124 in am -Continue fluid restriction 1500 mL (2) Breast cancer metastasized to brain: Has chronic diplopia, denies of any headache, does not have any dizzy spell or lightheadedness at present (3) Malignant pleural effusion: (4) Atelectasis of left lung: Follows with Enforcement Officer @ [facility] Dr. Muhammad. Follows with oncology-Dr. Kay Has Pleurx catheter in place. Currently drains every 2 days. Has been getting 400 mL drainage plurex catheter drained today , with almost 400 ml serosanguineous pleural effusion -Monitor closely, Seizure d/o in setting of brain mets s/p neurosurgical intervention 07/25 to brain mets -continue /keppra, no recent seizure -follows [facility] Neurology -Chronic diplopia with stable symptoms (5) Hypothyroidism: -Continue levothyroxine (6) Extremity edema: Chronic left upper extremity edema, chronic bilateral lower extremity edema No increased edema, no erythema or discomfort -Monitor (7) Pacemaker: EKG paced rhythm DVT Prophylaxis -SCDs for now Full Code as per discussion with pt and pt's Disposition: Expected to be discharged home when medically stable, PT OT evaluation requested prior to discharge updated at bedside . Admission and Anticipated Discharge Date Admission Date: December 11, 2020 Subjective Patient seen in room 288 bed 2: Follow-up visit for hyponatremia, metastatic breast cancer, metastatic pleural effusion. more tired and anxious today had to be moved to a different room middle of the night as roommate was delirious remains hyponatremic on 3% NSS infusion disappointed as she could not be discharged home today stable mental status , no fever or chills no SOB or cough appetite remains poor no nausea/vomiting or abdominal pain Review of Systems Review of Systems: All systems reviewed & are unremarkable except as noted in HPI & below Physical Exam Constitutional: WD/WN, vitals as above + ill appearing (Very pleasant, conversing); no acute distress Eyes: + anicteric sclerae (Chronic blurred vision secondary to brain mets) ENMT: external ear and nose normal, oropharynx normal Neck: trachea midline, no thyromegaly Respiratory: Auscultation: + diminished lung sounds, + crackles (Mostly on right side, has right sided Pleurx catheter) and + rales Cardiovascular: Rate/Rhythm: regular rate and regular rhythm Extremities: + edema (Bilateral +1/2 pitting edema no calf tenderness) Gastrointestinal (Abdomen): Inspection/Auscultation: normal bowel sounds Percussion/Palpation: abdomen soft; abdomen nontender Skin: no rashes, warm and dry Neurologic: PERRL, EOMI, accommodation nl, no face palsy, no dysarthria (Chronic blurred vision for metastatic brain mets, generalized weakness) Psychiatric: A+Ox3, euthymic affect Results & Data Results & Data ([facility]) Vital Signs (Past 12 Hours) Vital Signs Temp Pulse Resp BP Pulse Ox 12/13/20 15:57 36.4 C L 91 H 16 129/75 97 12/13/20 11:16 36.3 C L 90 16 109/76 96 12/13/20 07:42 36.3 C L 99 H 16 135/92 95
[2020-12-13 20:54] LABS: BUN Creatinine Ratio 22.5 (10-20); Calcium 7.5 mg/dl (8.5-10.1); Creatinine Clr Calc Pharmacy 101.4 ml/min; Est GFR (African American) 122.1 ml/min; Est GFR (Non-African American) 105.3 ml/min; Potassium 3.7 mmol/L (3.5-5.1)
[2020-12-13] MEDS: VIMPAT 200 MG PO SCH (21:22)
[2020-12-14 00:09] LABS: BUN Creatinine Ratio 29.7 (10-20); Calcium 7.3 mg/dl (8.5-10.1); Creatinine Clr Calc Pharmacy 125.2 ml/min; Est GFR (African American) 130.9 ml/min; Est GFR (Non-African American) 112.9 ml/min; Potassium 3.7 mmol/L (3.5-5.1)
[2020-12-14] MEDS: MoRPHine SULFATE 4 MG/ML 1 ML CARP\\VIAL IV PRN ×2 (04:20→23:00)
[2020-12-14] MEDS: LEVOTHYROXINE SODIUM 100 MCG TABLET PO SCH (04:22)
[2020-12-14 08:47] LABS: BUN Creatinine Ratio 28.5 (10-20); Calcium 7.4 mg/dl (8.5-10.1); Creatinine Clr Calc Pharmacy 126.5 ml/min; Est GFR (African American) 130.9 ml/min; Est GFR (Non-African American) 112.9 ml/min; Potassium 3.8 mmol/L (3.5-5.1)
[2020-12-14] MEDS ORDERED: cephALEXin 500 MG CAP PO SCH (10:00)
[2020-12-14] MEDS: POT PHOSPHATE MONOBASIC W/ SOD TAB PO SCH ×2 (10:19→21:48)
[2020-12-14] MEDS: levETIRAcetam ORAL SOLN 100MG/ML PO SCH ×2 (10:19→21:48)
[2020-12-14] MEDS: VIMPAT 150 MG PO SCH (10:19)
[2020-12-14] MEDS: FLUTICASONE PROPIONATE NA SPR 16 GM BTL NAE SCH (10:20)
--- NOTE | 2020-12-14 12:28 | Nephrology Progress Note ---
Date of Service December 14, 2020 Assessment & Plan (1) Hyponatremia: Patient with hypovolemic hyponatremia. Admission serum osmolality of 237; urine osmolality 429 and urine sodium less than 5. Admission sodium was 113; initially improvement stalled w/ tx as hypovolemia; then improved to 124 12/12 afternoon on 3% saline; 3% infusion stopped 1500 on 12/12. By 12/13 AM serum sodium has dropped back down to 118, improved to 122 on 12/14 AM after 500 mL 3% saline. Pt now though w/ more edema on exam, ongoing poor po intake: challenging case that has responded so far only to 3% saline. Today she is volume overloaded but also w/ very poor po intake. Vol OL may represent 3% saline; will treat her like low solute diet picture and follow. Not safe to leave w/ sNa < 128 and ideally higher; this must be maintained at least 8 hrs w/o IV intervention ideally. -goal sNa is 126 by tomorrow AM -maintain K of about 4 -continue FR 1.5L -recheck sNa q4hr ordered >>>did d/w pt, , Dr Estevez >> she needs to eat more and eat more protein, including protein shake; recommend reeval by speech / irrigation engineer >> still some trouble swallowing pills but how can we get her to eat more , lucia more protein; low threshold for calorie count -ordered that protein shake does not count toward FR -ordered recheck serum/urine osms, rd urine Na, serum albumin >>I spent > 30 minutes discussing pt care w/ pt and her (w/ him on phone at bedside); care also coordinated w/ Dr Estevez (2) Breast cancer metastasized to brain: Patient with metastatic breast cancer to brain, bones and malignant pleural effusion. Patient has seizures on Keppra. Somnolence improved today. initial impression that hyponatremia not a major contributor to neuro changes. We will continue slow correction of the sodium and monitor mental status. Admission and Anticipated Discharge Date Admission Date: December 11, 2020 Subjective pt very eager for d/c home today d/t poor po intake, poor sleep; no sob, no uncontrolled pain, ongoing fatigue, no confusion, no n/v Review of Systems Review of Systems: All systems reviewed & are unremarkable except as noted in Subjective Physical Exam Constitutional: well developed, + frail appearing and cooperative; no acute distress drifts off to sleep at times Eyes: EOM intact bilaterally ENMT: Ears: no external ear abnormality Nose: no external nose abnormality Mouth: + muffled voice (hoarse) and + dry oral mucous membranes Neck: no nuchal rigidity Respiratory: normal respiratory effort Auscultation: lungs clear to auscultation bilaterally (on RA) and + diminished lung sounds (lucia L posterior field) Cardiovascular: Rate/Rhythm: regular rate and regular rhythm Extremities: + edema (2+BLE; also LUE edm) Gastrointestinal (Abdomen): Inspection/Auscultation: normal bowel sounds Percussion/Palpation: abdomen soft; abdomen nontender and no guarding Musculoskeletal: Extremities: strength 5/5 throughout Skin: no rashes, warm and dry Psychiatric: Orientation: alert and oriented x 3 Speech: normal rate/rhythm/volume of speech Affect: + flat affect Results & Data ([facility]) Vital Signs (Past 12 Hours) Vital Signs Temp Pulse Pulse Resp BP Pulse Ox 12/14/20 11:29 36.3 C L 97 H 16 120/83 97 12/14/20 07:30 36.5 C 88 16 119/74 96 12/14/20 05:14 88 12/14/20 04:24 36.5 C 90 18 112/76 95 Laboratory Results 12/12/20 06:03 12/14/20 08:16
[2020-12-14 13:44] LABS: Albumin Level 1.8 gm/dl (3.4-5.0); BUN Creatinine Ratio 24.1 (10-20); Calcium 7.3 mg/dl (8.5-10.1); Creatinine Clr Calc Pharmacy 104.9 ml/min; Est GFR (Non-African American) 106.2 ml/min; Potassium 3.5 mmol/L (3.5-5.1)
--- NOTE | 2020-12-14 14:28 | Hospitalist Progress Note ---
Date of Service December 14, 2020 Assessment & Plan (1) Hyponatremia: Acute on Chronic hyponatremia History of metastatic breast cancer with mets to brain, recurrent malignant pleural effusion Pt is 70 y/o F with PMH left breast CA initially diagnosed in 2011 now with recurrence in 2019 with bony metastasis and brain mets, recurrent pleural effusion, current Pleurx catheter to right draining every other day presented to ER for abnormal labs-hyponatremia. Patient had outpatient labs and was found to have sodium of 111 (sodium in 11/2020 was 127) On admission. Na: 113, serum osmolality: 237 Hyponatremia likely due to brain mets/SIADH and possible combination of dehydration -Patient was given 3% normal saline Appreciate input from nephrology, 12/13/20 given 3% IV NSS slow infusion 30 ml /hr Na level gradually increased to 124 in afternoon hypertonic Na solution discontinued overnight Na level decreased to 118 3% NSS IV restarted this AM , cont to monitor BMP , goal Na 124 in am -Continue fluid restriction 1500 mL 12/14/20: na 120's per nephrology will continue to follow serial BMP goal Na level 126's or above without hypertonic infusion for 24 hrs pt was eager to go home after counselling willing to stay in hospital for continues monitoring (2) Breast cancer metastasized to brain: Has chronic diplopia, denies of any headache, does not have any dizzy spell or lightheadedness at present (3) Malignant pleural effusion: pt noted to be more short of breath today , repeat chest xray orderded asked nursing to drain 200 ml pleura effusion ( had 400 ml drainage yesterday ) (4) Atelectasis of left lung: Follows with Maintenance Operator @ [facility] Dr. Muhammad. Follows with oncology-Dr. Kay Has Pleurx catheter in place. Currently drains every 2 days. Has been getting 400 mL drainage plurex catheter drained on 12/13/20 , with almost 400 ml serososanguinous fluid ask to drain 200 ml more today for shortness of breath routine 400 ml drainage tomorrow Seizure d/o in setting of brain mets s/p neurosurgical intervention 07/25 to brain mets -continue /keppra, no recent seizure high risk for seizure episode of hyponatremia , and patient updated -follows [facility] Neurology -Chronic diplopia with stable symptoms (5) Hypothyroidism: -Continue levothyroxine (6) Extremity edema: Chronic left upper extremity edema, chronic bilateral lower extremity edema No erythema or discomfort -Monitor (7) Pacemaker: EKG paced rhythm DVT Prophylaxis -was ordered for SCD given hx of brain metastasis high risk for dvt given metastatic malignancy as pt is requiring prolong hospital stay has remains quite bedboud due to illness ordered for Sub q lovenox Full Code as per discussion with pt and pt's Disposition:pt remains very fatigued ,and weak PT/OT eval updated at bedside . Admission and Anticipated Discharge Date Admission Date: December 11, 2020 Subjective Patient seen in room 289 bed 2: Follow-up visit for hyponatremia, metastatic breast cancer, metastatic pleural effusion. very tired and more short of breath today unable to speck in complete sentences was sleeping most part of the day appetite remains very poor at bedside , worried about pt's poor appetite , getting more weak understands that she will need continued hospital stay as Na level remains low pt does not have any fever or chills did not had any bowel movement since admission agreeable to have enema having difficulty swallowing pills , requests all meds to be crushed or change to liquid form Review of Systems Constitutional: + fatigue, + weakness and + anorexia Respiratory: + dyspnea Cardiovascular: + dyspnea at rest Gastrointestinal: + constipation Physical Exam Constitutional: WD/WN, vitals as above + ill appearing (Very pleasant, conversing); no acute distress Eyes: + anicteric sclerae (Chronic blurred vision secondary to brain mets) ENMT: external ear and nose normal, oropharynx normal Neck: trachea midline, no thyromegaly Respiratory: Auscultation: + diminished lung sounds, + crackles (Mostly on right side, has right sided Pleurx catheter) and + rales Cardiovascular: Rate/Rhythm: regular rate and regular rhythm Extremities: + edema (Bilateral +1/2 pitting edema no calf tenderness) Gastrointestinal (Abdomen): Inspection/Auscultation: normal bowel sounds Pe rcussion/Palpation: abdomen soft; abdomen nontender Skin: no rashes, warm and dry Neurologic: PERRL, EOMI, accommodation nl, no face palsy, no dysarthria (Chronic blurred vision for metastatic brain mets, generalized weakness) Psychiatric: A+Ox3, euthymic affect Results & Data Results & Data ([facility]) Vital Signs (Past 12 Hours) Vital Signs Temp Pulse Pulse Resp BP Pulse Ox 12/14/20 11:29 36.3 C L 97 H 16 120/83 97 12/14/20 07:30 36.5 C 88 16 119/74 96 12/14/20 05:14 88 12/14/20 04:24 36.5 C 90 18 112/76 95
[2020-12-14] MEDS ORDERED: ACETAMINOPHEN SUSP 325 MG/10.15 ML UDC PO PRN (14:30)
[2020-12-14] MEDS ORDERED: SOD PHOSPHATE/SOD BIPHOSPHATE ENEMA 132 ML BTL PR SCH (15:00)
[2020-12-14] MEDS ORDERED: SOD PHOSPHATE/SOD BIPHOSPHATE ENEMA 132 ML BTL PR STA (15:00)
--- NOTE | 2020-12-14 15:02 | XRay Report ---
XR chest 1V portable CLINICAL HISTORY: Shortness of breath COMPARISON STUDY: 12/11/2020 FINDINGS: There is a left subclavian dual-chamber central venous pacemaker. There is persistent compl ete opacification left hemithorax with left-sided volume loss and cardiac and mediastinal shift to th e left. There is a persistent moderate right pleural effusion.[A catheter projects over the base the right hemithorax likely representing a pleural drain. Right basilar opacities likely representing com pressive atelectasis. There are bilateral rib fractures, likely pathologic IMPRESSION: 1. No significant change from the preceding study 2. Persistent complete opacification left hemithorax, likely secondary to left lung atelectasis with a possible pleural effusion 3. Persistent moderate right pleural effusion with a suspected right-sided pleural drain. 4. Right basilar opacities, likely representing compressive atelectasis although an infectious/inflam matory process could appear similar ACT 112: Negative or not required by law. Electronically signed by: Melvin Butler M.D. 12/14/2020 3:01 PM
[2020-12-14] MEDS ORDERED: IBUPROFEN 200 MG/10 ML UDC PO PRN (15:12)
[2020-12-14 16:22] LABS: BUN Creatinine Ratio 28.7 (10-20); Calcium 7.7 mg/dl (8.5-10.1); Creatinine Clr Calc Pharmacy 119.5 ml/min; Est GFR (African American) 128.4 ml/min; Est GFR (Non-African American) 110.8 ml/min; Potassium 3.8 mmol/L (3.5-5.1)
[2020-12-14 21:05] LABS: Calcium 7.7 mg/dl (8.5-10.1); Creatinine Clr Calc Pharmacy 116.3 ml/min; Est GFR (African American) 127.3 ml/min; Est GFR (Non-African American) 109.8 ml/min; Potassium 3.8 mmol/L (3.5-5.1)
[2020-12-14] MEDS ORDERED: FUROSEMIDE IV ONE (22:00)
[2020-12-14] MEDS: VIMPAT 200 MG PO SCH (22:06)
[2020-12-15] MEDS: LEVOTHYROXINE SODIUM 100 MCG TABLET PO SCH (06:23)
[2020-12-15 06:43] LABS: BUN Creatinine Ratio 29.6 (10-20); Calcium 7.6 mg/dl (8.5-10.1); Creatinine Clr Calc Pharmacy 143.4 ml/min; Est GFR (African American) 136.4 ml/min; Est GFR (Non-African American) 117.7 ml/min; Phosphorus 1.6 mg/dl (2.5-4.9); Potassium 3.7 mmol/L (3.5-5.1)
[2020-12-15] MEDS ORDERED: SODIUM PHOSPHATE 3 MMOL/1 ML INFUSION IV ONE (08:54)
[2020-12-15] MEDS ORDERED: SODIUM PHOSPHATE 21 MMOL in SODIUM CHLORIDE 0.9% 500 ML IV ONE (09:00)
[2020-12-15] MEDS: POLYETHYLENE (MIRALAX) 17 GM PACK PO SCH (09:01)
[2020-12-15] MEDS: POT PHOSPHATE MONOBASIC W/ SOD TAB PO SCH ×2 (09:03→20:17)
[2020-12-15] MEDS: levETIRAcetam ORAL SOLN 100MG/ML PO SCH ×2 (09:04→20:17)
[2020-12-15] MEDS: FLUTICASONE PROPIONATE NA SPR 16 GM BTL NAE SCH (09:05)
[2020-12-15] MEDS: VIMPAT 150 MG PO SCH (09:10)
[2020-12-15] MEDS ORDERED: FUROSEMIDE 10 MG in SYRINGE 0 ML IV ONE (15:00)
[2020-12-15 15:09] LABS: BUN Creatinine Ratio 31.1 (10-20); Calcium 7.9 mg/dl (8.5-10.1); Creatinine Clr Calc Pharmacy 121.8 ml/min; Est GFR (African American) 128.4 ml/min; Est GFR (Non-African American) 110.8 ml/min; Potassium 3.5 mmol/L (3.5-5.1)
[2020-12-15 15:14] LABS: Phosphorus 3.3 mg/dl (2.5-4.9)
--- NOTE | 2020-12-15 16:37 | Nephrology Progress Note ---
Date of Service December 15, 2020 Assessment & Plan (1) Hyponatremia: Plan: labile but not moving overall very much > hypervolemic hyponatremia etiology for this dx has changed through admission. Admission serum osmolality of 237; urine osmolality 429 and urine sodium less than 5. Admission sodium was 113; initially improvement stalled w/ tx as hypovolemia; then improved to 124 12/12 afternoon on 3% saline; 3% infusion stopped 1500 on 12/12. By 12/13 AM serum sodium has dropped back down to 118, improved to 122 on 12/14 AM after 500 mL 3% saline. Pt now though w/ more edema on exam, ongoing poor po intake: challenging case that has responded so far only to 3% saline. Today she is volume overloaded but also w/ very poor po intake with edema, BL pleural effus ions. Had 400 from pleurex this am (2) Breast cancer metastasized to brain: Plan: goals of care discussion as below Plan: -recommend primary service offer and family palliative consult > to focus on goals of care; pt wants very much to be home; family worried about worse emotional status here; high risk of falls/seizure to go home w/ sNa like this > but this may nonetheless better fit her goals; I spent > 15 minutes talking about hyponatremia, risks/ treatment/challenges in overall context of her care w/ pt and today -bmp this evening > orange picker machine operator to supplement K if needed -maintain K about 4 -2 lasix doses 10 mg IV ordered for today -goal sNa for tomorrow AM is 126 -continue efforts at better protein intake and 1.5L FR -protein shake does not count toward FR Admission and Anticipated Discharge Date Admission Date: December 11, 2020 Subjective sodium worsened through day yesterday; w/ vol OL I recommended lasix but pt refused; I did review w/ her last night this can delay improving sodium; she was ok with that. rationale for sNa d/w pt and today for > 15 minutes. they are working w/ dietary to improve protein intake; had enema last evening; denies sob; denies uncontrolle dpain; does not notice more edema; no voiding concerns; willing to take lasix today even if it interferes w/ sleep Review of Systems Review of Systems: 8 system review as per HPI and below; else unremarkable Physical Exam Constitutional: well developed, + frail appearing and cooperative; no acute distress tired; on 2LNC and slightly more WOB Eyes: EOM intact bilaterally ENMT: Ears: no external ear abnormality Nose: no external nose abnormality Mouth: + muffled voice (hoarse) and + dry oral mucous membranes Neck: no nuchal rigidity Respiratory: + labored breathing (slight) and able to speak in complete sentences (but pauses between) Auscultation: + diminished lung sounds (lucia L posterior field) pleurex on R Cardiovascular: Rate/Rhythm: regular rate and regular rhythm Extremities: + edema (2+BLE; also LUE edm) Gastrointestinal (Abdomen): Inspection/Auscultation: normal bowel sounds Percussion/Palpation: abdomen soft; abdomen nontender and no guarding Musculoskeletal: Extremities: strength 5/5 throughout Skin: no rashes, warm and dry Psychiatric: Orientation: alert and oriented x 3 Speech: normal rate/rhythm/volume of speech Affect: + flat affect Results & Data ([facility]) Vital Signs (Past 12 Hours) Vital Signs Temp Pulse Pulse Resp BP Pulse Ox 12/15/20 15:14 36.4 C L 91 H 20 108/71 100 12/15/20 11:04 36.5 C 96 H 16 116/79 94 12/15/20 08:00 80 12/15/20 07:18 36.5 C 93 H 20 104/71 94 Laboratory Results 12/12/20 06:03 12/15/20 14:32
--- NOTE | 2020-12-15 18:01 | Hospitalist Progress Note ---
Date of Service December 15, 2020 Assessment & Plan (1) Hyponatremia: Plan: Patient is a 70 yr female with H/O left breast CA initially diagnosed in 2011 now with recurrence in 2020 with bony metastasis and brain mets, recurrent pleural effusion,current Pleurx catheter to right draining every other day presented to ER for abnormal labs-hyponatremia. Patient had outpatient labs and was found to have sodium of 111 (sodium in 11/2020 was 127) Acute on Chronic hyponatremia Hypervolemic hyponatremia Sodium:113>123 Received Hypertonic saline Lasix as per Nephrology Appreciate Nephrology Input Monitor sodium levels Also on fluid restriction Pleural effusion drained as well H/O Metastatic breast cancer with mets to brain Recurrent malignant pleural effusion Chronic diplopia Gets Pleural fluid drained every other day Atelectasis of left lung: Follows with Search Engine Marketing Strategist @ [facility] Dr. Muhammad. Follows with oncology-Dr. Kay Has Pleurx catheter in place Palliative care consulted to address goals of care Seizure Brain mets s/p neurosurgical intervention 07/25 to brain mets continue /keppra Follows [facility] Neurology Hypothyroidism: TSH elevated Normal Free T4 Continue levothyroxine--increased to 112mcg Needs repeat Thyroid function test as outpatient Extremity edema: Chronic left upper extremity edema, chronic bilateral lower extremity edema Hypoalbuminemia Increase protein intake UTI-POA Urine Cx: E.Coli on Keflex Pacemaker: EKG paced rhythm DVT Px: SCDs Re: H/O brain metastasis Code Status Full Code Palliative care consulted to readdress goals of care Admission and Anticipated Discharge Date Admission Date: December 11, 2020 Subjective Patient is seen and examined at bedside States having chest, left upper extremity pain-chronic Discussed with patient's family over the phone Plan for draining pleural effusion present Denies shortness of breath, dizziness, nausea, abdominal pain Offers no other complaints Review of Systems Review of Systems: All systems reviewed & are unremarkable except as noted in HPI & below Physical Exam Physical Exam: Physical Exam: Vitals signs as noted above General Appearance:Moderately built and nourished, Chronic ill appearing Head: normocephalic, Atraumatic Eyes: normal inspection, EOMI, +Chronic blurred vision Neck: supple, Trachea midline Respiratory/Chest: Decreased breath sounds, CTA, No accessory muscle use Cardiovascular: S1, S2, No murmur Abdomen/GI:Soft, Non tender, Bowel sounds present Extremities/Musculoskeletal:normal inspection, B/L LE edema Neurologic/Psych:AAOX3, grossly no focal neurological deficits Skin: normal color, warm Results & Data Results & Data ([facility]) Vital Signs (Past 12 Hours) Vital Signs Temp Pulse Pulse Resp BP Pulse Ox 12/15/20 16:33 94 H 12/15/20 15:14 36.4 C L 91 H 20 108/71 100 12/15/20 11:04 36.5 C 96 H 16 116/79 94 12/15/20 08:00 80 12/15/20 07:18 36.5 C 93 H 20 104/71 94 Laboratory Results BMP 12/14/20 12/15/20 12/15/20 19:52 05:37 14:32 Sodium 120 L 120 L 123 L Potassium 3.8 3.7 3.5 Chloride 88 L 89 L 89 L Carbon Dioxide 29 29 27 BUN 11 9 11 Creatinine 0.37 L 0.30 L 0.36 L Glucose 134 H 110 H 130 H Calcium 7.7 L 7.6 L 7.9 L
[2020-12-15] MEDS ORDERED: ENOXAPARIN INJ 30 MG/0.3 ML SYR SQ ONE (20:00)
[2020-12-15] MEDS ORDERED: POTASSIUM CHLORIDE PWD 20 MEQ PACK PO ONE (20:11)
[2020-12-15] MEDS: VIMPAT 200 MG PO SCH (20:22)
[2020-12-15] MEDS: MoRPHine SULFATE 4 MG/ML 1 ML CARP\\VIAL IV PRN (20:51)
[2020-12-15] MEDS: FUROSEMIDE 10 MG in SYRINGE 0 ML IV ONE ×2 (20:52→21:07)
[2020-12-16] MEDS: MoRPHine SULFATE 4 MG/ML 1 ML CARP\\VIAL IV PRN ×2 (01:31→20:26)
[2020-12-16] MEDS: LEVOTHYROXINE SODIUM 112 MCG TABLET PO SCH (05:31)
[2020-12-16 05:53] LABS: Hematocrit (blood only) 34.1 % (37-47); Hemoglobin 11.8 g/dL (12.0-16.0); Mean Corpuscular Hemoglobin 29.6 pg (25-34); Mean Corpuscular Hgb Conc 34.6 g/dL (32-36); Mean Corpuscular Volume 85.7 fL (80-100); Mean Platelet Volume 8.3 fL (7.4-10.4); Platelet Count 232 K/uL (130-400); RDW Coefficient of Variation 20.1 % (11.5-14.5); RDW Standard Deviation 61.7 fL (36.4-46.3); Red Blood Count 3.98 M/uL (4.2-5.4); White Blood Count 7.15 K/uL (4.8-10.8)
[2020-12-16 06:16] LABS: BUN Creatinine Ratio 26.6 (10-20); Calcium 8.4 mg/dl (8.5-10.1); Est GFR (African American) 114.5 ml/min; Est GFR (Non-African American) 98.8 ml/min; Magnesium 2.3 mg/dl (1.8-2.4); Phosphorus 2.7 mg/dl (2.5-4.9); Potassium 4.9 mmol/L (3.5-5.1)
[2020-12-16] MEDS: levETIRAcetam ORAL SOLN 100MG/ML PO SCH ×2 (08:46→20:26)
[2020-12-16] MEDS: POLYETHYLENE (MIRALAX) 17 GM PACK PO SCH (08:47)
[2020-12-16] MEDS: POT PHOSPHATE MONOBASIC W/ SOD TAB PO SCH ×2 (08:47→20:27)
[2020-12-16] MEDS: FLUTICASONE PROPIONATE NA SPR 16 GM BTL NAE SCH (08:49)
[2020-12-16] MEDS: VIMPAT 150 MG PO SCH (09:09)
[2020-12-16] MEDS ORDERED: UREA (UREA-NA) 15 GM PACK PO SCH (10:45)
[2020-12-16] MEDS: FUROSEMIDE 20 MG in SYRINGE 0 ML IV SCH ×3 (10:54→22:16)
--- NOTE | 2020-12-16 11:59 | Palliative Care Consultation ---
Date of Consultation December 16, 2020 Assessment & Plan (1) Left shoulder pain: Controlled with prn morphine (2) Dyspnea: Related to malignant pleural effusion and debility. 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 She tells me that she does not worry about herself but is worried about how her family will cope after she is gone. She understands that her time is short and tells me that she would like her remaining days to be at home and with her family. She would like to be pain free. She understands that her hyponatremia will likely continue to be a problem and she would not want to have an extended hospital stay if possible. We talked about shift of focus to symptom management, comfort and support rather than disease management with testing and treatment. She is thinking that she would want to have comfort directed care. She had hospice care for both of her parents and is familiar with hospice. She would be agreeable to that for herself. We talked about her code status. Currently she is full code which would not be consistent with her comfort care approach at home. She also understands that it is not likely to prolong her life in any meaningful way. She would like to discuss this with her before making a decision but is considering DNR/DNI. I spoke with her , Juventino, on the phone. He has seen a decline in her condition and recognizes that she is not going to improve. He is interested in discussing options for support and care at home. I did share with him part of my discussion with Kayli about her understanding of her disease and wish for comfort. He is tearful but relieved to hear this. We have arranged a family me eting tomorrow at 930 to discuss further and address code status. History of Present Illness Reason for Consultation: goals of care Requesting Physician: Dr. Rose Attending Physician: Christiano Rose MD History of Present Illness 70 yo lady with history of breast cancer originally diagnosed in 2011. She had treatment with remission but developed recurrence in 2019 with metastases to the brain and bone. She is on keppra for seizures related to her brain metastases. She has a recurrent malignant pleural effusion with pleurx catheter and drainage every other day. She also has chronic left upper extremity lymphedema. She has also had problems with dysphagia and constipation. She was admitted with profound hyponatremia and sodium of 111. Her sodium level has been labile and very difficult to treat, complicated by edema. She has had functional decline and had been able to ambulate with her walker at home. She is able to ambulate to the bathroom with her walker and assistance but becomes very short of breath. She complains of weakness and pain in her left chest and shoulder. She has been getting IV morphine prn which is effective but she complains of medications making her feel "fuzzy". Allergies Allergy/AdvReac Type Severity Reaction Status Date / Time No Known Allergies Allergy Verified 12/11/20 17:11 Home Medications Medication Instructions Recorded Confirmed Type levothyroxine 100 mcg tablet 100 mcg PO QAM 07/10/19 12/11/20 History denosumab 120 mg/1.7 mL (70 mg/mL) 120 mg SQ MONTHLY ml 07/25/19 12/11/20 History subcutaneous solution (Xgeva) fluticasone propionate 50 1 sprays INTRANASAL QAM ml 08/12/19 12/11/20 History mcg/actuation nasal spray,suspension potassium phosphate, monobasic 500 500 mg PO BID tab 01/14/20 12/11/20 History mg soluble tablet (K-Phos Original) capecitabine 500 mg tablet (Xeloda) 500 mg PO BID tab 11/03/20 12/11/20 History lacosamide 150 mg tablet (Vimpat) 150 mg PO QAM 12/11/20 12/11/20 History lacosamide 200 mg tablet (Vimpat) 200 mg PO QPM 12/11/20 12/11/20 History levetiracetam 100 mg/mL oral 1,700 mg PO BID 12/11/20 12/11/20 History solution ondansetron 8 mg disintegrating 8 mg TRANSLINGUAL Q8H PRN 12/11/20 12/11/20 History tablet urea 20 % topical cream 1 applic TOPICAL BID 12/11/20 12/11/20 History Patient History Medical History Brain edema Breast cancer "s/p left mastectomy and chemotherapy" Complex partial status epilepticus Extremity edema Focal seizures GERD (gastroesophageal reflux disease) H/O radioactive iodine thyroid ablation Hypothyroidism Pacemaker Since 2014 Pleural effusion Pneumothorax Second degree heart block Surgical History H/O left mastectomy "10/16/11 with sentinel lymph node bx" History of esophagogastroduodenoscopy (EGD) History of hysteroscopy S/P cholecystectomy Family History Mother , age 87 bowel blockage and heart diease No problems noted. Father , age 81 unknown type of cancer No problems noted. Brother No problems noted. Brother No problems noted. Sister No problems noted. Sister Cancer skin cancer Daughter No problems noted. Daughter No problems noted. 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 Feels Safe at Home: Yes Childhood Exposure to Second-Hand Smoke: Yes caffeine: Yes (3 cups per day green tea 3 times per week) during the past year weight has: decreased > 10 lbs Dental Care, Regularly: Yes Physical Activity Frequency: Daily Physical Activity Frequency Comment: daily walks Seatbelt Use: always Sunscreen Use: Yes Assistive Devices: Walker Review of Systems Review of Systems: [place] Symptom Assessment Scale Pain 1/3 Dyspnea 2/3 Nausea 0/3 Anxiety 1/3 Drowsiness 1/3 Palliative Performance Score 50% Physical Exam Constitutional: + ill appearing and + lethargic ENMT: Mouth: + dry oral mucous membranes Respiratory: + uses accessory muscles Musculoskeletal: lymphedema LUE Skin: warm and dry Neurologic: moves all extremities; not confused Psychiatric: Orientation: alert and oriented x 3 Results & Data ([facility]) Vital Signs (Past 12 Hours) Vital Signs Temp Pulse Pulse Resp BP Pulse Ox 12/16/20 11:10 97.3 F L 98 H 20 137/89 95 12/16/20 07:53 96 H 12/16/20 07:44 97.7 F 97 H 20 121/78 94 12/16/20 04:38 97.5 F L 99 H 20 116/78 95 12/16/20 02:46 91 H 12/16/20 00:21 98.2 F 96 H 20 122/93 95 PG Care Time/CCT Total # of Minutes Spent Total Time Spent with Patient: Total time spent is greater than 50% in coordination of care (as documented) at patient's floor/unit and/or counseling patient: total time spent 70 minutes with more than 50% of time spent on symptom management, goals of care, code status, family support and education Coding Level of Care Code 74603 Initial Inpt Care Lvl 3 Diagnoses Left shoulder pain M25.512 Dyspnea R06.00 Pleural effusion on left J90 Complex partial status epilepticus G40.201 Epilepsy type: partial symptomatic Intractability: not intractable Breast cancer metastasized to brain C50.919; C79.31 Palliative care encounter Z51.5
--- NOTE | 2020-12-16 14:17 | Hospitalist Progress Note ---
Date of Service December 16, 2020 Assessment & Plan (1) Hyponatremia: Plan: Patient is a 70 yr female with H/O left breast CA initially diagnosed in 2011 now with recurrence in 2020 with bony metastasis and brain mets, recurrent pleural effusion,current Pleurx catheter to right draining every other day presented to ER for abnormal labs-hyponatremia. Patient had outpatient labs and was found to have sodium of 111 (sodium in 11/2020 was 127) Acute on Chronic hyponatremia Hypervolemic hyponatremia Sodium:113>123>121 Received Hypertonic saline Lasix as per Nephrology Appreciate Nephrology Input Monitor sodium levels Also on fluid restriction Pleural effusion getting drained every other day Started on Lasix, Urea H/O Metastatic breast cancer with mets to brain Recurrent malignant pleural effusion Chronic diplopia Gets Pleural fluid drained every other day Atelectasis of left lung: Follows with [facility]patcher @ [facility] Dr. Muhammad. Follows with oncology-Dr. Kay Has Pleurx catheter in place Appreciate Palliative care Input Family meeting tomorrow to address goals of care Seizure Brain mets s/p neurosurgical intervention 07/25 to brain mets continue /keppra Follows [facility] Hypothyroidism: TSH elevated Normal Free T4 Continue levothyroxine--increased to 112mcg Needs repeat Thyroid function test as outpatient Extremity edema: Chronic left upper extremity edema, chronic bilateral lower extremity edema Hypoalbuminemia Increase protein intake UTI-POA Urine Cx: E.Coli on Keflex Pacemaker: EKG paced rhythm DVT Px: Lovenox SQ Code Status Full Code for now Admission and Anticipated Discharge Date Admission Date: December 11, 2020 Subjective Patient is seen and examined at bedside Chest, left upper extremity less painful today No new complaints Family meeting planned for Tmw to address goals of care Sodium levels remain at 121 Reports Dyspnea on exertion Started on IV lasix and Urea Also states having some dizziness intermittently Review of Systems Review of Systems: All systems reviewed & are unremarkable except as noted in Subjective Physical Exam Physical Exam: Physical Exam: Vitals signs as noted above General Appearance:Moderately built and nourished, Chronic ill appearing Head: normocephalic, Atraumatic Eyes: normal inspection, EOMI, +Chronic blurred vision Neck: supple, Trachea midline Respiratory/Chest: Decreased breath sounds, CTA, No accessory muscle use Cardiovascular: S1, S2, No murmur Abdomen/GI:Soft, Non tender, Bowel sounds present Extremities/Musculoskeletal:normal inspection, B/L LE edema Neurologic/Psych:AAOX3, grossly no focal neurological deficits Skin: normal color, warm Results & Data Results & Data ([facility]) Vital Signs (Past 12 Hours) Vital Signs Temp Pulse Pulse Resp BP Pulse Ox 12/16/20 11:10 36.3 C L 98 H 20 137/89 95 12/16/20 07:53 96 H 12/16/20 07:44 36.5 C 97 H 20 121/78 94 12/16/20 04:38 36.4 C L 99 H 20 116/78 95 12/16/20 02:46 91 H Laboratory Results Short CBC 12/16/20 Range/Units 05:42 WBC 7.15 (4.8-10.8) K/uL Hgb 11.8 L (12.0-16.0) g/dL Hct 34.1 L (37-47) % Plt Count 232 (130-400) K/uL BMP 12/15/20 12/16/20 14:32 05:42 Sodium 123 L 121 L Potassium 3.5 4.9 D Chloride 89 L 90 L Carbon Dioxide 27 26 BUN 11 13 Creatinine 0.36 L 0.51 L Glucose 130 H 140 H Calcium 7.9 L 8.4 L
--- NOTE | 2020-12-16 15:05 | Nephrology Progress Note ---
Date of Service December 16, 2020 Assessment & Plan Admission and Anticipated Discharge Date Admission Date: December 11, 2020 Subjective (1) Hyponatremia: Plan: labile but not moving overall very much > hypervolemic hyponatremia etiology for this dx has changed through admission. Admission serum osmolality of 237; urine osmolality 429 and urine sodium less than 5. Admission sodium was 113; initially improvement stalled w/ tx as hypovolemia; then improved to 124 12/12 afternoon on 3% saline; 3% infusion stopped 1500 on 12/12. By 12/13 AM serum sodium has dropped back down to 118, improved to 122 on 12/14 AM after 500 mL 3% saline. Pt now though w/ more edema on exam, ongoing poor po intake: challenging case that has responded so far only to 3% saline. Today she is volume overloaded but also w/ very poor po intake with edema, BL pleural effusions. Had 400 from pleurex this am (2) Breast cancer metastasized to brain: Plan: goals of care discussion as below Plan: - Appreciated Palliative consult and patient's desire to pursue comfort care. --- for now Lasix 20 mg IV q.8 hours can be regarded as somewhat of a comfort measure. --- urea 15 g twice daily was prescribed but given the patient desired to be comfort care I will stop this medication as this taste very bad --Change labs to every AM now Subjective sodium worsened through day yesterday; w/ vol OL I recommended lasix but pt refused; I did review w/ her last night this can delay improving sodium; she was ok with that. rationale for sNa d/w pt and today for > 15 minutes. they are working w/ dietary to improve protein intake; had enema last evening; denies sob; denies uncontrolle dpain; does not notice more edema; no voiding concerns; willing to take lasix today even if it interferes w/ sleep Review of Systems Review of Systems: 8 system review as per HPI and below; else unremarkable Physical Exam Constitutional: well developed, + frail appearing and cooperative; no acute distress tired; on 2LNC and slightly more WOB Eyes: EOM intact bilaterally ENMT: Ears: no external ear abnormality Nose: no external nose abnormality Mouth: + muffled voice (hoarse) and + dry oral mucous membranes Neck: no nuchal rigidity Respiratory: + labored breathing (slight) and able to speak in complete sentences (but pauses between) Auscultation: + diminished lung sounds (lucia L posterior field) pleurex on R Cardiovascular: Rate/Rhythm: regular rate and regular rhythm Extremities: + edema (2+BLE; also LUE edm) Gastrointestinal (Abdomen): Inspection/Auscultation: normal bowel sounds Percussion/Palpation: abdomen soft; abdomen nontender and no guarding Musculoskeletal: Extremities: strength 5/5 throughout Skin: no rashes, warm and dry Psychiatric: Orientation: alert and oriented x 3 Speech: normal rate/rhythm/volume of speech Affect: + flat affect Results & Data ([facility]) Vital Signs (Past 12 Hours) Vital Signs Temp Pulse Pulse Resp BP Pulse Ox 12/16/20 11:10 36.3 C L 98 H 20 137/89 95 12/16/20 07:53 96 H 12/16/20 07:44 36.5 C 97 H 20 121/78 94 12/16/20 04:38 36.4 C L 99 H 20 116/78 95
[2020-12-16] MEDS ORDERED: bisacodyL 10 MG SUPP PR PRN (16:20)
[2020-12-16] MEDS ORDERED: Nursing to Pharmacy Communication SCH (19:15)
[2020-12-16] MEDS ORDERED: ENOXAPARIN INJ 30 MG/0.3 ML SYR SQ SCH (20:00)
[2020-12-16] MEDS ORDERED: DOCUSATE SODIUM 100 MG CAP PO SCH (21:00)
[2020-12-16] MEDS ORDERED: DOCUSATE SODIUM SYRUP 100 MG/10 ML UDC PO SCH (21:00)
[2020-12-16] MEDS: VIMPAT 200 MG PO SCH (21:30)
[2020-12-16 23:08] LABS: BUN Creatinine Ratio 34.7 (10-20); Calcium 7.8 mg/dl (8.5-10.1); Creatinine Clr Calc Pharmacy 89.3 ml/min; Est GFR (Non-African American) 100.1 ml/min; Potassium 3.6 mmol/L (3.5-5.1)
[2020-12-17] MEDS ORDERED: Nursing to Pharmacy Communication SCH (03:15)
[2020-12-17] MEDS: FUROSEMIDE 20 MG in SYRINGE 0 ML IV SCH ×2 (05:18→13:51)
[2020-12-17] MEDS: LEVOTHYROXINE SODIUM 112 MCG TABLET PO SCH (05:40)
[2020-12-17 07:01] LABS: BUN Creatinine Ratio 37.5 (10-20); Creatinine Clr Calc Pharmacy 112.8 ml/min; Est GFR (African American) 125.1 ml/min; Est GFR (Non-African American) 107.9 ml/min; Potassium 3.5 mmol/L (3.5-5.1)
[2020-12-17 07:02] LABS: Phosphorus 2.4 mg/dl (2.5-4.9)
[2020-12-17] MEDS: FLUTICASONE PROPIONATE NA SPR 16 GM BTL NAE SCH (08:52)
[2020-12-17] MEDS: levETIRAcetam ORAL SOLN 100MG/ML PO SCH (08:53)
[2020-12-17] MEDS: POLYETHYLENE (MIRALAX) 17 GM PACK PO SCH (08:53)
[2020-12-17] MEDS: POT PHOSPHATE MONOBASIC W/ SOD TAB PO SCH (08:53)
[2020-12-17] MEDS ORDERED: DOCUSATE SODIUM 100 MG CAP PO SCH (09:00)
[2020-12-17] MEDS: VIMPAT 150 MG PO SCH (09:24)
--- NOTE | 2020-12-17 09:26 | Nephrology Progress Note ---
Date of Service December 17, 2020 Assessment & Plan Admission and Anticipated Discharge Date Admission Date: December 11, 2020 Subjective (1) Hyponatremia: Plan: labile but not moving overall very much > hypervolemic hyponatremia etiology for this dx has changed through admission. Admission serum osmolality of 237; urine osmolality 429 and urine sodium less than 5. Admission sodium was 113; initially improvement stalled w/ tx as hypovolemia; then improved to 124 12/12 afternoon on 3% saline; 3% infusion stopped 1500 on 12/12. By 12/13 AM serum sodium has dropped back down to 118, improved to 122 on 12/14 AM after 500 mL 3% saline. Pt now though w/ more edema on exam, ongoing poor po intake: challenging case that has responded so far only to 3% saline. Today she is volume overloaded but also w/ very poor po intake with edema, BL pleural effusions. Had 400 from pleurex this am (2) Breast cancer metastasized to brain: Plan: goals of care discussion as below Plan: - Appreciated Palliative consult and patient's desire to pursue comfort care. It appeas she has made up her mind. --- for now Lasix 20 mg IV q.8 hours can be regarded as somewhat of a comfort measure. can use lasix po even at home if patient desires --- Will sign off . D/c all labs. Subjective Falt affect. Some back pain. Lot of edema. NO new issues. Seen by palliative med Review of Systems Review of Systems: 8 system review as per HPI and below; else unremarkable Physical Exam Constitutional: well developed, + frail appearing and cooperative; no acute distress tired; on 2LNC and slightly more WOB Eyes: EOM intact bilaterally ENMT: Ears: no external ear abnormality Nose: no external nose abnormality Mouth: + muffled voice (hoarse) and + dry oral mucous membranes Neck: no nuchal rigidity Respiratory: + labored breathing (slight) and able to speak in complete sentences (but pauses between) Auscultation: + diminished lung sounds (lucia L posterior field) pleurex on R Cardiovascular: Rate/Rhythm: regular rate and regular rhythm Extremities: + edema (2+BLE; also LUE edm) Gastrointestinal (Abdomen): Inspection/Auscultation: normal bowel sounds Percussion/Palpation: abdomen soft; abdomen nontender and no guarding Musculoskeletal: Extremities: strength 5/5 throughout Skin: no rashes, warm and dry Psychiatric: Orientation: alert and oriented x 3 Speech: normal rate/rhyth m/volume of speech Affect: + flat affect Results & Data ([facility]) Vital Signs (Past 12 Hours) Vital Signs Temp Pulse Pulse Resp BP Pulse Ox 12/17/20 08:03 36.4 C L 96 H 20 107/70 95 12/17/20 07:49 98 H 12/17/20 05:17 100 H 18 124/72 93 12/17/20 03:26 36.4 C L 97 H 18 92/67 L 93 12/17/20 00:07 36.7 C 96 H 18 116/75 92 12/16/20 22:20 96 H 12/16/20 22:09 99 H 18 93/60 L 94 12/16/20 21:28 101/67 93
[2020-12-17] MEDS ORDERED: MoRPHine SULFATE 5 MG/0.25 ML UDP PO PRN ×2 (12:05→16:50)
--- NOTE | 2020-12-17 12:09 | Palliative Care Progress Note ---
Date of Service December 17, 2020 Assessment & Plan (1) Left shoulder pain: Plan: Roxanol ordered at equivalent dose from IV morphine in anticipation of discharge home. This has been effecitive for her prn. (2) Dyspnea: Plan: with malignant pleural effusion, debility. Thoracentesis today with tunneled pleurx catheter (3) Palliative care encounter: Plan: I talked with Mr. Oswald and his daughters, Blossom in person and Ines via speaker phone. We reviewed her current status and discussed conversation that I had with Kayli yesterday. We discussed options of home with visiting nurses and continued medical management versus home with comfort directed care. Being at home is her most important wish. The family in agreement with comfort as primary goal which is consistent with Kayli's goal. We discussed hospice benefit and support available. They would be interested in paid caregivers to help lighten the load of care and allow Mr. Oswald to handle other errands and chores. We discussed home PT as not consistent with hospice level of care. We discussed medications and balance of symptom relief with sedation. We then met with Kayli in her room. She does recall our conversation yesterday and confirms that being at home with comfort care is her wish. She has had hospice for her parents when they and would like that support for her at home as well. We have discussed code status and she understands that full CPR and resuscitation is not likely to have the desired outcome for her and not necessarily consistent with her wish for a comfortable, peaceful at home. She is considering DNR but has not completely decided at this time. (4) Breast cancer metastasized to brain: Admission and Anticipated Discharge Date Admission Date: December 11, 2020 Subjective More awake today. Smiling. Still having pain in left shoulder. Breathing is "rough". Review of Systems Review of Systems: [place] Symptom Assessment Scale Pain 1/3 Dyspnea 2/3 Fatigue 2/3 Anxiety 0/3 Drowsiness 0/3 Palliative Performance Score 50% Physical Exam Constitutional: + ill appearing; no acute distress Respiratory: + uses accessory muscles thoracentesis straw colored fluid Musculoskeletal: lymphedema LUE Neurologic: awake; not confused Psychiatric: Orientation: alert and oriented x 3 Genitourinary: continent Results & Data ([facility]) Vital Signs (Past 12 Hours) Vital Signs Temp Pulse Pulse Resp BP Pulse Ox 12/17/20 11:19 97.9 F 96 H 20 97/68 L 93 12/17/20 08:03 97.5 F L 96 H 20 107/70 95 12/17/20 07:49 98 H 12/17/20 05:17 100 H 18 124/72 93 12/17/20 03:26 97.5 F L 97 H 18 92/67 L 93 PG Care Time/CCT Total # of Minutes Spent Total Time Spent with Patient: Total time spent is greater than 50% in coordination of care (as documented) at patient's floor/unit and/or counseling patient:total time spent 65 minutes withmore than 50% of time spent on goals of care, symptom management, family education and support, hospice, coordination of care Coding Level of Care Code 27840 Prolonged Care-adt'l 30m Diagnoses Left shoulder pain M25.512 Dyspnea R06.00 Palliative care encounter Z51.5 Breast cancer metastasized to brain C50.919; C79.31 Time Spent (min) 65
--- NOTE | 2020-12-17 14:32 | Hospitalist Progress Note ---
Date of Service December 17, 2020 Assessment & Plan (1) Hyponatremia: Plan: Patient is a 70 yr female with H/O left breast CA initially diagnosed in 2011 now with recurrence in 2020 with bony metastasis and brain mets, recurrent pleural effusion,current Pleurx catheter to right draining every other day presented to ER for abnormal labs-hyponatremia. Patient had outpatient labs and was found to have sodium of 111 (sodium in 11/2020 was 127) Acute on Chronic hyponatremia Hypervolemic hyponatremia Sodium:113>123>121>122 Received Hypertonic saline Lasix as per Nephrology Appreciate Nephrology Input Monitor sodium levels Also on fluid restriction Pleural effusion getting drained every other day Received Lasix, Urea Plan to discharge on 1500 mL fluid restriction and torsemide 20 mg daily as recommended by nephrology H/O Metastatic breast cancer with mets to brain Recurrent malignant pleural effusion Chronic diplopia Gets Pleural fluid drained every other day Atelectasis of left lung: Follows with Press Room Supervisor @ [facility] Dr. Muhammad. Follows with oncology-Dr. Kay Has Pleurx catheter in place Appreciate Palliative care Input Planned to transitioned to Hospice upon discharge as per patient's and family preference Seizure Brain mets s/p neurosurgical intervention 07/25 to brain mets continue /keppra Follows [facility] Hypothyroidism: TSH elevated Normal Free T4 Continue levothyroxine--increased to 112mcg Needs repeat Thyroid function test as outpatient Extremity edema: Chronic left upper extremity edema, chronic bilateral lower extremity edema Hypoalbuminemia Increase protein intake UTI-POA Urine Cx: E.Coli on Keflex Pacemaker: EKG paced rhythm DVT Px: Lovenox SQ Code Status Full Code for now as per patient Disposition Home with Hospice services Admission and Anticipated Discharge Date Admission Date: December 11, 2020 Subjective Patient is seen and examined at bedside Dyspnea improved with draining of pleural fluid Patient prefers to be transitioned to hospice Discussed with Nephrology today Family at bedside Denies any significant pain Sodium levels remain at 122 Review of Systems Review of Systems: All systems reviewed & are unremarkable except as noted in Subjective Physical Exam Physical Exam: Physical Exam: Vitals signs as noted above General Appearance:Moderately built and nourished, Chronic ill appearing Head: normocephalic, Atraumatic Eyes: normal inspection, EOMI, +Chronic blurred vision Neck: supple, Trachea midline Respiratory/Chest: Decreased breath sounds, CTA, No accessory muscle use Cardiovascular: S1, S2, No murmur Abdomen/GI:Soft, Non tender, Bowel sounds present Extremities/Musculoskeletal:normal inspection, B/L LE edema Neurologic/Psych:AAOX3, grossly no focal neurological deficits Skin: normal color, warm Results & Data Results & Data ([facility]) Vital Signs (Past 12 Hours) Vital Signs Temp Pulse Pulse Resp BP Pulse Ox 12/17/20 11:19 36.6 C 96 H 20 97/68 L 93 12/17/20 08:03 36.4 C L 96 H 20 107/70 95 12/17/20 07:49 98 H 12/17/20 05:17 100 H 18 124/72 93 12/17/20 03:26 36.4 C L 97 H 18 92/67 L 93 Laboratory Results [facility] 12/16/20 12/17/20 22:39 06:03 Sodium 123 L 122 L Potassium 3.6 D 3.5 Chloride 88 L 88 L Carbon Dioxide 28 29 BUN 17 15 Creatinine 0.49 L 0.39 L Glucose 126 H 126 H Calcium 7.8 L 8.0 L
[2020-12-17] MEDS: MoRPHine SULFATE 4 MG/ML 1 ML CARP\\VIAL IV PRN (14:52)
--- NOTE | 2020-12-17 15:04 | Discharge Summary ---
Date of Service December 17, 2020 Admission HPI Per Admitting Provider Pt is 70 y/o F with PMH left breast CA initially diagnosed in 2011 now with recurrence in 2020 with bony metastasis and brain mets, recurrent pleural effusion, current Pleurx catheter to right draining every other day presented to ER for abnormal labs-hyponatremia. Patient had outpatient labs today and was found to have sodium of 111 (sodium in 11/2020 was 127) and patient was referred to ER. Patient reports chronic shortness of breath, chronic back pain, chronic progressive weakness. Reports poor appetite at baseline. Drinks 2 L water a day, cup of tea. states patient mental status seems to be at baseline, sometimes has forgetfulness and he needs to help her with her pills. Has chronic left upper extremity edema, bilateral lower extremity edema with left lower extremity with worse edema. Denies any increased edema, redness, extremity pain. Has started seeing physical therapist for lymphedema therapy. Patient states today she vomited once and had a loose bowel movement. She was having constipation and took milk of magnesia. Patient Xeloda has been on hold for 2 weeks, is supposed to restart on 12/15 per oncology. She reports difficulty with swallowing and is to see speech therapy. Denies fever/chills, diaphoresis, hematemesis, melena, hematochezia, ST[place], syncope, vision changes, neck pain, CP, palpitations, cough, sore throat, otalgia, rhinorrhea, abdominal pain, paresthesias new rashes, hematuria, dysuria. Admission Exam Per Admitting Provider Physical Exam Physical Exam: General: no acute distress, thin chronically ill appearing female Head: normocephalic, atraumatic Eyes: PERRL, EOM's intact, conjunctiva non-injected, anicteric ENT: normal inspection external ears, nose, mucous membranes moist Neck: supple, trachea midline Lungs: diminished to no breath sounds left lung, right lung diminished breath sounds base, otherwise clear CV: RRR, no murmur, no pretibial edema Abd: normal BS, soft, non-tender Ext: no cyanosis, no erythema, no calf tenderness, no upper extremity tenderness. LUE + edema. BLE 3+edema Neuro: A&O x 3, no focal deficits noted, normal affect Skin: warm, dry Principal Diagnosis Hyponatremia Metastatic breast cancer Urinary tract infection Discharge Data Allergies Allergy/AdvReac Type Severity Reaction Status Date / Time No Known Allergies Allergy Verified 12/11/20 17:11 Consultations 12/11/20 17:49 ED Decision to Admit Stat 12/11/20 18:40 Consult Nephrology Routine 12/15/20 16:07 Consult Palliative Care Routine Hospital Course (1) Hyponatremia: Patient is a 70 yr female with H/O left breast CA initially diagnosed in 2011 now with recurrence in 2019 with bony metastasis and brain mets, recurrent pleural effusion,current Pleurx catheter to right draining every other day presented to ER for abnormal labs-hyponatremia. Patient had outpatient labs and was found to have sodium of 111 (sodium in 11/2020 was 127) Acute on Chronic hyponatremia Hypervolemic hyponatremia Sodium:113>123>121>122 Received Hypertonic saline Lasix as per Nephrology Appreciate Nephrology Input Monitor sodium levels Also on fluid restriction Pleural effusion getting drained every other day Received Lasix, Urea Plan to discharge on 1500 mL fluid restriction and torsemide 20 mg daily as recommended by nephrology H/O Metastatic breast cancer with mets to brain Recurrent malignant pleural effusion Chronic diplopia Gets Pleural fluid drained every other day Atelectasis of left lung: Follows with [facility] Dr. Muhammad. Follows with oncology-Dr. Kay Has Pleurx catheter in place Appreciate Palliative care Input Planned to transitioned to Hospice upon discharge as per patient's and family preference Seizure Brain mets s/p neurosurgical intervention 07/25 to brain mets continue /keppra Follows [facility] Hypothyroidism: TSH elevated Normal Free T4 Continue levothyroxine--increased to 112mcg Needs repeat Thyroid function test as outpatient Extremity edema: Chronic left upper extremity edema, chronic bilateral lower extremity edema Hypoalbuminemia Increase protein intake UTI-POA Urine Cx: E.Coli on Keflex Pacemaker: EKG paced rhythm DVT Px: Lovenox SQ Code Status Full Code for now as per patient Disposition Home with Hospice services Total Time Total Time Spent Total Time Spent (In Minutes): 40 minutes Discharge Plan Discharge Items Patient Disposition: Hospice - Home Reason For Visit: HYPONATREMIA/WEAKNESS Discharge Diagnosis: Hyponatremia Metastatic breast cancer Urinary tract infection Activity: Per Instructions section Exercise/Sports: Wait until after follow-up appointment Non-emergency contact: Primary Care Provider, [facility] and Oncologist Call non-emergency contact if: you have any medication questions, your symptoms worsen, your pain is concerning for you and you have a fever Follow-up/Referrals: Katlin Kay MD [Primary Care Provider] - (Date & Time 12/21/2020 11:20 AM Provider Katlin Kay MD Department General Internal Medicine [facility] ) Diet: Regular Fluids: 1500ml (6 cups) Addtl Attending Provider Instructions: Follow-up with your primary care physician Dr. Katlin Kay on 12/21/2020 11:20 AM Complete antibiotic course for urinary tract infection as prescribed. Pending Studies at Discharge: No Stand-Alone Forms: [facility] Medications and DC Order Prescriptions: New cephalexin 250 mg/5 mL Suspension For Reconstitution 500 mg PO Q6H 2 Days Qty: 80 RF: 0 polyethylene glycol 3350 [Miralax] 17 gram Powder In Packet 17 g PO DAILY PRN (Reason: Constipation) Qty: 30 RF: 0 docusate sodium 100 mg Capsule 100 mg PO BID PRN (Reason: Constipation) Qty: 30 RF: 0 torsemide 20 mg tablet 20 mg PO DAILY Qty: 30 RF: 0 morphine concentrate 100 mg/5 mL (20 mg/mL) Solution 5 mg PO Q4H PRN (Reason: pain) Qty: 30 RF: 0 Continued Xgeva 120 mg/1.7 mL (70 mg/mL) solution 120 mg SQ MONTHLY RF: 0 capecitabine [Xeloda] 500 mg tablet 500 mg PO BID RF: 0 fluticasone propionate 50 mcg/actuation spray,suspension 1 sprays INTRANASAL QAM RF: 0 K-Phos Original 500 mg tablet,soluble 500 mg PO BID RF: 0 ondansetron 8 mg tablet,disintegrating 8 mg translingual Q8H PRN (Reason: Nausea) RF: 0 levetiracetam 100 mg/mL solution 1,700 mg PO BID RF: 0 Vimpat 200 mg tablet 200 mg PO QPM RF: 0 Vimpat 150 mg tablet 150 mg PO QAM RF: 0 urea 20 % Cream 1 applic TOPICAL BID RF: 0 Changed levothyroxine 100 mcg Tablet 112 mcg PO QAM Qty: 30 RF: 0 Discharge Orders: Discharge Order (Routine); Ordered 12/17/20 Ordered By: Christiano Rose Admission Data Admit Date/Time: 12/11/20 18:40 Attending Provider: Christiano Rose Admit Provider: Jacquelin Estevez Primary Care Provider: Katlin Kay Other Providers: Jacquelin Estevez ; Cyndi Gann ; Dhruv Gonzalez ; Paulette Lovett ; Anamika Timmons ; Gene Clayton ; Annalise Abreu ; Josiane Ramirez Other Interventions: Discharge Summary Assessment (RN) Last Done: 12/17/20 15:49
[2020-12-17 15:10] VITALS: BP 103/71; TEMP 97.7; O2SAT 91
[2020-12-17] MEDS ORDERED: MoRPHine SULFATE 5 MG/0.25 ML UDP PO SCH (16:51)
[2020-12-17 17:24] VITALS: PULSE 103
== END 2020-12-17 17:32 | disposition hospice, home (50) | DRG 644 ==
LOC: ED 15:27 → 2N 18:40 → SUATTDRO 18:40 → 2N 19:58